=== PATIENT | male | born 1945 | race Caucasian/White ===

== ENCOUNTER 2018-06-06 11:00 | Inpatient (IN) ==
[2018-06-06] MEDS ORDERED: Sod Chloride 0.9% Inj 1,000 ML IV.SIG ONE ×2 (11:27→12:55)
--- NOTE | 2018-06-06 11:30 | ED ---
HPI General Chief complaint: Weakness Stated complaint: Weakness Time Seen by Provider: 06/06/18 11:15 Source: patient, family, RN notes reviewed and old records reviewed Mode of arrival: EMS Limitations: no limitations History of Present Illness HPI Narrative: 72 year old male presents to the emergency department for evaluation via EMS for generalized weakness. Patient has history of Prostate CA , lung CA and is currently being treated for leukemia. His last chemotherapy was a month ago. His oncologist is Dr. Mckeon with [facility], but he states he saw Dr. Purdy here on a recent admission and liked him. He is considering switching to Dr. Purdy. Patient states he is too weak to walk. He had a blood transfusion 2 days ago at [facility] and felt good after. However, he woke up yesterday morning with severe weakness and vomiting. He has not vomited today. Patient reports associated diarrhea. He denies any fevers, temp is 99.8 upon arrival. He denies any CP, SOB, Abdominal pain, constipation. He reports decreased appetite. He denies any blood in his vomit or stool. He also has hx of cardiac stent x3, not currently on any anticoagulants. Moderate severity. MD Complaint: Reports generalized weakness Onset (ago): day(s) (1) Duration: constant Location: Reports generalized Severity: moderate Relieving factors: none Exacerbating factors: none Context: Reports history of similar Associated symptoms: Reports loss of appetite and nausea/vomiting; Denies chest pain, confusion, dark stools, diaphoresis, dysuria, easy bruising, fever/chills , headaches, myalgias, rash, shortness of breath and syncope Related Data Home Medications Medication Instructions Recorded Confirmed amlodipine 10 mg PO DAILY 01/16/18 06/06/18 atorvastatin 40 mg PO DAILY 01/16/18 06/06/18 benazepril 40 mg PO DAILY 01/16/18 06/06/18 cholecalciferol (vitamin D3) 5,000 unit PO DAILY 01/16/18 06/06/18 [Vitamin D3] cyanocobalamin (vitamin B-12) 5,000 mcg SUBLINGUAL DAILY 01/16/18 06/06/18 [Vitamin B-12] ferrous sulfate 325 mg PO DAILY 01/16/18 06/06/18 hydrochlorothiazide 25 mg PO DAILY 01/16/18 06/06/18 metoprolol succinate 100 mg PO DAILY 01/16/18 06/06/18 mometasone-formoterol [Dulera] 2 puff INHALATION Q12H 01/16/18 06/06/18 niacin 1,000 mg PO DAILY 01/16/18 06/06/18 Allergies Allergy/AdvReac Type Severity Reaction Status Date / Time No Known Allergies Allergy Verified 06/06/18 14:51 Review of Systems ROS: all other systems reviewed are negative [facility] Social History Social History Substance History: No History of Abuse Second Hand Smoke Exposure: No Smoking Status: Former smoker How Often Do You Have a Drink Containing Alcohol: Never Recent Travel in [facility] within the Last 8 Weeks: No Recent Out of Country Travel within the Last 8 Weeks: No Immunization History Tetanus Immunization: Unsure Exam Const General: cooperative, no acute distress and lethargic Orientation: alert, awake and oriented x3 HENMT Head: normal to inspection Ears: hearing grossly normal bilaterally, external ears normal and TM's normal bilaterally Nose: external nose normal Mouth: oral mucosae normal Throat: posterior oropharynx normal Eyes General: appearance normal, both eyes and all related structures Conjunctivae: conjunctivae normal Pupils: PERRL Neck Neck: normal visual inspection Chest Chest: normal inspection of the chest Resp Effort & Inspection: normal respiratory effort and able to speak in complete sentences Auscultation: clear to auscultation bilaterally Cardio Rate: regular rate Rhythm: regular rhythm Heart Sounds: S1 normal and S2 normal Pulses: radial pulses present and dorsalis pedis present GI Inspection: normal to inspection Palpation: soft and nontender Skin General: no rashes or lesions noted Trauma: no lacerations or abrasions Neuro General: alert, awake and oriented x3 Speech: speech normal Extrem General: normal to inspection Psych Appearance: grossly normal and well kempt Mental Status: mental status grossly normal Speech and Movement: speech and movement normal Mood: congruent mood Affect: normal affect Attitude: cooperative Course Initial Documented Vital Signs Temperature 99.8 F H 06/06/18 11:13 Pulse Rate 93 H 06/06/18 11:13 Respiratory Rate 18 06/06/18 11:13 Blood Pressure 108/52 L 06/06/18 11:13 Pulse Oximetry 93 L 06/06/18 11:13 Last Documented Vital Signs Temperature 99.4 F 06/07/18 08:00 Pulse Rate 88 06/07/18 08:00 Respiratory Rate 20 06/07/18 08:00 Blood Pressure 98/51 L 06/07/18 08:00 Pulse Oximetry 98 06/07/18 08:00 Medical Decision Making ANDRA Attestation ANDRA supervised visit: Yes Attestation: I, Dr. Sharpe, have reviewed the advance practice practitioner's documentation and am in agreement, met with the patient face to face, made the diagnosis, and the medical decision making was done by me. *My assessment and Findings: This is a chronically ill-appearing man who presents with progressive weakness. He has pulmonary infiltrates on the right compatible with pneumonia. He is being admitted for treatment. Please see Acacia Jimenez NP's note for a more detailed H&P, final diagnosis and disposition MDM Narrative Medical decision making narrative: 72 year old male presents to the emergency department with complaints of generalized generalized weakness h/o of anemia and leukemia. IV access is obtained. EKG, CBC, CMP, lactic acid, magnesium, CK , TSH, troponin, PTT, PT/INR, type and screen, UA, chest x-ray are ordered and pending. Patient is given NS 1 L IV bolus, Zofran 4 mg IV. EKG shows SR, HR 87. CBC shows leukopenia of 2.6, 19% bandemia. CMP shows elevated BUN 25, creatinine of 2.23, elevated since previous BUN of 21, creatinine of 1.22. Lactic acid is 1.6. Magnesium is 1.5. CK is 44. Troponin is 0.26. TSH is 1.260. PTT is 36.4. PT/INR is 12.7/1.3. UA is pending. Chest x-ray shows Bilateral upper lobe densities. Decreasing density in the right lung base. Patient is given 2nd L NS bolus, Vancomycin 1 gm IV, Cefepime 2 gm IV. Patient will be admitted for pneumonia, DOM, elevated troponin. Medical Screen Exam Complete: Yes Emergency Medical Condition: Yes Differential Diagnosis Differential Diagnosis: anemia vs. electrolyte abnormality vs. dehydration vs. ACS vs. pneumonia vs. UTI vs. sepsis Medical Records Medical records reviewed: Yes I reviewed the patient's medical records. Lab Data Result diagrams: 06/07/18 05:00 06/07/18 05:00 Lab Results 0206/06/18 06/06/18 Range/Units 12:04 12:04 12:04 WBC 2.6 L (4.0-11.0) th/mm3 RBC 3.14 L (4.50-5.90) mil/mm3 Hgb 8.8 L (13.0-17.0) gm/dL Hct 25.9 L (39.0-51.0) % MCV 82.6 (80.0-100.0) fL MCH 28.0 (27.0-34.0) pg MCHC 33.9 (32.0-36.0) % RDW 25.5 H (11.6-17.2) % Plt Count 23 L (150-450) th/mm3 MPV 7.0 (7.0-11.0) fL Prelim Diff (Auto) Slide review pending Neut % (Auto) 48.5 (16.0-70.0) % Lymph % (Auto) 36.4 (9.0-44.0) % [place] % (Auto) 12.5 H (0.0-8.0) % Eos % (Auto) 2.1 (0.0-4.0) % Baso % (Auto) 0.5 (0.0-2.0) % Neut # (Auto) 1.2 L (1.8-7.7) th/mm3 Lymph # (Auto) 0.9 L (1.0-4.8) th/mm3 [place] # (Auto) 0.3 (0.0-0.9) th/mm3 Eos # (Auto) 0.1 (0.0-0.4) th/mm3 Baso # (Auto) 0.0 (0.0-0.2) th/mm3 WBC Differential Manual diff final Seg Neuts % (Manual) 38 (16-70) % Band Neuts % (Manual) 19 H (0-6) % Lymphocytes % (Manual) 28 (9-44) % Monocytes % (Manual) 7 (0-8) % Eosinophils % (Manual) 1 (0-4) % Basophils % (Manual) 3 H (0-2) % Metamyelocytes % (Man) 1 (0-1) % Blast Cells % (Manual) 3 H (0-0) % Abs Neuts (Manual) 1.5 L (1.8-7.7) th/mm3 Nucleated RBCs/100 WBC (0-0) /100 WBC Differential Comment . Platelet Estimate Low L (Normal) Platelet Morphology Enlarged H (Normal) Basophilic Stippling (None) Ovalocytes (None) PT 12.7 H (9.8-11.6) sec INR 1.3 Ratio APTT 36.4 H (23.4-31.7) sec Sodium 132 L (136-145) meq/L Potassium 4.1 (3.5-5.1) meq/L Chloride 100 (98-107) meq/L Carbon Dioxide 21.9 (21.0-32.0) meq/L Anion Gap 10 (5-15) meq/L BUN 24 H (7-18) mg/dL Creatinine 2.23 H (0.60-1.30) mg/dL Estimated GFR 29 L (>89) mL/min Random Glucose 70 L (74-106) mg/dL Lactic Acid (0.4-2.0) mmol/L Calcium 7.5 L (8.5-10.1) mg/dL Magnesium 1.5 (1.5-2.5) mg/dL Total Bilirubin 0.6 (0.2-1.0) mg/dL AST 11 L (15-37) U/L ALT 10 L (12-78) U/L Alkaline Phosphatase 37 L (45-117) U/L Total Creatine Kinase 44 (39-308) U/L Troponin I 0.26 H (0.02-0.05) ng/mL Total Protein 6.2 L (6.4-8.2) g/dL Albumin 2.2 L (3.4-5.0) g/dL TSH 1.260 (0.358-3.740) uIU/mL Urine Color (Yellw/Straw) Urine Clarity (Clear) Urine pH (5.0-8.5) Ur Specific Ramona (1.002-1.035) Urine Protein (Neg-Trace) mg/dL Urine Glucose (UA) (Negative) mg/dL Urine Ketones (Negative) mg/dL Urine Occult Blood (Negative) Urine Nitrate (Negative) Urine Bilirubin (Negative) Urine Urobilinogen (Less than 2) mg/dL Ur Leukocyte Esterase (Negative) Urine RBC (0-3) /hpf Urine WBC (0-5) /hpf Ur Squamous Epith Cells (0-5) /hpf Urine Mucus (Occasional) /lpf Micro UA Comment Ur Microscopic Review Urine Culture Comments Random Vancomycin Comment Blood Type Antibody Screen 06/06/18 06/06/18 06/06/18 Range/Units 12:04 12:04 15:41 WBC (4.0-11.0) th/mm3 RBC (4.50-5.90) mil/mm3 Hgb (13.0-17.0) gm/dL Hct (39.0-51.0) % MCV (80.0-100.0) fL MCH (27.0-34.0) pg MCHC (32.0-36.0) % RDW (11.6-17.2) % Plt Count (150-450) th/mm3 MPV (7.0-11.0) fL Prelim Diff (Auto) Neut % (Auto) (16.0-70.0) % Lymph % (Auto) (9.0-44.0) % [place] % (Auto) (0.0-8.0) % Eos % (Auto) (0.0-4.0) % Baso % (Auto) (0.0-2.0) % Neut # (Auto) (1.8-7.7) th/mm3 Lymph # (Auto) (1.0-4.8) th/mm3 [place] # (Auto) (0.0-0.9) th/mm3 Eos # (Auto) (0.0-0.4) th/mm3 Baso # (Auto) (0.0-0.2) th/mm3 WBC Differential Seg Neuts % (Manual) (16-70) % Band Neuts % (Manual) (0-6) % Lymphocytes % (Manual) (9-44) % Monocytes % (Manual) (0-8) % Eosinophils % (Manual) (0-4) % Basophils % (Manual) (0-2) % Metamyelocytes % (Man) (0-1) % Blast Cells % (Manual) (0-0) % Abs Neuts (Manual) (1.8-7.7) th/mm3 Nucleated RBCs/100 WBC (0-0) /100 WBC Differential Comment Platelet Estimate (Normal) Platelet Morphology (Normal) Basophilic Stippling (None) Ovalocytes (None) PT (9.8-11.6) sec INR Ratio APTT (23.4-31.7) sec Sodium (136-145) meq/L Potassium (3.5-5.1) meq/L Chloride (98-107) meq/L Carbon Dioxide (21.0-32.0) meq/L Anion Gap (5-15) meq/L BUN (7-18) mg/dL Creatinine (0.60-1.30) mg/dL Estimated GFR (>89) mL/min Random Glucose (74-106) mg/dL Lactic Acid 1.6 (0.4-2.0) mmol/L Calcium (8.5-10.1) mg/dL Magnesium (1.5-2.5) mg/dL Total Bilirubin (0.2-1.0) mg/dL AST (15-37) U/L ALT (12-78) U/L Alkaline Phosphatase (45-117) U/L Total Creatine Kinase (39-308) U/L Troponin I (0.02-0.05) ng/mL Total Protein (6.4-8.2) g/dL Albumin (3.4-5.0) g/dL TSH (0.358-3.740) uIU/mL Urine Color Yellow (Yellw/Straw) Urine Clarity Clear (Clear) Urine pH 6.0 (5.0-8.5) Ur Specific Ramona 1.006 (1.002-1.035) Urine Protein Negative (Neg-Trace) mg/dL Urine Glucose (UA) Negative (Negative) mg/dL Urine Ketones Negative (Negative) mg/dL Urine Occult Blood Negative (Negative) Urine Nitrate Negative (Negative) Urine Bilirubin Negative (Negative) Urine Urobilinogen Less than 2 (Less than 2) mg/dL Ur Leukocyte Esterase Negative (Negative) Urine RBC Less than 1 (0-3) /hpf Urine WBC 2 (0-5) /hpf Ur Squamous Epith Cells 1 (0-5) /hpf Urine Mucus Few H (Occasional) /lpf Micro UA Comment Culture not ind Ur Microscopic Review Not Reportable Urine Culture Comments Culture not ind Random Vancomycin Comment Blood Type O Negative Antibody Screen Negative 06/06/18 06/07/18 06/07/18 Range/Units 23:59 05:00 05:00 WBC 1.8 L (4.0-11.0) th/mm3 RBC 3.06 L (4.50-5.90) mil/mm3 Hgb 8.5 L (13.0-17.0) gm/dL Hct 25.1 L (39.0-51.0) % MCV 82.0 (80.0-100.0) fL MCH 27.7 (27.0-34.0) pg MCHC 33.8 (32.0-36.0) % RDW 25.6 H (11.6-17.2) % Plt Count 16 L* D (150-450) th/mm3 MPV 8.1 (7.0-11.0) fL Prelim Diff (Auto) Slide review pending Neut % (Auto) 59.0 (16.0-70.0) % Lymph % (Auto) 26.9 (9.0-44.0) % [place] % (Auto) 10.1 H (0.0-8.0) % Eos % (Auto) 2.9 (0.0-4.0) % Baso % (Auto) 1.1 (0.0-2.0) % Neut # (Auto) 1.1 L (1.8-7.7) th/mm3 Lymph # (Auto) 0.5 L (1.0-4.8) th/mm3 [place] # (Auto) 0.2 (0.0-0.9) th/mm3 Eos # (Auto) 0.1 (0.0-0.4) th/mm3 Baso # (Auto) 0.0 (0.0-0.2) th/mm3 WBC Differential Manual diff final Seg Neuts % (Manual) 43 (16-70) % Band Neuts % (Manual) 18 H (0-6) % Lymphocytes % (Manual) 21 (9-44) % Monocytes % (Manual) 3 (0-8) % Eosinophils % (Manual) 8 H (0-4) % Basophils % (Manual) 1 (0-2) % Metamyelocytes % (Man) (0-1) % Blast Cells % (Manual) 6 H (0-0) % Abs Neuts (Manual) 1.1 L (1.8-7.7) th/mm3 Nucleated RBCs/100 WBC 3 H (0-0) /100 WBC Differential Comment . Platelet Estimate Rare L (Normal) Platelet Morphology Normal (Normal) Basophilic Stippling Moderate H (None) Ovalocytes 1+ H (None) PT (9.8-11.6) sec INR Ratio APTT (23.4-31.7) sec Sodium 137 (136-145) meq/L Potassium 3.9 (3.5-5.1) meq/L Chloride 105 (98-107) meq/L Carbon Dioxide 22.3 (21.0-32.0) meq/L Anion Gap 10 (5-15) meq/L BUN 20 H (7-18) mg/dL Creatinine 1.84 H (0.60-1.30) mg/dL Estimated GFR 36 L (>89) mL/min Random Glucose 86 (74-106) mg/dL Lactic Acid (0.4-2.0) mmol/L Calcium 7.9 L (8.5-10.1) mg/dL Magnesium (1.5-2.5) mg/dL Total Bilirubin (0.2-1.0) mg/dL AST (15-37) U/L ALT (12-78) U/L Alkaline Phosphatase (45-117) U/L Total Creatine Kinase (39-308) U/L Troponin I 0.23 H 0.18 H (0.02-0.05) ng/mL Total Protein (6.4-8.2) g/dL Albumin (3.4-5.0) g/dL TSH (0.358-3.740) uIU/mL Urine Color (Yellw/Straw) Urine Clarity (Clear) Urine pH (5.0-8.5) Ur Specific [place] (1.002-1.035) Urine Protein (Neg-Trace) mg/dL Urine Glucose (UA) (Negative) mg/dL Urine Ketones (Negative) mg/dL Urine Occult Blood (Negative) Urine Nitrate (Negative) Urine Bilirubin (Negative) Urine Urobilinogen (Less than 2) mg/dL Ur Leukocyte Esterase (Negative) Urine RBC (0-3) /hpf Urine WBC (0-5) /hpf Ur Squamous Epith Cells (0-5) /hpf Urine Mucus (Occasional) /lpf Micro UA Comment Ur Microscopic Review Urine Culture Comments Random Vancomycin 8.5 Comment Blood Type Antibody Screen Imaging Data Attestation: I personally reviewed and interpreted this imaging study as follows : Radiologist's impression: Chest X-Ray 06/06/18 11:27 CONCLUSION: Bilateral upper lobe densities. Decreasing density in the right lung base. ECG Data EKG Prior to Arrival: No Attestation: I personally reviewed and interpreted this ECG as follows: (His EKG shows a normal sinus rhythm with a rate of 87. No acute STT wave changes.) Discharge Plan Discharge Disposition Patient Disposition: ED Admit(ED Internal Use Only) Discharge Order Discharge Orders: ED Use Only Admit Order (Routine); Ordered 06/06/18 Ordered By: Acacia Jimenez Discharge Details Diagnosis: Pneumonia, Acute kidney injury, Elevated troponin Physicians Team ED Provider: Dorene Sharpe ED Midlevel Provider: Acacia Jimenez Primary Care Provider: Vadim Myrick Attending Provider: Promise Gooden Other Providers: Eder Purdy ; Winnie Han ; Sherrell Corona Status ED Status: Left Department Discharge Information Discharge Date/Time: 06/06/18 18:31
--- NOTE | 2018-06-06 12:19 | XR ---
EXAM DATE: 06/06/2018 12:05 PM EST AGE/SEX: 72 years / Male INDICATIONS: Weakness. CLINICAL DATA: This is the patient's initial encounter. Patient reports that signs and symptoms have been present for 3 days and indicates a pain score of 0/10. MEDICAL/SURGICAL HISTORY: . leukemia . port for chemo for leukemia, cardiac stents COMPARISON: [facility] [place], CHEST 1V SINGLE AP, 05/25/2018. . FINDINGS: A single AP view of the chest demonstrates right upper lobe opacity and volume loss. Decreasing densi ty in the right lung. Minimal opacity in the left upper lobe. Right-sided port unchanged. The cardiom ediastinal contours are unremarkable. Osseous structures are intact. CONCLUSION: Bilateral upper lobe densities. Decreasing density in the right lung base. Electronically signed by: Nick Christianson MD Board Certified Radiologist 06/06/2018 12:18 PM EST
[2018-06-06 12:30] LABS: Baso % (Auto) 0.5 % (0.0-2.0); Eos # (Auto) 0.1 th/mm3 (0.0-0.4); Eos % (Auto) 2.1 % (0.0-4.0); Hematocrit 25.9 % (39.0-51.0); Hemoglobin 8.8 gm/dL (13.0-17.0); Lymph # (Auto) 0.9 th/mm3 (1.0-4.8); Lymph % (Auto) 36.4 % (9.0-44.0); Mean Corpuscular HGB Conc 33.9 % (32.0-36.0); Mean Corpuscular Volume 82.6 fL (80.0-100.0); Mono # (Auto) 0.3 th/mm3 (0.0-0.9); Mono % (Auto) 12.5 % (0.0-8.0); Neut # (Auto) 1.2 th/mm3 (1.8-7.7); Neut % (Auto) 48.5 % (16.0-70.0); Platelet Count 23 th/mm3 (150-450); Red Blood Count 3.14 mil/mm3 (4.50-5.90); Red Cell Distribution Width 25.5 % (11.6-17.2); White Blood Count 2.6 th/mm3 (4.0-11.0)
[2018-06-06 12:47] LABS: Activated Partial Thrombo Time 36.4 sec (23.4-31.7); INR 1.3 Ratio; Prothrombin Time 12.7 sec (9.8-11.6)
[2018-06-06] MEDS ORDERED: Vancomycin Inj 1,000 MG in Sodium Chlor 0.9% Inj 250 ML IV.SIG ONE (12:52)
[2018-06-06 12:53] LABS: Albumin 2.2 g/dL (3.4-5.0); Anion Gap 10 meq/L (5-15); Aspartate Aminotransferase 11 U/L (15-37); Blood Urea Nitrogen 24 mg/dL (7-18); Calcium 7.5 mg/dL (8.5-10.1); Carbon Dioxide 21.9 meq/L (21.0-32.0); Chloride 100 meq/L (98-107); Glomerular Filtration Rate 29 mL/min (>89); Glucose,Random 70 mg/dL (74-106); Magnesium 1.5 mg/dL (1.5-2.5); Potassium 4.1 meq/L (3.5-5.1); Sodium 132 meq/L (136-145)
[2018-06-06 13:04] LABS: Alanine Aminotransferase 10 U/L (12-78); Alkaline Phosphatase 37 U/L (45-117); Total Protein 6.2 g/dL (6.4-8.2); Troponin I 0.26 ng/mL (0.02-0.05)
[2018-06-06 13:10] LABS: Creatine Kinase 44 U/L (39-308)
[2018-06-06 13:13] LABS: Blast Cells 3 % (0-0); Eosinophils 1 % (0-4); Lymphocytes 28 % (9-44); Metamyelocytes 1 % (0-1); Monocytes 7 % (0-8)
--- NOTE | 2018-06-06 13:14 | ECG ---
Date Performed: 06/06/2018 Time Performed: 12:23:17 PTAGE: 72 years EKG: Sinus rhythm LOW QRS VOLTAGE IN PRECORDIAL LEADS NONSPECIFIC ST ABNORMALITIES PREVIOUS TRACING : 05/25/2018 17.15 Compared to previous tracing, heart rate has slowed, slight ST elevation in V4 and V5 is now present. DOCTOR: Manuel Landaverde Interpretating Date/Time 06/06/2018 13:13:13
[2018-06-06] MEDS ORDERED: Bisacodyl 10 MG Supp RECTAL PRN (14:14)
[2018-06-06] MEDS ORDERED: Custom Consult Pharmacy OTHER PRN (14:18)
[2018-06-06] MEDS ORDERED: Vancomycin Consult Pharmacy OTHER PRN (14:18)
[2018-06-06 16:16] LABS: Bilirubin,Urine Negative (Negative); Clarity,Urine Clear (Clear); Color,Urine Yellow (Yellw/Straw); Glucose,Urine (UA) Negative (Negative); Leukocyte Esterase,Urine Negative (Negative); Mucus,Urine Few /lpf (Occasional); Nitrite,Urine Negative (Negative); Specific Gravity,Urine 1.006 (1.002-1.035); Squamous Epithelial Cell,Urine 1 /hpf (0-5)
[2018-06-06] MEDS ORDERED: guaiFENesin/Dextromethorphan 200 MG/20 MG 10 ML UDC PO PRN (17:12)
--- NOTE | 2018-06-06 17:37 | P.HPIM ---
History of Present Illness Primary Care Physician: Vadim Myrick MD Chief Complaint: Feeling weak, fevers and chills History of Present Illness: 72 -year-old white male with a history of myelodysplastic syndrome on recent systemic chemotherapy back in April with Dr. Mckeon, prostate cancer, previous right-sided lung cancer status post resection and radiation, hypertension who was recently admitted on May 24 for sepsis with bilateral pneumonia and discharged on 05/29 with 7-day course of Levaquin, Zithromax, and steroids taper presented back with a 2-day history of increased weakness to the point where he is unable to get up and ambulate independently which is his baseline with also complains of chills and fevers. In addition he has had poor appetite for 2 days with increased nausea and episode of nonbilious vomiting today. He denies any abdominal pain or any diarrhea. He denies any dysuria urinary frequency or urgency. He reports dry cough no active shortness of breath or chest pain. He did follow-up with Dr. Mckeon post discharge and was given a blood transfusion 4 days ago on Sunday at [facility]. His chemo is currently still on hold. His who is at bedside is wanting to switch him over to Dr. Purdy as he was seen by him during the previous admission. During the previous admission, patient was on IV Zosyn , azithromycin, vancomycin. He did not require oxygen upon discharge to home. Inpatient Certification Inpatient Certification: I certify that the inpatient services were ordered in accordance with Medicare regulations governing the order. This includes certification that hospital inpatient services are reasonable and necessary and in the case of services not specified as inpatient-only under 42 CFR 419.22(n), that they are appropriately provided as inpatient services in accordance to with the 2-midnight benchmark under 43 CFR 412.3(e) Estimated Total Length of Stay (Days): 3 Plans for Post Hospital Care: Not yet determined Review of Systems Constitutional: Reports as per HPI, Reports chills, Reports fatigue, Reports fever(s), Denies headache(s), Reports malaise and Reports weakness Eyes: Denies blurry vision, Denies change in vision and Denies eye pain Ears, Nose, Mouth, and Throat: Denies abnormal hearing, Denies headache(s), Denies mouth pain, Denies nasal congestion, Denies neck pain and Denies sore throat Cardiovascular: Denies chest pain, Denies pedal edema, Denies palpitations and Denies dyspnea Respiratory: Reports cough, Reports hemoptysis, Denies excessive phlegm production, Denies dyspnea, Reports stridor and Reports wheezing Gastrointestinal: Denies abdominal pain, Denies constipation, Denies loose stools, Reports nausea and Reports vomiting Musculoskeletal: Denies back pain, Denies myalgias, Denies arthralgias, Denies neck pain and Denies numbness Skin/Breast: Denies new lesions and Denies rash Neurologic: Denies abnormal hearing, Denies headache(s), Denies focal weakness, Denies memory loss, Denies numbness and Reports weakness Psychiatric: Denies anxiety, Denies depression and Denies memory loss Endocrine: Denies cold intolerance, Denies heat intolerance and Denies palpitations Hematologic/Lymphatic: Denies easy bleeding and Denies easy bruising PMFSH Social History Social History Substance History: No History of Abuse Second Hand Smoke Exposure: No Smoking Status: Former smoker How Often Do You Have a Drink Containing Alcohol: Never Recent Travel in [facility] within the Last 8 Weeks: No Recent Out of Country Travel within the Last 8 Weeks: No Immunization History Tetanus Immunization: Unsure Medications and Allergies Allergies Allergy/AdvReac Type Severity Reaction Status Date / Time No Known Allergies Allergy Verified 06/06/18 14:51 Home Medications Medication Instructions Recorded Confirmed Type amlodipine 10 mg PO DAILY 01/16/18 06/06/18 History atorvastatin 40 mg PO DAILY 01/16/18 06/06/18 History benazepril 40 mg PO DAILY 01/16/18 06/06/18 History cholecalciferol (vitamin D3) 5,000 unit PO DAILY 01/16/18 06/06/18 History [Vitamin D3] cyanocobalamin (vitamin B-12) 5,000 mcg SUBLINGUAL DAILY 01/16/18 06/06/18 History [Vitamin B-12] ferrous sulfate 325 mg PO DAILY 01/16/18 06/06/18 History hydrochlorothiazide 25 mg PO DAILY 01/16/18 06/06/18 History metoprolol succinate 100 mg PO DAILY 01/16/18 06/06/18 History mometasone-formoterol [Dulera] 2 puff INHALATION Q12H 01/16/18 06/06/18 History niacin 1,000 mg PO DAILY 01/16/18 06/06/18 History Active Medications: Active Medications Acetaminophen (Tylenol) 650 mg PO Q4H PRN PRN Reason: Temp > 100.4 Al Hydroxide/Mg Hydroxide (Milk Of Magnesia Liq) 30 ml PO Q12H PRN PRN Reason: Mild Constipation Albuterol (Duoneb Neb (Prn)) 1 ampul NEB Q4HR NEB PRN PRN Reason: SHORTNESS OF BREATH Bisacodyl (Dulcolax Supp) 10 mg RECTAL DAILY PRN PRN Reason: SEVERE CONSITIPATION Guaifenesin/Dextromethorphan (Robitussin Dm Liq) 10 ml PO Q4H PRN PRN Reason: COUGH Azithromycin 250 mg/ Sodium (Chloride) 250 mls @ 250 mls/hr IV.SIG Q24H [facility] Cefepime HCl 2,000 mg/ Sodium (Chloride) 100 mls @ 200 mls/hr IV.SIG Q12H [facility] Sodium Chloride (Ns Inj) 1,000 mls @ 100 mls/hr IV.CONT .Q10H [facility] Lactulose (Lactulose Liq) 30 ml PO DAILY PRN PRN Reason: SEVERE CONSITIPATION Ondansetron HCl (Zofran Inj) 4 mg IV.PUSH Q6H PRN PRN Reason: NAUSEA OR VOMITING Pharmacy Profile Note (Custom Consult Pharmacy) 1 each OTHER UNSCH PRN PRN Reason: PHARMACY DOCUMENTATION Pharmacy Profile Note (Vancomycin Consult Pharmacy) 1 each OTHER UNSCH PRN PRN Reason: Pharmacy to dose Senna/Docusate Sodium (Ольга-Colace) 1 tab PO BID [facility] Sennosides (Senokot) 17.2 mg PO Q12H PRN PRN Reason: Moderate Constipation Sodium Chloride (Ns Flush) 2 ml IV.FLUSH PRN PRN PRN Reason: FLUSH AFTER USING IV ACCESS Sodium Chloride (Ns Flush) 2 ml IV.FLUSH BID [facility] Sodium Chloride (Ns Flush) 2 ml IV.FLUSH PRN PRN PRN Reason: FLUSH AFTER USING IV ACCESS Physical Exam Vital signs: Vital Signs 06/06/18 11:13 06/06/18 11:27 06/06/18 11:55 Temperature 99.8 F H Pulse Rate 93 H 92 H Respiratory Rate 18 Blood Pressure 108/52 L 92/52 L Pulse Oximetry 93 L 98 06/06/18 15:49 Temperature Pulse Rate 91 H Respiratory Rate 20 Blood Pressure 113/56 L Pulse Oximetry 97 Intake & Output 06/05/18 06/06/18 06/06/18 18:59 06:59 18:59 Intake Total 2350 / 2350 Balance 2350 / 2350 Weight 86.183 kg Intake: IV 2350 / 2350 Maxipime Inj 2,000 MG In NS Inj 100 / 100 100 ML @ 200 mls/hr IV.SIG ONCE ONE Rx#:[id number] NS Inj 1,000 ML @ Wide Open IV. 1999 SIG BOLUS ONE Rx#:[id number] Vancomycin Inj 1,000 MG In NS 250 / 250 Inj 250 ML @ 250 mls/hr IV.SIG ONCE ONE Rx#:[id number] Narrative: GENERAL: Well-nourished well-developed ill-appearing elderly male sitting up in the ED stretcher in the emergency room SKIN: Warm and dry. HEAD: Atraumatic. Normocephalic. EYES: Pupils equal and round. No scleral icterus. No injection or drainage. ENT: No nasal bleeding or discharge. Mucous membranes pink and moist. NECK: Trachea midline. No JVD. CARDIOVASCULAR: Regular rate and rhythm. RESPIRATORY: No accessory muscle use. Few bilateral crackles, no wheezes, no rhonchi GASTROINTESTINAL: Abdomen soft, non-tender, nondistended. Normoactive bowel sounds MUSCULOSKELETAL: Extremities without clubbing, cyanosis, or edema. No obvious deformities. NEUROLOGICAL: Awake and alert person place and time. No obvious cranial nerve deficits. Motor grossly within normal limits. Five out of 5 muscle strength in the arms and legs. Normal speech. PSYCHIATRIC: Appropriate mood and affect; insight and judgment normal. Results Labs CBC & Chem 7: 06/12/18 05:00 06/12/18 05:00 Imaging Impressions Chest X-Ray 06/06/18 11:27 CONCLUSION: Bilateral upper lobe densities. Decreasing density in the right lung base. Caprini VTE Risk Assessment Caprini VTE Risk Assessment: Moderate/High Risk (score >= 2) Caprini Risk Assessment Model: Point Value = 1 Point Value = 2 Point Value = 3 Point Value = 5 Age 41-60 Minor surgery BMI > 25 kg/m2 Swollen legs Varicose veins or History of unexplained or recurrent spontaneous Oral contraceptives or hormone replacement Sepsis (< 1 month) Serious lung disease, including pneumonia (< 1 month) Abnormal pulmonary function Acute myocardial infarction Congestive heart failure (< 1 month) History of inflammatory bowel disease Medical patient at bed rest Age 61-74 Arthroscopic surgery Major open surgery (> 45 min) Laparoscopic surgery (> 45 min) Malignancy Confined to bed (> 72 hours) Immobilizing plaster cast Central venous access Age >= 75 History of VTE Family history of VTE Factor V Leiden Prothrombin [id number] Lupus anticoagulant Anticardiolipin antibodies Elevated serum homocysteine Heparin-induced thrombocytopenia Other congenital or acquired thrombophilia Stroke (< 1 month) Elective arthroplasty Hip, pelvis, or leg fracture Acute spinal cord injury (< 1 month) Prophylaxis Regimen: Total Risk Factor Score Risk Level Prophylaxis Regimen 0-1 Low Early ambulation 2 Moderate Order ONE of the following: *Sequential Compression Device (SCD) *Heparin 5000 units SQ BID 3-4 Higher Order ONE of the following medications: *Heparin 5000 units SQ TID *Enoxaparin/Lovenox 40 mg SQ daily (WT < 150 kg, CrCl > 30 mL/min) *Enoxaparin/Lovenox 30 mg SQ daily (WT < 150 kg, CrCl > 10-29 mL/min) *Enoxaparin/Lovenox 30 mg SQ BID (WT < 150 kg, CrCl > 30 mL/min) AND/OR *Sequential Compression Device (SCD) 5 or more Highest Order ONE of the following medications: *Heparin 5000 units SQ TID (Preferred with Epidurals) *Enoxaparin/Lovenox 40 mg SQ daily (WT < 150 kg, CrCl > 30 mL/min) *Enoxaparin/Lovenox 30 mg SQ daily (WT < 150 kg, CrCl > 10-29 mL/min) *Enoxaparin/Lovenox 30 mg SQ BID (WT < 150 kg, CrCl > 30 mL/min) AND *Sequential Compression Device (SCD) Assessment and Plan Plan 72-year-old male with history of 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 IV vancomycin given in the emergency room, will not continue due to acute kidney injury and will start IV Zyvox Acute kidney injury superimposed on chronic kidney disease stage IIlikely due to poor oral intake, organ dysfunction due to sepsis-IV fluid hydration, avoid nephrotoxins, hold home TIESHA inhibitor due to also superimposed hypotension Elevated troponin Ipatient has no complaint of chest pain this may be due to his acute kidney injury, will trend troponin I due to history of CAD and follow- up clinically. High-grade myelodysplastic syndromeconsult Dr. Purdy who had seen the patient during the previous hospitalization. Pancytopenia -worsening platelets likely due to sepsis and myelodysplastic syndrome, monitor, transfusions as needed Hyponatremia due to hypovolemianormal saline DO NOT RESUSCITATE status Physical therapy evaluation Discussed with at bedside
[2018-06-06] MEDS: Azithromycin Inj 250 MG in Sodium Chlor 0.9% Inj 250 ML IV.SIG SCH (18:01)
[2018-06-06] MEDS: Sod Chloride 0.9% Inj 1,000 ML IV.CONT SCH (18:01)
--- NOTE | 2018-06-06 18:19 | P.CON ---
History of Present Illness Service: Hematology/oncology. Consult date: 06/06/18 Requesting Physician: Dulce Maurice Reason for Consult: High-grade myelodysplastic syndrome. Pancytopenia. Primary Care Provider: Vadim Myrick MD Chief Complaint: Feeling weak, fevers and chills. History of Present Illness: Oncologic history and treatment history: 1. In January 2018 he was diagnosed with high-grade myelodysplastic syndrome; RAEB-2 with close to 20% blasts on bone marrow on cytologic review. He was initiated on systemic chemotherapy with Dacogen in January and has thus far received 3 cycles; day 1-5 of a 28-day cycle. Per his he is scheduled to resume treatment next week (under the care of Dr. Mckeon of [place] [facility]). 2. 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 3. In 2017 he was diagnosed with a left-sided lung carcinoma which was treated with SB RT while he was still living in [place], [place]. 4. In 2005 or 2006 the patient was diagnosed with carcinoma of the prostate, he underwent prostatectomy. In 2011 he was found to have relapsed within the bladder and underwent external beam radiation therapy (in [place]). History of presenting illness: Mr. Cabral presents to [facility] emergency department with complaints of generalized weakness and fatigue. He was discharged from this facility on after having spent 5 days in the hospital including 2 days in the critical care unit. He at that time was treated for neutropenic sepsis secondary to pneumonia. The patient reports having required red cell transfusion earlier this week; 06/03/2018 at [facility] through the office of his primary oncologist Dr. Mckeon. Upon evaluation in the emergency department patient was noted to be pancytopenic , his neutrophil count was noted to be 1.5, hemoglobin 8.8 g/dL and platelet count of 23,000 per microliter. The patient noted to have a low-grade temp of 99.8 F, chest x-ray revealed improvement in consolidative changes involving the right lower lobe. He is unable to give me much of a history because he seems to drift in and out of sleep. He has clearly been failing to thrive. Review of Systems Patient reports generalized weakness, fatigue, loss of appetite, fevers feeling. HEENT: Denies headaches, blurry vision, difficulty swallowing shortness of 30. Respiratory: Reports difficulty breathing with minimal exertion. Reports cough denies hemoptysis denies phlegm production. Cardiovascular: Denies angina-like chest pain, PND, orthopnea. GI: Reports decreased appetite, denies nausea, vomiting, diarrhea, hematochezia or melena. UG: Denies dysuria hematuria. Skin: No complaints. 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 No other complaints reported. ON LICENSE OF [facility] - History History Provided By: Patient - Medical History Medical History: Medical History (Last Reviewed 06/06/18 @ 18:14 by Eder Purdy MD) Anemia CAD (coronary artery disease) Carcinoma of prostate Chronic kidney disease Deep vein thrombosis (DVT) of right lower extremity GERD (gastroesophageal reflux disease) HTN (hypertension) Hyperlipemia Myelodysplastic syndrome Non-small cell carcinoma of left lung PVD (peripheral vascular disease) Presence of IVC filter Thrombocytopenia Vitamin D deficiency - Surgical History Surgical History: Surgical History (Last Reviewed 06/06/18 @ 18:14 by Eder Purdy MD) H/O heart artery stent History of prostate surgery S/P lobectomy of lung S/P right coronary artery (RCA) stent placement - Family History Family History: Family History (Last Reviewed 06/06/18 @ 18:14 by Eder Purdy MD) Other Family history normal - Tobacco History Second Hand Smoke Exposure: No Smoking Status: Former smoker - Alcohol History How Often Do You Have a Drink Containing Alcohol: Never - Substance Use History Substance History: No History of Abuse - Travel History Recent Travel in the [place] Within the Last 8 Weeks: No Recent Travel Out of the Country Within the Last 8 Weeks: No - Immunization History Tetanus Immunization: Unsure Medications and Allergies Active Medications: Active Medications Acetaminophen (Tylenol) 650 mg PO Q4H PRN PRN Reason: Temp > 100.4 Al Hydroxide/Mg Hydroxide (Milk Of Magnesia Liq) 30 ml PO Q12H PRN PRN Reason: Mild Constipation Albuterol (Duoneb Neb (Prn)) 1 ampul NEB Q4HR NEB PRN PRN Reason: SHORTNESS OF BREATH Atorvastatin Calcium (Lipitor) 40 mg PO DAILY D[facility]ON Bisacodyl (Dulcolax Supp) 10 mg RECTAL DAILY PRN PRN Reason: SEVERE CONSITIPATION Ferrous Sulfate (Ferosul) 325 mg PO DAILY COUNTS INCLUDE 234 BEDS AT THE [facility] Guaifenesin/Dextromethorphan (Robitussin Dm Liq) 10 ml PO Q4H PRN PRN Reason: COUGH Azithromycin 250 mg/ Sodium (Chloride) 250 mls @ 250 mls/hr IV.SIG Q24H DILLON Last Admin: 06/06/18 18:01 Dose: 250 mls/hr Cefepime HCl 2,000 mg/ Sodium (Chloride) 100 mls @ 200 mls/hr IV.SIG Q12H DILLON Sodium Chloride (Ns Inj) 1,000 mls @ 100 mls/hr IV.CONT .Q10H COUNTS INCLUDE 234 BEDS AT THE [facility] Last Admin: 06/06/18 18:01 Dose: 100 mls/hr Linezolid (Zyvox 600 Mg Premix) 300 mls @ 300 mls/hr IV.SIG Q12H [facility] Lactulose (Lactulose Liq) 30 ml PO DAILY PRN PRN Reason: SEVERE CONSITIPATION Metoprolol Succinate (Toprol Xl) 25 mg PO DAILY COUNTS INCLUDE 234 BEDS AT THE [facility] Ondansetron HCl (Zofran Inj) 4 mg IV.PUSH Q6H PRN PRN Reason: NAUSEA OR VOMITING Patient Own Medication: Mometasone- Formoterol [Dulera] 2 Puff 0 each INH Q12H COUNTS INCLUDE 234 BEDS AT THE [facility] Pharmacy Profile Note (Custom Consult Pharmacy) 1 each OTHER UNSCH PRN PRN Reason: PHARMACY DOCUMENTATION Senna/Docusate Sodium (Ольга-Colace) 1 tab PO BID COUNTS INCLUDE 234 BEDS AT THE [facility] Sennosides (Senokot) 17.2 mg PO Q12H PRN PRN Reason: Moderate Constipation Sodium Chloride (Ns Flush) 2 ml IV.FLUSH PRN PRN PRN Reason: FLUSH AFTER USING IV ACCESS Sodium Chloride (Ns Flush) 2 ml IV.FLUSH BID COUNTS INCLUDE 234 BEDS AT THE [facility] Sodium Chloride (Ns Flush) 2 ml IV.FLUSH PRN PRN PRN Reason: FLUSH AFTER USING IV ACCESS Allergies Allergy/AdvReac Type Severity Reaction Status Date / Time No Known Allergies Allergy Verified 06/06/18 14:51 Home Medications Medication Instructions Recorded Confirmed Type amlodipine 10 mg PO DAILY 01/16/18 06/06/18 History atorvastatin 40 mg PO DAILY 01/16/18 06/06/18 History benazepril 40 mg PO DAILY 01/16/18 06/06/18 History cholecalciferol (vitamin D3) 5,000 unit PO DAILY 01/16/18 06/06/18 History [Vitamin D3] cyanocobalamin (vitamin B-12) 5,000 mcg SUBLINGUAL DAILY 01/16/18 06/06/18 History [Vitamin B-12] ferrous sulfate 325 mg PO DAILY 01/16/18 06/06/18 History hydrochlorothiazide 25 mg PO DAILY 01/16/18 06/06/18 History metoprolol succinate 100 mg PO DAILY 01/16/18 06/06/18 History mometasone-formoterol [Dulera] 2 puff INHALATION Q12H 01/16/18 06/06/18 History niacin 1,000 mg PO DAILY 01/16/18 06/06/18 History Physical Exam Vital signs: Vital Signs 06/06/18 11:13 06/06/18 11:27 06/06/18 11:55 Temperature 99.8 F H Pulse Rate 93 H 92 H Respiratory Rate 18 Blood Pressure 108/52 L 92/52 L Pulse Oximetry 93 L 98 06/06/18 15:49 Temperature Pulse Rate 91 H Respiratory Rate 20 Blood Pressure 113/56 L Pulse Oximetry 97 Intake & Output 06/05/18 06/06/18 06/06/18 18:59 06:59 18:59 Intake Total 2350 / 2350 Balance 2350 / 2350 Weight 86.183 kg Intake: IV 2350 / 2350 Maxipime Inj 2,000 MG In NS Inj 100 / 100 100 ML @ 200 mls/hr IV.SIG ONCE ONE Rx#:[id number] NS Inj 1,000 ML @ Wide Open IV. 1999 SIG BOLUS ONE Rx#:[id number] Vancomycin Inj 1,000 MG In NS 250 / 250 Inj 250 ML @ 250 mls/hr IV.SIG ONCE ONE Rx#:[id number] Narrative: General physical appearance: Elderly male, laying in bed, appears to be chronically ill, pale, drifts in and out of sleep. HEENT: Head atraumatic no cephalic, conjunctivae pale, sclerae anicteric, oral exam dry mucous membranes. Neck exam: No palpable cervical or supraclavicular adenopathy. Respiratory exam: Good air movement bilaterally over the upper and middle lung zones, poor inspiratory effort, decreased bibasilar breath sounds. No rhonchi, rales or wheezes. Cardiovascular: Regular rate and rhythm, S1-S2 systolic murmur. Abdominal exam: Protuberant, soft, no obvious tenderness, no obvious organ enlargement specifically hepatosplenic megaly. Lower tremors: No pretibial edema no calf tenderness. Muscular skeletal: Generally decreased muscle mass. 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 Psychiatric: Difficult to assess, he is somewhat somnolent and sleepy/drowsy. But it seems to be oriented to place and time and person. Results - Labs CBC & Chem 7: 06/06/18 12:04 06/06/18 12:04 Labs: Laboratory Results - last 24 hr 06/06/18 06/06/18 06/06/18 12:04 12:04 12:04 WBC 2.6 L RBC 3.14 L Hgb 8.8 L Hct 25.9 L MCV 82.6 MCH 28.0 MCHC 33.9 RDW 25.5 H Plt Count 23 L MPV 7.0 Prelim Diff (Auto) Slide review pending Neut % (Auto) 48.5 Lymph % (Auto) 36.4 Cannon % (Auto) 12.5 H Eos % (Auto) 2.1 Baso % (Auto) 0.5 Neut # (Auto) 1.2 L Lymph # (Auto) 0.9 L Cannon # (Auto) 0.3 Eos # (Auto) 0.1 Baso # (Auto) 0.0 WBC Differential Manual diff final Seg Neuts % (Manual) 38 Band Neuts % (Manual) 19 H Lymphocytes % (Manual) 28 Monocytes % (Manual) 7 Eosinophils % (Manual) 1 Basophils % (Manual) 3 H Metamyelocytes % (Man) 1 Blast Cells % (Manual) 3 H Abs Neuts (Manual) 1.5 L Differential Comment . Platelet Estimate Low L Platelet Morphology Enlarged H PT 12.7 H INR 1.3 APTT 36.4 H Sodium 132 L Potassium 4.1 Chloride 100 Carbon Dioxide 21.9 Anion Gap 10 BUN 24 H Creatinine 2.23 H Estimated GFR 29 L Random Glucose 70 L Lactic Acid Calcium 7.5 L Magnesium 1.5 Total Bilirubin 0.6 AST 11 L ALT 10 L Alkaline Phosphatase 37 L Total Creatine Kinase 44 Troponin I 0.26 H Total Protein 6.2 L Albumin 2.2 L TSH 1.260 Urine Color Urine Clarity Urine pH Ur Specific Henry Urine Protein Urine Glucose (UA) Urine Ketones Urine Occult Blood Urine Nitrate Urine Bilirubin Urine Urobilinogen Ur Leukocyte Esterase Urine RBC Urine WBC Ur Squamous Epith Cells Urine Mucus Micro UA Comment Ur Microscopic Review Urine Culture Comments Blood Type Antibody Screen 06/06/18 06/06/18 06/06/18 12:04 12:04 15:41 WBC RBC Hgb Hct MCV MCH MCHC RDW Plt Count MPV Prelim Diff (Auto) Neut % (Auto) Lymph % (Auto) Cannon % (Auto) Eos % (Auto) Baso % (Auto) Neut # (Auto) Lymph # (Auto) Cannon # (Auto) Eos # (Auto) Baso # (Auto) WBC Differential Seg Neuts % (Manual) Band Neuts % (Manual) Lymphocytes % (Manual) Monocytes % (Manual) Eosinophils % (Manual) Basophils % (Manual) Metamyelocytes % (Man) Blast Cells % (Manual) Abs Neuts (Manual) Differential Comment Platelet Estimate Platelet Morphology PT INR APTT Sodium Potassium Chloride Carbon Dioxide Anion Gap BUN Creatinine Estimated GFR Random Glucose Lactic Acid 1.6 Calcium Magnesium Total Bilirubin AST ALT Alkaline Phosphatase Total Creatine Kinase Troponin I Total Protein Albumin TSH Urine Color Yellow Urine Clarity Clear Urine pH 6.0 Ur Specific Henry 1.006 Urine Protein Negative Urine Glucose (UA) Negative Urine Ketones Negative Urine Occult Blood Negative Urine Nitrate Negative Urine Bilirubin Negative Urine Urobilinogen Less than 2 Ur Leukocyte Esterase Negative Urine RBC Less than 1 Urine WBC 2 Ur Squamous Epith Cells 1 Urine Mucus Few H Micro UA Comment Culture not ind Ur Microscopic Review Not Reportable Urine Culture Comments Culture not ind Blood Type O Negative Antibody Screen Negative - Imaging Impressions Chest X-Ray 06/06/18 11:27 CONCLUSION: Bilateral upper lobe densities. Decreasing density in the right lung base. Assessment and Plan - Plan Mr. Cabral is a 72-year-old man with a history of high-grade myelodysplastic syndrome; RAEB-2 who had been on treatment with Dacogen under the care of Dr. Henri Mckeon of the [place] [facility]. Most recent cycle was delivered in April 2018, restaging bone marrow biopsy indicates interval decrease in bone marrow blast percentage after 3 cycles of Dacogen. Additional oncologic diagnoses include prostate carcinoma, bladder carcinoma and lung carcinoma. Patient was admitted to this facility about 2 weeks ago with high-grade fevers in the setting of neutropenia. He developed neutropenic sepsis requiring combination antibiotic therapy and also required a brief duration of growth factor support therapy with G-CSF. He was discharged from [facility] on . Patient tells me on 06/03/2018 he required red cell transfusion at [facility]. He comes in with generalized weakness fatigue, loss of appetite and malaise. Clearly he is failing to thrive. I have been asked to see him to help optimize management. Recommendations: 1. Myelodysplastic syndrome with resultant pancytopenia: At this time I would recommend supportive care, ultimately he will require resumption of systemic therapy with Dacogen to delay progression to acute myeloid leukemia and to help manage his cytopenias. His hemoglobin is 8.8 g/dL, recommend transfusion to maintain hemoglobin of over 7.5 g/dL. He does not require platelet transfusion at this time because he is not actively bleeding. 2. Recent pneumonia: It may be reasonable to resume IV antibiotic therapy, it is not clear whether he may be getting septic again, he does have low-grade fevers. Blood cultures have been drawn today, influenza nasal wash antigen was negative. 3. Transfer to the oncology unit for close inpatient monitoring. History of lung cancer, prostate cancer and bladder cancer: These have been previously treated based on PET/CT imaging performed in the summer 2017 his solid tumor oncologic diagnoses are in remission.
[2018-06-06] MEDS ORDERED: MOMETASONE FORMOTEROL INH SCH (19:00)
[2018-06-06] MEDS: Senna/Docusate Sodium 8.6/50 MG Tablet PO SCH (22:02)
[2018-06-07 06:51] LABS: Baso % (Auto) 1.1 % (0.0-2.0); Eos # (Auto) 0.1 th/mm3 (0.0-0.4); Eos % (Auto) 2.9 % (0.0-4.0); Hematocrit 25.1 % (39.0-51.0); Hemoglobin 8.5 gm/dL (13.0-17.0); Lymph # (Auto) 0.5 th/mm3 (1.0-4.8); Lymph % (Auto) 26.9 % (9.0-44.0); Mean Corpuscular HGB Conc 33.8 % (32.0-36.0); Mean Corpuscular Hemoglobin 27.7 pg (27.0-34.0); Mean Platelet Volume 8.1 fL (7.0-11.0); Mono # (Auto) 0.2 th/mm3 (0.0-0.9); Mono % (Auto) 10.1 % (0.0-8.0); Neut # (Auto) 1.1 th/mm3 (1.8-7.7); Red Blood Count 3.06 mil/mm3 (4.50-5.90); Red Cell Distribution Width 25.6 % (11.6-17.2); White Blood Count 1.8 th/mm3 (4.0-11.0)
[2018-06-07 07:01] LABS: Calcium 7.9 mg/dL (8.5-10.1); Carbon Dioxide 22.3 meq/L (21.0-32.0); Potassium 3.9 meq/L (3.5-5.1)
[2018-06-07 07:05] LABS: Troponin I 0.18 ng/mL (0.02-0.05); Vancomycin,Random 8.5 Comment
[2018-06-07 07:07] LABS: Platelet Count 16 th/mm3 (150-450)
[2018-06-07 08:57] LABS: Basophilic Stippling Moderate; Blast Cells 6 % (0-0); Eosinophils 8 % (0-4); Lymphocytes 21 % (9-44); Monocytes 3 % (0-8); Platelet Estimate Rare (Normal); Platelet Morphology Normal (Normal); Tallied Nucleated RBC 3 (0-0)
[2018-06-07 08:58] LABS: Ovalocytes 1+
[2018-06-07] MEDS: Senna/Docusate Sodium 8.6/50 MG Tablet PO SCH ×2 (10:22→22:17)
[2018-06-07] MEDS: Ferrous Sulfate 325 MG Tablet PO SCH (10:31)
--- NOTE | 2018-06-07 12:23 | P.PNIM ---
Subjective Interval history: In bed appears chronically ill. No fever or chills. feels a little improved. Very tired. Not much cough Physical Exam Vital signs: Vital Signs 06/06/18 15:49 06/06/18 20:00 06/06/18 23:55 Temperature 97.6 F 98.1 F Pulse Rate 91 H 99 H 97 H Respiratory Rate 20 18 18 Blood Pressure 113/56 L 115/62 103/54 L Pulse Oximetry 97 99 97 06/07/18 03:34 06/07/18 08:00 06/07/18 11:15 Temperature 98.6 F 99.4 F Pulse Rate 95 H 88 88 Respiratory Rate 18 20 20 Blood Pressure 110/49 L 98/51 L 98/50 L Pulse Oximetry 98 98 94 L Intake & Output 06/06/18 06/07/18 06/07/18 18:59 06:59 18:59 Intake Total 2350 / 2350 780 / 780 Output Total 1300 / 1300 Balance 2350 / 2350 -520 / -520 Weight 86.183 kg 81.4 kg Intake: IV 2350 / 2350 300 / 300 Maxipime Inj 2,000 MG In NS Inj 100 / 100 100 ML @ 200 mls/hr IV.SIG ONCE ONE Rx#:[id number] Zyvox 600 mg Premix 300 ML @ 300 / 300 300 mls/hr IV.SIG Q12H DILLON Rx#: [id number] NS Inj 1,000 ML @ Wide Open IV. 1999 SIG BOLUS ONE Rx#:[id number] Vancomycin Inj 1,000 MG In NS 250 / 250 Inj 250 ML @ 250 mls/hr IV.SIG ONCE ONE Rx#:[id number] Oral 480 / 480 Output: Urine 1300 / 1300 Other: Date of Last Bowel Movement 06/06/18 Narrative: GENERAL: Well-nourished well-developed ill-appearing elderly male appears in nad. CARDIOVASCULAR: Regular rate and rhythm. RESPIRATORY: No accessory muscle use. Few bilateral crackles, no wheezes, no rhonchi GASTROINTESTINAL: Abdomen soft, non-tender, nondistended. Normoactive bowel sounds MUSCULOSKELETAL: Extremities without clubbing, cyanosis, or edema. No obvious deformities. NEUROLOGICAL: Awake and alert person place and time. No obvious cranial nerve deficits. Motor grossly within normal limits. Five out of 5 muscle strength in the arms and legs. Normal speech. PSYCHIATRIC: Appropriate mood and affect; insight and judgment normal. Results Labs CBC & Chem 7: 06/07/18 05:00 06/07/18 05:00 Labs: Microbiology 06/06/18 12:04 Blood - Peripheral Aerobic Blood Culture - Preliminary No growth in 1 day 06/06/18 12:04 Blood - Peripheral Anaerobic Blood Culture - Preliminary No growth in 1 day 06/06/18 11:59 Blood - Peripheral Aerobic Blood Culture - Preliminary No growth in 1 day 06/06/18 11:59 Blood - Peripheral Anaerobic Blood Culture - Preliminary No growth in 1 day 06/06/18 12:10 Nasal Wash Influenza Types A,B Antigen - Final Negative for FLU A and B antigen Infection due to influenza A or B cannot be ruled out since the antigen present in the sample may be below the detection limit of the test. Assessment and Plan Plan 72-year-old male with history of 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 IV vancomycin given in the emergency room, will not continue due to acute kidney injury and will start IV Zyvox Acute kidney injury superimposed on chronic kidney disease stage IIlikely due to poor oral intake, organ dysfunction due to sepsis-IV fluid hydration, avoid nephrotoxins, hold home TIESHA inhibitor due to also superimposed hypotension Elevated troponin Ipatient has no complaint of chest pain this may be due to his acute kidney injury, will trend troponin I due to history of CAD and follow- up clinically. High-grade myelodysplastic syndromeconsult Dr. Purdy who had seen the patient during the previous hospitalization. Pancytopenia -worsening platelets likely due to sepsis and myelodysplastic syndrome, monitor, transfusions as needed Hyponatremia due to hypovolemianormal saline DO NOT RESUSCITATE status Physical therapy evaluation Discussed with the patient, nurse Progress Note: Quality VTE Deep Vein Thrombosis/Pulmonary Embolism Present on Admission: No
[2018-06-07] MEDS ORDERED: Vancomycin Inj 1,000 MG in Sodium Chlor 0.9% Inj 250 ML IV.SIG SCH (14:00)
--- NOTE | 2018-06-07 15:28 | P.DIET ---
Nutritional Evaluation Type of nutrition evaluation: initial Nutrition screening: Weight Loss > 10 lbs Objective - Diagnosis Pneumonia, DOM - Objective Body Mass Index: 27 [place] body weight: 67 kg (148lb) % IBW: 120 Body Weight Used for Calculations: Actual Energy Needs - Lower Range (kCal/kg): 25 Energy Needs - Upper Range (kCal/kg): 30 Lower Limit kCal/kg (kCals): 2,025 Upper Limit kCal/kg (kCals): 2,430 Lower Limit Protein Factor (Grams per Kg): 1.0 Upper Limit Protein Factor (Grams per Kg): 1.2 Lower Protein Needs (Protein): 81 Upper Protein Needs (Protein): 97 Dietitian Reviewed in Medical Record: Current diet, Curent medications, Intake & Output, Labs, Medical history Diet Order: Regular Oral Diet Intake Amount: Fair 50-75% Objective Comments: PMH; prostate, lung ca, HTN, CKD, CAD Labs; BUN 20, Cr 1.84, GFR 36 Medications; Ferusal Assessment Assessment: Weight loss screen; Pt presents to ED with weakness N/V/D and decreased appetite x2 days and is currently at nutritional risk r/t multiple cancer diagnoses and recent unplanned weight loss. Pt currently ordered for regular diet with 75% PO intake today, otherwise PO intake not yet established. Will send pt Ensure supplement BID in efforts to support PO intake and minimize further weight loss. Each can of ensure will provide 250kcal and 9g protein. Will continue to monitor PO intake, supplement acceptance and clinical course. Recommendations: 1. Ensure nutritional supplement BID 2. Monitor supplement acceptance Dietitian to Monitor: Lab values, Supplement acceptance, Weight change, PO Intake, Medical course
[2018-06-07] MEDS: Azithromycin Inj 250 MG in Sodium Chlor 0.9% Inj 250 ML IV.SIG SCH (16:43)
[2018-06-07] MEDS ORDERED: Loperamide 2 MG Capsule PO ONE (17:57)
--- NOTE | 2018-06-07 18:00 | P.PNONC ---
Subjective Interval history: Pt seen and examined, VS, labs, medications and microbiology reviewed. Patient reports feeling cold, reports diarrhea and reports feeling tired profoundly. He tells me he has no appetite. Blood cultures indicate gram-positive cocci in pairs and clusters noted on most recent update from microbiology lab. Objective Vital Signs/Intake & Output: Vital Signs 06/06/18 20:00 06/06/18 23:55 06/07/18 03:34 Temperature 97.6 F 98.1 F 98.6 F Pulse Rate 99 H 97 H 95 H Respiratory Rate 18 18 18 Blood Pressure 115/62 103/54 L 110/49 L Pulse Oximetry 99 97 98 06/07/18 08:00 06/07/18 11:15 06/07/18 16:00 Temperature 99.4 F 99.1 F Pulse Rate 88 88 97 H Respiratory Rate 20 20 20 Blood Pressure 98/51 L 98/50 L 114/50 L Pulse Oximetry 98 94 L 97 Intake & Output 06/06/18 06/07/18 06/07/18 18:59 06:59 18:59 Intake Total 2350 / 2350 780 / 780 550 / 550 Output Total 1300 / 1300 Balance 2350 / 2350 -520 / -520 550 / 550 Weight 86.183 kg 81.4 kg Intake: IV 2350 / 2350 300 / 300 550 / 550 Azithromycin Inj 250 MG In NS 250 / 250 Inj 250 ML @ 250 mls/hr IV.SIG Q24H [facility] Rx#:[id number] Maxipime Inj 2,000 MG In NS Inj 100 / 100 100 ML @ 200 mls/hr IV.SIG ONCE ONE Rx#:[id number] Zyvox 600 mg Premix 300 ML @ 300 / 300 300 / 300 300 mls/hr IV.SIG Q12H [facility] Rx#: [id number] NS Inj 1,000 ML @ Wide Open IV. 1999 SIG BOLUS ONE Rx#:[id number] Vancomycin Inj 1,000 MG In NS 250 / 250 Inj 250 ML @ 250 mls/hr IV.SIG ONCE ONE Rx#:[id number] Oral 480 / 480 Output: Urine 1300 / 1300 Other: Date of Last Bowel Movement 06/06/18 Result Diagrams: 06/07/18 05:00 06/07/18 05:00 Laboratory Results: Laboratory Results - last 24 hr 06/06/18 06/07/18 06/07/18 23:59 05:00 05:00 WBC 1.8 L RBC 3.06 L Hgb 8.5 L Hct 25.1 L MCV 82.0 MCH 27.7 MCHC 33.8 RDW 25.6 H Plt Count 16 L* D MPV 8.1 Prelim Diff (Auto) Slide review pending Neut % (Auto) 59.0 Lymph % (Auto) 26.9 [place] % (Auto) 10.1 H Eos % (Auto) 2.9 Baso % (Auto) 1.1 Neut # (Auto) 1.1 L Lymph # (Auto) 0.5 L [place] # (Auto) 0.2 Eos # (Auto) 0.1 Baso # (Auto) 0.0 WBC Differential Manual diff final Seg Neuts % (Manual) 43 Band Neuts % (Manual) 18 H Lymphocytes % (Manual) 21 Monocytes % (Manual) 3 Eosinophils % (Manual) 8 H Basophils % (Manual) 1 Blast Cells % (Manual) 6 H Abs Neuts (Manual) 1.1 L Nucleated RBCs/100 WBC 3 H Differential Comment . Platelet Estimate Rare L Platelet Morphology Normal Basophilic Stippling Moderate H Ovalocytes 1+ H Sodium 137 Potassium 3.9 Chloride 105 Carbon Dioxide 22.3 Anion Gap 10 BUN 20 H Creatinine 1.84 H Estimated GFR 36 L Random Glucose 86 Calcium 7.9 L Troponin I 0.23 H 0.18 H Random Vancomycin 8.5 Culture Results: Microbiology 06/06/18 12:04 Aerobic Blood Culture - Preliminary Blood - Peripheral No growth in 1 day Anaerobic Blood Culture - Preliminary No growth in 1 day 06/06/18 11:59 Aerobic Blood Culture - Preliminary Blood - Peripheral No growth in 1 day Anaerobic Blood Culture - Preliminary No growth in 1 day 06/06/18 12:10 Influenza Types A,B Antigen - Final Nasal Wash Negative for FLU A and B antigen Infection due to influenza A or B cannot be ruled out since the antigen present in the sample may be below the detection limit of the test. Medications: Active Medications Generic Name Dose Route Start Last Admin Trade Name Freq PRN Reason Stop Dose Admin Atorvastatin Calcium 40 mg 06/07/18 09:00 06/07/18 10:22 Lipitor PO 40 mg DAILY [facility] Administration Ferrous Sulfate 325 mg 06/07/18 09:00 06/07/18 10:31 Ferosul PO 325 mg DAILY [facility] Administration Azithromycin 250 mg/ Sodium 250 mls @ 250 mls/hr 06/06/18 16:00 06/07/18 16: 43 Chloride IV.SIG 250 mls/hr Q24H [facility] Administration Cefepime HCl 2,000 mg/ Sodium 100 mls @ 200 mls/hr 06/07/18 02:00 06/07/18 16 :55 Chloride IV.SIG 200 mls/hr Q12H [facility] Administration Sodium Chloride 1,000 mls @ 100 mls/hr 06/06/18 14:15 06/06/18 18:01 Ns Inj IV.CONT 100 mls/hr .Q10H [facility] Administration Linezolid 300 mls @ 300 mls/hr 06/06/18 18:00 06/07/18 14:30 Zyvox 600 Mg Premix IV.SIG Infused Q12H [facility] Infusion Metoprolol Succinate 25 mg 06/07/18 09:00 06/07/18 10:32 Toprol Xl PO 25 mg DAILY [facility] Administration Senna/Docusate Sodium 1 tab 06/06/18 21:00 06/07/18 10:22 Ольга-Colace PO 1 tab BID [facility] Administration Sodium Chloride 2 ml 06/06/18 11:27 06/07/18 16:44 Ns Flush IV.FLUSH 2 ml PRN PRN Administration FLUSH AFTER USING IV ACCESS Sodium Chloride 2 ml 06/06/18 21:00 06/07/18 10:33 Ns Flush IV.FLUSH 2 ml BID [facility] Administration Objective Remarks: General physical appearance: Elderly male, laying in bed, appears to be chronically ill, pale, and fatigue. HEENT: Head atraumatic no cephalic, conjunctivae pale, sclerae anicteric, oral exam dry mucous membranes. Neck exam: No palpable cervical or supraclavicular adenopathy. Respiratory exam: Good air movement bilaterally over the upper and middle lung zones, poor inspiratory effort, decreased bibasilar breath sounds. No rhonchi, rales or wheezes. Cardiovascular: Regular rate and rhythm, S1-S2 systolic murmur. Abdominal exam: Protuberant, soft, no obvious tenderness, no obvious organ enlargement specifically hepatosplenomegaly. Lower tremors: No pretibial edema no calf tenderness. Muscular skeletal: Generally decreased muscle mass. ASTROBIOLOGIST: Moves all 4 limbs spontaneously. Psychiatric: Awake, alert and oriented. Assessment/Plan - Plan Mr. Cabral is a 72-year-old man with a history of high-grade myelodysplastic syndrome; RAEB-2 who had been on treatment with Dacogen under the care of Dr. Henri Mckeon of the [place] [facility]. Most recent cycle was delivered in April 2018, restaging bone marrow biopsy indicates interval decrease in bone marrow blast percentage after 3 cycles of Dacogen. Additional oncologic diagnoses include prostate carcinoma, bladder carcinoma and lung carcinoma. Patient was admitted to this facility about 2 weeks ago with high-grade fevers in the setting of neutropenia. He developed neutropenic sepsis requiring combination antibiotic therapy and also required a brief duration of growth factor support therapy with G-CSF. He was discharged from [facility] on . Patient tells me on 06/03/2018 he required red cell transfusion at [facility]. He comes in with generalized weakness fatigue, loss of appetite and malaise. Clearly he is failing to thrive. I have been asked to see him to help optimize management. Recommendations: 1. Myelodysplastic syndrome with resultant pancytopenia: Continue supportive care, previously received Dacogen x3 cycles. He remains cytopenic, supportive transfusions to maintain hemoglobin above 7.5 g/dL and platelet transfusion to maintain platelet count over 15,000/mcL. At previous visit I did treat him briefly with Neupogen for growth factor support for severe neutropenia. Should be noted that his most recent bone marrow biopsy from April 2018 revealed approximately 10% myeloblasts in the bone marrow. This represents a moderate reduction in absolute blast percentage which prior to initiation of Dacogen in the fall 2017 was noted to be closer to 17%. 2. Bacteremia in the setting of leukopenia/neutropenia: Vancomycin added to Linezolid pending.. ID consultation 3. Diarrhea: Stool for C. difficile PCR ordered. I would advise initiating on oral vancomycin if this is positive. History of lung cancer, prostate cancer and bladder cancer: These have been previously treated based on PET/CT imaging performed in the summer 2017 his solid tumor oncologic diagnoses are in remission.
--- NOTE | 2018-06-07 18:08 | P.CONID ---
History of Present Illness Service: ID Consult date: 06/07/18 Requesting Physician: Eder Purdy Reason for Consult: MDS, pneumonia Primary Care Provider: Vadim Myrick MD Chief Complaint: Feeling weak, fevers and chills. History of Present Illness: 72 yo male with non small lung cancer known to me from previous hospitalisation He is poor historian and not interested in answering questions History was mainly obtained from the chart Pt has a history of multiple cancers, includin. In January 2018 he was diagnosed with high-grade myelodysplastic syndrome; RAEB-2 with close to 20% blasts on bone marrow on cytologic review. He was initiated on systemic chemotherapy with Dacogen in January and has thus far received 3 cycles; day 1-5 of a 28-day cycle. Per his he is scheduled to resume treatment next week (under the care of Dr. Mckeon of [place] [facility]). 2. 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 3. In 2017 he was diagnosed with a left-sided lung carcinoma which was treated with SB RT while he was still living in [place], [place]. 4. In 2005 or 2006 the patient was diagnosed with carcinoma of the prostate, he underwent prostatectomy. In 2011 he was found to have relapsed within the bladder and underwent external beam radiation therapy (in [place]). Pt presented to [facility] emergency department with complaints of generalized weakness and fatigue. He was recently discharged from this facility on 05/29/2018 after having spent 5 days in the hospital including 2 days in the critical care unit. He at that time was treated for neutropenic sepsis and pneumonia. On presentation he was pancytopenic, his neutrophil count was noted to be 1200, hemoglobin 8.8 g/dL and platelet count of 23,000 per microliter. The patient noted to have a low-grade temp of 99.8 F, chest x-ray revealed improvement in consolidative changes involving the right lower lobe. On CXR he has b/l upper lobes infiltrates blood clx no growth @ 1 day flu AG is negative T max was 99.8 CT showed posterior right upper lobe consolidative mass which is similar to prior, pleural-based mass in the posterior lateral right lower lung which was not noted previously. Nodular infiltrate in the posterior mid left upper lobe which was similar on the previous exam. Additional areas of focal nodular density elsewhere in the left lung, some of which are new. Patchy interstitial thickening Pt was started on Azithromycin + Cefepime+Linezolid Pt c/o diarrhea Review of Systems All other systems reviewed negative except as stated in HPI PMFSH - History History Provided By: Patient - Medical History Medical History: Medical History (Last Reviewed 06/07/18 @ 18:03 by Sherrell Corona MD) Anemia CAD (coronary artery disease) Carcinoma of prostate Chronic kidney disease Deep vein thrombosis (DVT) of right lower extremity GERD (gastroesophageal reflux disease) HTN (hypertension) Hyperlipemia Myelodysplastic syndrome Non-small cell carcinoma of left lung PVD (peripheral vascular disease) Presence of IVC filter Thrombocytopenia Vitamin D deficiency - Surgical History Surgical History: Surgical History (Last Reviewed 06/07/18 @ 18:03 by Sherrell Corona MD) H/O heart artery stent History of prostate surgery S/P lobectomy of lung S/P right coronary artery (RCA) stent placement - Family History Family History: Family History (Last Reviewed 06/07/18 @ 18:03 by Sherrell Corona MD) Other Family history normal - Social History I have reviewed the patient's Social History: Yes - Tobacco History Second Hand Smoke Exposure: No Smoking Status: Former smoker - Alcohol History How Often Do You Have a Drink Containing Alcohol: Never - Substance Use History Substance History: No History of Abuse - Travel History Recent Travel in the [place] Within the Last 8 Weeks: No Recent Travel Out of the Country Within the Last 8 Weeks: No - Immunization History Tetanus Immunization: Unsure Medications and Allergies Active Medications: Active Medications Acetaminophen (Tylenol) 650 mg PO Q4H PRN PRN Reason: Temp > 100.4 Al Hydroxide/Mg Hydroxide (Milk Of Niranjan Liq) 30 ml PO Q12H PRN PRN Reason: Mild Constipation Albuterol (Duoneb Neb (Prn)) 1 ampul NEB Q4HR NEB PRN PRN Reason: SHORTNESS OF BREATH Atorvastatin Calcium (Lipitor) 40 mg PO DAILY [facility] Last Admin: 06/07/18 10:22 Dose: 40 mg Bisacodyl (Dulcolax Supp) 10 mg RECTAL DAILY PRN PRN Reason: SEVERE CONSITIPATION Ferrous Sulfate (Ferosul) 325 mg PO DAILY [facility] Last Admin: 06/07/18 10:31 Dose: 325 mg Guaifenesin/Dextromethorphan (Robitussin Dm Liq) 10 ml PO Q4H PRN PRN Reason: COUGH Azithromycin 250 mg/ Sodium (Chloride) 250 mls @ 250 mls/hr IV.SIG Q24H [facility] Last Admin: 06/07/18 16:43 Dose: 250 mls/hr Cefepime HCl 2,000 mg/ Sodium (Chloride) 100 mls @ 200 mls/hr IV.SIG Q12H [facility] Last Admin: 06/07/18 16:55 Dose: 200 mls/hr Sodium Chloride (Ns Inj) 1,000 mls @ 100 mls/hr IV.CONT .Q10H [facility] Last Admin: 06/06/18 18:01 Dose: 100 mls/hr Linezolid (Zyvox 600 Mg Premix) 300 mls @ 300 mls/hr IV.SIG Q12H [facility] Last Infusion: 06/07/18 14:30 Dose: Infused Lactulose (Lactulose Liq) 30 ml PO DAILY PRN PRN Reason: SEVERE CONSITIPATION Metoprolol Succinate (Toprol Xl) 25 mg PO DAILY [facility] Last Admin: 06/07/18 10:32 Dose: 25 mg Ondansetron HCl (Zofran Inj) 4 mg IV.PUSH Q6H PRN PRN Reason: NAUSEA OR VOMITING Patient Own Medication: Mometasone- Formoterol [Dulera] 2 Puff 0 each INH Q12H [facility] Pharmacy Profile Note ([facility]) 1 each OTHER UNSCH PRN PRN Reason: PHARMACY DOCUMENTATION Senna/Docusate Sodium (Ольга-Colace) 1 tab PO BID [facility] Last Admin: 06/07/18 10:22 Dose: 1 tab Sennosides (Senokot) 17.2 mg PO Q12H PRN PRN Reason: Moderate Constipation Sodium Chloride (Ns Flush) 2 ml IV.FLUSH PRN PRN PRN Reason: FLUSH AFTER USING IV ACCESS Last Admin: 06/07/18 16:44 Dose: 2 ml Sodium Chloride (Ns Flush) 2 ml IV.FLUSH BID [facility] Last Admin: 06/07/18 10:33 Dose: 2 ml Sodium Chloride (Ns Flush) 2 ml IV.FLUSH PRN PRN PRN Reason: FLUSH AFTER USING IV ACCESS Allergies Allergy/AdvReac Type Severity Reaction Status Date / Time No Known Allergies Allergy Verified 06/06/18 14:51 Home Medications Medication Instructions Recorded Confirmed Type amlodipine 10 mg PO DAILY 01/16/18 06/06/18 History atorvastatin 40 mg PO DAILY 01/16/18 06/06/18 History benazepril 40 mg PO DAILY 01/16/18 06/06/18 History cholecalciferol (vitamin D3) 5,000 unit PO DAILY 01/16/18 06/06/18 History [Vitamin D3] cyanocobalamin (vitamin B-12) 5,000 mcg SUBLINGUAL DAILY 01/16/18 06/06/18 History [Vitamin B-12] ferrous sulfate 325 mg PO DAILY 01/16/18 06/06/18 History hydrochlorothiazide 25 mg PO DAILY 01/16/18 06/06/18 History metoprolol succinate 100 mg PO DAILY 01/16/18 06/06/18 History mometasone-formoterol [Dulera] 2 puff INHALATION Q12H 01/16/18 06/06/18 History niacin 1,000 mg PO DAILY 01/16/18 06/06/18 History Exam Vital signs: Vital Signs 06/06/18 20:00 06/06/18 23:55 06/07/18 03:34 Temperature 97.6 F 98.1 F 98.6 F Pulse Rate 99 H 97 H 95 H Respiratory Rate 18 18 18 Blood Pressure 115/62 103/54 L 110/49 L Pulse Oximetry 99 97 98 06/07/18 08:00 06/07/18 11:15 06/07/18 16:00 Temperature 99.4 F 99.1 F Pulse Rate 88 88 97 H Respiratory Rate 20 20 20 Blood Pressure 98/51 L 98/50 L 114/50 L Pulse Oximetry 98 94 L 97 Intake & Output 06/06/18 06/07/18 06/07/18 18:59 06:59 18:59 Intake Total 2350 / 2350 780 / 780 550 / 550 Output Total 1300 / 1300 Balance 2350 / 2350 -520 / -520 550 / 550 Weight 86.183 kg 81.4 kg Intake: IV 2350 / 2350 300 / 300 550 / 550 Azithromycin Inj 250 MG In NS 250 / 250 Inj 250 ML @ 250 mls/hr IV.SIG Q24H [facility] Rx#:[id number] Maxipime Inj 2,000 MG In NS Inj 100 / 100 100 ML @ 200 mls/hr IV.SIG ONCE ONE Rx#:[id number] Zyvox 600 mg Premix 300 ML @ 300 / 300 300 / 300 300 mls/hr IV.SIG Q12H [facility] Rx#: [id number] NS Inj 1,000 ML @ Wide Open IV. 1999 / 1999 SIG BOLUS ONE Rx#:[id number] Vancomycin Inj 1,000 MG In NS 250 / 250 Inj 250 ML @ 250 mls/hr IV.SIG ONCE ONE Rx#:[id number] Oral 480 / 480 Output: Urine 1300 / 1300 Other: Date of Last Bowel Movement 06/06/18 - Constitutional no acute distress, average body habitus - Routine HEENT Exam Head: Present: normocephalic, atraumatic Eye: Present: EOMI, PERRL ENT: Present: mucous membranes moist, oropharynx clear - Routine Neck Exam Present: supple. Absent: JVD, lymphadenopathy - Routine Respiratory Exam Present: CTA bilaterally. Absent: accessory muscle use, respiratory distress - Routine Cardiovascular Exam Present: RRR, S1, S2. Absent: murmur, gallop, rubs - Routine Abdominal Exam Present: soft, normoactive bowel sounds. Absent: tenderness, distended, organomegaly, mass - Routine Extremities Exam Absent: cyanosis, clubbing, edema - Routine Skin Exam Present: dry, warm. Absent: rash - Routine Neurological Exam Present: alert, oriented X3, CN II-XII intact. Absent: sensory deficit, motor deficit - Routine Psychiatric Exam Present: normal affect, cooperative Results - Labs CBC & Chem 7: 06/07/18 05:00 06/07/18 05:00 Labs: Laboratory Results - last 24 hr 06/06/18 06/07/18 06/07/18 23:59 05:00 05:00 WBC 1.8 L RBC 3.06 L Hgb 8.5 L Hct 25.1 L MCV 82.0 MCH 27.7 MCHC 33.8 RDW 25.6 H Plt Count 16 L* D MPV 8.1 Prelim Diff (Auto) Slide review pending Neut % (Auto) 59.0 Lymph % (Auto) 26.9 [place] % (Auto) 10.1 H Eos % (Auto) 2.9 Baso % (Auto) 1.1 Neut # (Auto) 1.1 L Lymph # (Auto) 0.5 L [place] # (Auto) 0.2 Eos # (Auto) 0.1 Baso # (Auto) 0.0 WBC Differential Manual diff final Seg Neuts % (Manual) 43 Band Neuts % (Manual) 18 H Lymphocytes % (Manual) 21 Monocytes % (Manual) 3 Eosinophils % (Manual) 8 H Basophils % (Manual) 1 Blast Cells % (Manual) 6 H Abs Neuts (Manual) 1.1 L Nucleated RBCs/100 WBC 3 H Differential Comment . Platelet Estimate Rare L Platelet Morphology Normal Basophilic Stippling Moderate H Ovalocytes 1+ H Sodium 137 Potassium 3.9 Chloride 105 Carbon Dioxide 22.3 Anion Gap 10 BUN 20 H Creatinine 1.84 H Estimated GFR 36 L Random Glucose 86 Calcium 7.9 L Troponin I 0.23 H 0.18 H Random Vancomycin 8.5 - Imaging ITS Impressions Chest X-Ray 06/06/18 11:27 CONCLUSION: Bilateral upper lobe densities. Decreasing density in the right lung base. Assessment and Plan - Plan Myelodysplastic syndrome with resultant pancytopenia: Continue supportive care, previously received Dacogen x3 cycles. He remains cytopenic, supportive transfusions to maintain hemoglobin above 7.5 g/dL and platelet transfusion to maintain platelet count over 15,000/mcL. At previous visit I did treat him briefly with Neupogen for growth factor support for severe neutropenia. Should be noted that his most recent bone marrow biopsy from April 2018 revealed approximately 10% myeloblasts in the bone marrow. This represents a moderate reduction in absolute blast percentage which prior to initiation of Dacogen in the fall 2017 was noted to be closer to 17%. Pneumonia: PET scan fro October and chest CTA from 05/24 were dw radiologist: atypical PNA vs malignancy Diarrhea: Stool for C. difficile PCR ordered. I would advise initiating on oral vancomycin if this is positive. History of lung cancer, prostate cancer and bladder cancer: These have been previously treated based on PET/CT imaging performed in the summer 2017 his solid tumor oncologic diagnoses are in remission. sputum clx cont cefepime cont azithromycin cont Vancomycin dc Linezolid 2/2 its contributing to neutropenia ro C.diff
[2018-06-07] MEDS ORDERED: Vancomycin Consult Pharmacy OTHER PRN (18:40)
[2018-06-07] MEDS ORDERED: Vancomycin Inj 1,500 MG in Sodium Chlor 0.9% Inj 500 ML IV.SIG ONE (21:00)
[2018-06-07] MEDS: Sod Chloride 0.9% Inj 1,000 ML IV.CONT SCH ×2 (22:25→22:26)
[2018-06-08 06:56] LABS: Vancomycin,Random 21.4 Comment
--- NOTE | 2018-06-08 09:55 | P.PNONC ---
Subjective Interval history: T-max 99.9 Patient desperately wants to go home Denies bleeding Denies shortness of breath No other acute complaints Objective Vital Signs/Intake & Output: Vital Signs 06/07/18 11:15 06/07/18 16:00 06/07/18 20:36 Temperature 99.1 F 99.7 F H Pulse Rate 88 97 H 87 Respiratory Rate 20 20 20 Blood Pressure 98/50 L 114/50 L 123/59 L Pulse Oximetry 94 L 97 97 06/08/18 00:00 06/08/18 05:56 Temperature 99 F 99.9 F H Pulse Rate 93 H 87 Respiratory Rate 18 18 Blood Pressure 117/57 L 117/58 L Pulse Oximetry 96 95 Intake & Output 06/07/18 06/08/18 06/08/18 18:59 06:59 18:59 Intake Total 1383 / 1383 3585 / 3585 Output Total 1050 / 1050 3075 / 3075 Balance 333 / 333 510 / 510 Weight 196 lb 3.382 oz Intake: IV 550 / 550 1965 / 1965 NS Inj 1,000 ML @ 100 mls/hr IV 1000 / 1000 .CONT .Q10H [facility] Rx#:[id number] Azithromycin Inj 250 MG In NS 250 / 250 250 / 250 Inj 250 ML @ 250 mls/hr IV.SIG Q24H [facility] Rx#:[id number] Maxipime Inj 2,000 MG In NS Inj 200 / 200 100 ML @ 200 mls/hr IV.SIG Q12H [facility] Rx#:[id number] Zyvox 600 mg Premix 300 ML @ 300 / 300 300 mls/hr IV.SIG Q12H [facility] Rx#: [id number] Vancomycin Inj 1,500 MG In NS 515 / 515 Inj 500 ML @ 250 mls/hr IV.SIG ONCE ONE Rx#:[id number] Oral 833 / 833 1620 / 1620 Output: Urine 1050 / 1050 3075 / 3075 Other: Date of Last Bowel Movement 06/07/18 06/07/18 # Bowel Movements 4 Result Diagrams: 06/08/18 11:14 06/08/18 05:56 Laboratory Results: Laboratory Results - last 24 hr 06/08/18 05:56 Creatinine 1.56 H Estimated GFR 44 L Random Vancomycin 21.4 Culture Results: Microbiology 06/06/18 12:04 Aerobic Blood Culture - Preliminary Blood - Peripheral No growth in 1 day Anaerobic Blood Culture - Preliminary No growth in 1 day 06/06/18 11:59 Aerobic Blood Culture - Preliminary Blood - Peripheral No growth in 1 day Anaerobic Blood Culture - Preliminary No growth in 1 day 06/06/18 12:10 Influenza Types A,B Antigen - Final Nasal Wash Negative for FLU A and B antigen Infection due to influenza A or B cannot be ruled out since the antigen present in the sample may be below the detection limit of the test. Medications: Active Medications Generic Name Dose Route Start Last Admin Trade Name Freq PRN Reason Stop Dose Admin Atorvastatin Calcium 40 mg 06/07/18 09:00 06/07/18 10:22 Lipitor PO 40 mg DAILY [facility] Administration Ferrous Sulfate 325 mg 06/07/18 09:00 06/07/18 10:31 Ferosul PO 325 mg DAILY [facility] Administration Azithromycin 250 mg/ Sodium 250 mls @ 250 mls/hr 06/06/18 16:00 06/07/18 19: 41 Chloride IV.SIG Infused Q24H [facility] Infusion Cefepime HCl 2,000 mg/ Sodium 100 mls @ 200 mls/hr 06/07/18 02:00 06/08/18 02 :08 Chloride IV.SIG Infused Q12H [facility] Sodium Chloride 1,000 mls @ 100 mls/hr 06/06/18 14:15 06/07/18 22:26 Ns Inj IV.CONT Not Given .Q10H [facility] Metoprolol Succinate 25 mg 06/07/18 09:00 06/07/18 10:32 Toprol Xl PO 25 mg DAILY [facility] Administration Senna/Docusate Sodium 1 tab 06/06/18 21:00 06/07/18 22:17 Ольга-Colace PO Not Given BID [facility] Sodium Chloride 2 ml 06/06/18 21:00 06/07/18 22:17 Ns Flush IV.FLUSH Not Given BID [facility] Objective Remarks: GENERAL: Older male sitting on side of bed in no acute distress SKIN: Warm and dry. HEAD: Normocephalic. EYES: No scleral icterus. No injection or drainage. NECK: Supple, trachea midline. No JVD or lymphadenopathy. CARDIOVASCULAR: Regular rate and rhythm without murmurs. RESPIRATORY: Clear posteriorly. Breathing unlabored at rest. GASTROINTESTINAL: Abdomen soft, non-tender, nondistended. EXTREMITIES: No cyanosis, or edema. MUSCULOSKELETAL: Adequate muscle tone. NEUROLOGICAL: No obvious focal deficit. Awake, alert, and oriented x3. Assessment/Plan - Plan 1. Patient is a pleasant 72-year-old male with history of high-grade myelodysplastic syndrome. His most recent cycle of Dacogen was given under the care of Dr. Mckeon in April 2018. He was admitted 2 weeks ago with high- grade fever in the setting of neutropenia and was eventually discharged. He has come back with what appears to be failure to thrive. He desperately wants to go home. His CBC is pending today. 2. It does not appear that he has had anything more than low-grade fevers since his current admission. He is currently on azithromycin and cefepime per infectious disease. Continue to monitor CBC and transfuse to keep hemoglobin greater than 7.5 and platelet count greater than 15,000. Once he is medically stable he can be discharged with recommendations from infectious disease back to Dr. Mckeon for further management of his oncological diagnoses. For now we will continue supportive care. - Attending Statement The exam, history, and the medical decision-making described in the above note were completed with the assistance of the mid-level provider. I reviewed and agree with the findings presented. I attest that I had a [id number] encounter with the patient on the same day, and personally performed and documented my assessment and findings in the medical record. When I walked in the room he looked puny, weak and had nausea and vomiting. He will be given Zofran presently. In reviewing his course it would not surprise me if there is something beyond the myelodysplastic syndrome and the side effects of the decitabine. He is terribly puny and has had 2 lung cancers. I am told that he had a PET scan in the recent past. If this is not the case one might look for recurrent lung cancer given his progressive debilitation which is not completely explained by the decitabine and myelodysplastic syndrome.
--- NOTE | 2018-06-08 10:19 | P.PNIM ---
Subjective Interval history: The patient is in bed with flat affect. Says he does not have any pain at this time. No fever or chills. No nausea vomiting no diarrhea constipation. He is not eating much has no appetite. Physical Exam Vital signs: Vital Signs 06/07/18 11:15 06/07/18 16:00 06/07/18 20:36 Temperature 99.1 F 99.7 F H Pulse Rate 88 97 H 87 Respiratory Rate 20 20 20 Blood Pressure 98/50 L 114/50 L 123/59 L Pulse Oximetry 94 L 97 97 06/08/18 00:00 06/08/18 05:56 06/08/18 09:50 Temperature 99 F 99.9 F H 98.9 F Pulse Rate 93 H 87 85 Respiratory Rate 18 18 20 Blood Pressure 117/57 L 117/58 L 125/58 L Pulse Oximetry 96 95 97 Intake & Output 06/07/18 06/08/18 06/08/18 18:59 06:59 18:59 Intake Total 1383 / 1383 3585 / 3585 Output Total 1050 / 1050 3075 / 3075 Balance 333 / 333 510 / 510 Weight 89 kg Intake: IV 550 / 550 1965 / 1965 NS Inj 1,000 ML @ 100 mls/hr IV 1000 / 1000 .CONT .Q10H [facility] Rx#:[id number] Azithromycin Inj 250 MG In NS 250 / 250 250 / 250 Inj 250 ML @ 250 mls/hr IV.SIG Q24H [facility] Rx#:[id number] Maxipime Inj 2,000 MG In NS Inj 200 / 200 100 ML @ 200 mls/hr IV.SIG Q12H [facility] Rx#:[id number] Zyvox 600 mg Premix 300 ML @ 300 / 300 300 mls/hr IV.SIG Q12H [facility] Rx#: [id number] Vancomycin Inj 1,500 MG In NS 515 / 515 Inj 500 ML @ 250 mls/hr IV.SIG ONCE ONE Rx#:[id number] Oral 833 / 833 1620 / 1620 Output: Urine 1050 / 1050 3075 / 3075 Other: Date of Last Bowel Movement 06/07/18 06/07/18 # Bowel Movements 4 Narrative: GENERAL: Well-nourished well-developed ill-appearing elderly male appears in nad. CARDIOVASCULAR: Regular rate and rhythm. RESPIRATORY: No accessory muscle use. Few bilateral crackles, no wheezes, no rhonchi GASTROINTESTINAL: Abdomen soft, non-tender, nondistended. Normoactive bowel sounds MUSCULOSKELETAL: Extremities without clubbing, cyanosis, or edema. No obvious deformities. NEUROLOGICAL: Awake and alert person place and time. No obvious cranial nerve deficits. Motor grossly within normal limits. Five out of 5 muscle strength in the arms and legs. Normal speech. PSYCHIATRIC: Flat affect. 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 Sepsis resolving Follow-up with blood cultures, UA unremarkable Due to recent hospitalization and course of antibiotics, will consult infectious disease for further recommendations IV cefepime, azithromycin, IV vancomycin given in the emergency room, will not continue due to acute kidney injury and will start IV Zyvox Acute kidney injury superimposed on chronic kidney disease stage IIlikely due to poor oral intake, organ dysfunction due to sepsis-IV fluid hydration, avoid nephrotoxins, hold home TIESHA inhibitor due to also superimposed hypotension Elevated troponin Ipatient has no complaint of chest pain this may be due to his acute kidney injury, will trend troponin I due to history of CAD and follow- up clinically. High-grade myelodysplastic syndromeconsult Dr. Purdy who had seen the patient during the previous hospitalization. Pancytopenia -worsening platelets likely due to sepsis and myelodysplastic syndrome, monitor, transfusions as needed, if platelets less than 15 K. Transfuse if hemoglobin drops less than 7.5 per oncology recommendation Hyponatremia due to hypovolemianormal saline DO NOT RESUSCITATE status Physical therapy evaluation Discussed with the patient, nurse, family, Dr. Corona infectious disease Discharge plan: Discharge when improved and cleared by infectious disease patient still on IV antibiotics. Patient to follow-up with he is oncology Dr. Mckeon as outpatient. Progress Note: Quality VTE Deep Vein Thrombosis/Pulmonary Embolism Present on Admission: No
[2018-06-08 11:47] LABS: Baso % (Auto) 0.5 % (0.0-2.0); Eos # (Auto) 0.1 th/mm3 (0.0-0.4); Hematocrit 28.5 % (39.0-51.0); Hemoglobin 9.5 gm/dL (13.0-17.0); Lymph # (Auto) 0.8 th/mm3 (1.0-4.8); Lymph % (Auto) 34.2 % (9.0-44.0); Mean Corpuscular HGB Conc 33.3 % (32.0-36.0); Mean Corpuscular Hemoglobin 28.1 pg (27.0-34.0); Mean Corpuscular Volume 84.6 fL (80.0-100.0); Mean Platelet Volume 8.2 fL (7.0-11.0); Mono # (Auto) 0.2 th/mm3 (0.0-0.9); Mono % (Auto) 7.5 % (0.0-8.0); Neut # (Auto) 1.2 th/mm3 (1.8-7.7); Neut % (Auto) 52.8 % (16.0-70.0); Platelet Count 21 th/mm3 (150-450); Red Blood Count 3.37 mil/mm3 (4.50-5.90); Red Cell Distribution Width 25.8 % (11.6-17.2); White Blood Count 2.3 th/mm3 (4.0-11.0)
[2018-06-08 12:15] LABS: Blast Cells 4 % (0-0); Dimorphic RBC Present; Eosinophils 7 % (0-4); Lymphocytes 24 % (9-44); Monocytes 2 % (0-8); Platelet Morphology Normal (Normal)
[2018-06-08 12:16] LABS: Acanthocytes Occ
[2018-06-08] MEDS: Senna/Docusate Sodium 8.6/50 MG Tablet PO SCH ×2 (14:28→21:35)
[2018-06-08] MEDS: Ferrous Sulfate 325 MG Tablet PO SCH (14:28)
--- NOTE | 2018-06-08 14:41 | P.PNID ---
Subjective Allergies/Adverse Reactions: Allergies No Known Allergies Allergy (Verified 06/06/18 14:51) Objective Vital Signs 06/07/18 16:00 06/07/18 20:36 06/08/18 00:00 Temperature 99.1 F 99.7 F H 99 F Pulse Rate 97 H 87 93 H Respiratory Rate 20 20 18 Blood Pressure 114/50 L 123/59 L 117/57 L Pulse Oximetry 97 97 96 06/08/18 05:56 06/08/18 09:50 Temperature 99.9 F H 98.9 F Pulse Rate 87 85 Respiratory Rate 18 20 Blood Pressure 117/58 L 125/58 L Pulse Oximetry 95 97 Intake & Output 06/07/18 06/08/18 06/08/18 18:59 06:59 18:59 Intake Total 1383 / 1383 3585 / 3585 1000 / 1000 Output Total 1050 / 1050 3075 / 3075 Balance 333 / 333 510 / 510 1000 / 1000 Weight 89 kg Intake: IV 550 / 550 1965 / 1965 1000 / 1000 NS Inj 1,000 ML @ 100 mls/hr IV 1000 / 1000 1000 / 1000 .CONT .Q10H [facility] Rx#:[id number] Azithromycin Inj 250 MG In NS 250 / 250 250 / 250 Inj 250 ML @ 250 mls/hr IV.SIG Q24H [facility] Rx#:[id number] Maxipime Inj 2,000 MG In NS Inj 200 / 200 100 ML @ 200 mls/hr IV.SIG Q12H [facility] Rx#:[id number] Zyvox 600 mg Premix 300 ML @ 300 / 300 300 mls/hr IV.SIG Q12H [facility] Rx#: [id number] Vancomycin Inj 1,500 MG In NS 515 / 515 Inj 500 ML @ 250 mls/hr IV.SIG ONCE ONE Rx#:[id number] Oral 833 / 833 1620 / 1620 Output: Urine 1050 / 1050 3075 / 3075 Other: Date of Last Bowel Movement 06/07/18 06/07/18 # Bowel Movements 4 06/06/18 12:04 Blood - Peripheral Aerobic Blood Culture - Preliminary No growth in 2 days 06/06/18 12:04 Blood - Peripheral Anaerobic Blood Culture - Preliminary No growth in 2 days 06/06/18 11:59 Blood - Peripheral Aerobic Blood Culture - Preliminary No growth in 2 days 06/06/18 11:59 Blood - Peripheral Anaerobic Blood Culture - Preliminary No growth in 2 days 06/06/18 12:10 Nasal Wash Influenza Types A,B Antigen - Final Negative for FLU A and B antigen Infection due to influenza A or B cannot be ruled out since the antigen present in the sample may be below the detection limit of the test. Lab - Hematology Results 06/07/18 06/08/18 05:00 11:14 WBC 1.8 L 2.3 L RBC 3.06 L 3.37 L Hgb 8.5 L 9.5 L Hct 25.1 L 28.5 L MCV 82.0 84.6 MCH 27.7 28.1 MCHC 33.8 33.3 RDW 25.6 H 25.8 H Plt Count 16 L* D 21 L D MPV 8.1 8.2 Prelim Diff (Auto) Slide review pending Slide review pending Neut % (Auto) 59.0 52.8 Lymph % (Auto) 26.9 34.2 [place] % (Auto) 10.1 H 7.5 Eos % (Auto) 2.9 5.0 H Baso % (Auto) 1.1 0.5 Neut # (Auto) 1.1 L 1.2 L Lymph # (Auto) 0.5 L 0.8 L [place] # (Auto) 0.2 0.2 Eos # (Auto) 0.1 0.1 Baso # (Auto) 0.0 0.0 WBC Differential Manual diff final Manual diff final Seg Neuts % (Manual) 43 51 Band Neuts % (Manual) 18 H 11 H Lymphocytes % (Manual) 21 24 Monocytes % (Manual) 3 2 Eosinophils % (Manual) 8 H 7 H Basophils % (Manual) 1 1 Blast Cells % (Manual) 6 H 4 H Abs Neuts (Manual) 1.1 L 1.4 L Nucleated RBCs/100 WBC 3 H Differential Comment . . Platelet Estimate Rare L Low L Platelet Morphology Normal Normal Dimorphic RBCs Present H Basophilic Stippling Moderate H Ovalocytes 1+ H Acanthocytes (Spur) Occ H Lab - Chemistry Results 06/06/18 06/07/18 06/08/18 23:59 05:00 05:56 Sodium 137 Potassium 3.9 Chloride 105 Carbon Dioxide 22.3 Anion Gap 10 BUN 20 H Creatinine 1.84 H 1.56 H Estimated GFR 36 L 44 L Random Glucose 86 Calcium 7.9 L Troponin I 0.23 H 0.18 H Imaging: ITS Impressions Chest X-Ray 06/06/18 11:27 CONCLUSION: Bilateral upper lobe densities. Decreasing density in the right lung base.
--- NOTE | 2018-06-08 15:10 | P.PNID ---
Subjective Remarks: + ongoing diarreah not expectorating improved plts and ANC up tp 1200 Antibiotics: vanco iv cefepime azithro Allergies/Adverse Reactions: Allergies No Known Allergies Allergy (Verified 06/06/18 14:51) Objective Vital Signs 06/07/18 16:00 06/07/18 20:36 06/08/18 00:00 Temperature 99.1 F 99.7 F H 99 F Pulse Rate 97 H 87 93 H Respiratory Rate 20 20 18 Blood Pressure 114/50 L 123/59 L 117/57 L Pulse Oximetry 97 97 96 06/08/18 05:56 06/08/18 09:50 Temperature 99.9 F H 98.9 F Pulse Rate 87 85 Respiratory Rate 18 20 Blood Pressure 117/58 L 125/58 L Pulse Oximetry 95 97 Intake & Output 06/07/18 06/08/18 06/08/18 18:59 06:59 18:59 Intake Total 1383 / 1383 3585 / 3585 1000 / 1000 Output Total 1050 / 1050 3075 / 3075 Balance 333 / 333 510 / 510 1000 / 1000 Weight 89 kg Intake: IV 550 / 550 [birth year] 1000 / 1000 NS Inj 1,000 ML @ 100 mls/hr IV 1000 / 1000 1000 / 1000 .CONT .Q10H [facility] Rx#:[id number] Azithromycin Inj 250 MG In NS 250 / 250 250 / 250 Inj 250 ML @ 250 mls/hr IV.SIG Q24H [facility] Rx#:[id number] Maxipime Inj 2,000 MG In NS Inj 200 / 200 100 ML @ 200 mls/hr IV.SIG Q12H [facility] Rx#:[id number] Zyvox 600 mg Premix 300 ML @ 300 / 300 300 mls/hr IV.SIG Q12H [facility] Rx#: [id number] Vancomycin Inj 1,500 MG In NS 515 / 515 Inj 500 ML @ 250 mls/hr IV.SIG ONCE ONE Rx#:[id number] Oral 833 / 833 1620 / 1620 Output: Urine 1050 / 1050 3075 / 3075 Other: Date of Last Bowel Movement 06/07/18 06/07/18 # Bowel Movements 4 06/06/18 12:04 Blood - Peripheral Aerobic Blood Culture - Preliminary No growth in 2 days 06/06/18 12:04 Blood - Peripheral Anaerobic Blood Culture - Preliminary No growth in 2 days 06/06/18 11:59 Blood - Peripheral Aerobic Blood Culture - Preliminary No growth in 2 days 06/06/18 11:59 Blood - Peripheral Anaerobic Blood Culture - Preliminary No growth in 2 days 06/06/18 12:10 Nasal Wash Influenza Types A,B Antigen - Final Negative for FLU A and B antigen Infection due to influenza A or B cannot be ruled out since the antigen present in the sample may be below the detection limit of the test. Lab - Hematology Results 06/07/18 06/08/18 05:00 11:14 WBC 1.8 L 2.3 L RBC 3.06 L 3.37 L Hgb 8.5 L 9.5 L Hct 25.1 L 28.5 L MCV 82.0 84.6 MCH 27.7 28.1 MCHC 33.8 33.3 RDW 25.6 H 25.8 H Plt Count 16 L* D 21 L D MPV 8.1 8.2 Prelim Diff (Auto) Slide review pending Slide review pending Neut % (Auto) 59.0 52.8 Lymph % (Auto) 26.9 34.2 [place] % (Auto) 10.1 H 7.5 Eos % (Auto) 2.9 5.0 H Baso % (Auto) 1.1 0.5 Neut # (Auto) 1.1 L 1.2 L Lymph # (Auto) 0.5 L 0.8 L [place] # (Auto) 0.2 0.2 Eos # (Auto) 0.1 0.1 Baso # (Auto) 0.0 0.0 WBC Differential Manual diff final Manual diff final Seg Neuts % (Manual) 43 51 Band Neuts % (Manual) 18 H 11 H Lymphocytes % (Manual) 21 24 Monocytes % (Manual) 3 2 Eosinophils % (Manual) 8 H 7 H Basophils % (Manual) 1 1 Blast Cells % (Manual) 6 H 4 H Abs Neuts (Manual) 1.1 L 1.4 L Nucleated RBCs/100 WBC 3 H Differential Comment . . Platelet Estimate Rare L Low L Platelet Morphology Normal Normal Dimorphic RBCs Present H Basophilic Stippling Moderate H Ovalocytes 1+ H Acanthocytes (Spur) Occ H Lab - Chemistry Results 06/06/18 06/07/18 06/08/18 23:59 05:00 05:56 Sodium 137 Potassium 3.9 Chloride 105 Carbon Dioxide 22.3 Anion Gap 10 BUN 20 H Creatinine 1.84 H 1.56 H Estimated GFR 36 L 44 L Random Glucose 86 Calcium 7.9 L Troponin I 0.23 H 0.18 H Imaging: ITS Impressions Chest X-Ray 06/06/18 11:27 CONCLUSION: Bilateral upper lobe densities. Decreasing density in the right lung base. Physical Exam: GENERAL: NAd chroniclally ill appearing SKIN: Warm and dry. no rash HEAD: Atraumatic. Normocephalic. EYES: Pupils equal and round. No scleral icterus. No injection or drainage. ENT: No nasal bleeding or discharge. Mucous membranes pink and moist. NECK: Trachea midline. No JVD. CARDIOVASCULAR: Regular rate and rhythm. RESPIRATORY: No accessory muscle use. Clear to auscultation. Breath sounds equal bilaterally. GASTROINTESTINAL: Abdomen soft, non-tender, nondistended. Hepatic and splenic margins not palpable. MUSCULOSKELETAL: Extremities without clubbing, cyanosis, or + mild edema. NEUROLOGICAL: Awake and alert. No obvious cranial nerve deficits. Motor grossly within normal limits. Five out of 5 muscle strength in the arms and legs. Normal speech. PSYCHIATRIC: calm , cooperative Assessment and Plan - Plan Myelodysplastic syndrome with resultant pancytopenia: Continue supportive care, previously received Dacogen x3 cycles. He remains cytopenic, supportive transfusions to maintain hemoglobin above 7.5 g/dL and platelet transfusion to maintain platelet count over 15,000/mcL. At previous visit I did treat him briefly with Neupogen for growth factor support for severe neutropenia. Should be noted that his most recent bone marrow biopsy from April 2018 revealed approximately 10% myeloblasts in the bone marrow. This represents a moderate reduction in absolute blast percentage which prior to initiation of Dacogen in the fall 2017 was noted to be closer to 17%. Pneumonia: PET scan fro October and chest CTA from 05/24 were dw radiologist: atypical PNA vs malignancy Diarrhea: Stool for C. difficile PCR ordered. I would advise initiating on oral vancomycin if this is positive. History of lung cancer, prostate cancer and bladder cancer: These have been previously treated based on PET/CT imaging performed in the summer 2017 his solid tumor oncologic diagnoses are in remission. sputum clx cont cefepime cont azithromycin cont Vancomycin ro C.diff kvng RN
[2018-06-08] MEDS: Azithromycin Inj 250 MG in Sodium Chlor 0.9% Inj 250 ML IV.SIG SCH (17:14)
[2018-06-08] MEDS: Sod Chloride 0.9% Inj 1,000 ML IV.CONT SCH ×2 (21:36)
[2018-06-08] MEDS: Vancomycin Inj 1,500 MG in Sodium Chlor 0.9% Inj 500 ML IV.SIG SCH (21:36)
[2018-06-09] MEDS: Sod Chloride 0.9% Inj 1,000 ML IV.CONT SCH ×3 (06:18→22:28)
[2018-06-09] MEDS: Ferrous Sulfate 325 MG Tablet PO SCH (12:26)
[2018-06-09] MEDS: Acetaminophen 325 MG Tablet PO PRN (12:26)
--- NOTE | 2018-06-09 13:33 | P.PNIM ---
Subjective Interval history: He is in bed appears in not acute distress at this time. He was noted however with temperature of 100.8 received Tylenol. He denies any chest pain or shortness of breath. He is not coughing at this time. Feels tired. Appetite is not a good. Still with diarrhea. He would like to go home however Physical Exam Vital signs: Vital Signs 06/08/18 16:00 06/08/18 20:00 06/09/18 00:00 Temperature 99.7 F H 99.2 F 97.6 F Pulse Rate 74 103 H 94 H Respiratory Rate 20 18 18 Blood Pressure 130/77 132/63 128/60 Pulse Oximetry 97 94 L 93 L 06/09/18 04:00 06/09/18 08:00 06/09/18 12:00 Temperature 98.2 F 98.5 F 100.8 F H Pulse Rate 89 101 H 85 Respiratory Rate 18 20 24 Blood Pressure 145/65 H 159/69 H 141/61 H Pulse Oximetry 97 92 L 86 L Intake & Output 06/08/18 06/09/18 06/09/18 18:59 06:59 18:59 Intake Total 1350 / 1350 2815 / 2815 Output Total 3000 / 3000 Balance 1350 / 1350 -185 / -185 Weight 82 kg Intake: IV 1350 / 1350 1615 / 1615 NS Inj 1,000 ML @ 100 mls/hr IV 1000 / 1000 1000 / 1000 .CONT .Q10H [facility] Rx#:[id number] Azithromycin Inj 250 MG In NS 250 / 250 Inj 250 ML @ 250 mls/hr IV.SIG Q24H [facility] Rx#:[id number] Maxipime Inj 2,000 MG In NS Inj 100 / 100 100 / 100 100 ML @ 200 mls/hr IV.SIG Q12H [facility] Rx#:[id number] Vancomycin Inj 1,500 MG In NS 515 / 515 Inj 500 ML @ 250 mls/hr IV.SIG Q24H [facility] Rx#:[id number] Oral 1200 / 1200 Output: Urine 3000 / 3000 Other: Date of Last Bowel Movement 06/08/18 06/08/18 Narrative: GENERAL: Well-nourished well-developed ill-appearing elderly male appears in nad. CARDIOVASCULAR: Regular rate and rhythm. RESPIRATORY: No accessory muscle use. Few bilateral crackles, no wheezes, no rhonchi GASTROINTESTINAL: Abdomen soft, non-tender, nondistended. Normoactive bowel sounds MUSCULOSKELETAL: Extremities without clubbing, cyanosis, or edema. No obvious deformities. NEUROLOGICAL: Awake and alert person place and time. No obvious cranial nerve deficits. Motor grossly within normal limits. Five out of 5 muscle strength in the arms and legs. Normal speech. PSYCHIATRIC: Flat affect. 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 Sepsis resolving Follow-up with blood cultures, UA unremarkable Due to recent hospitalization and course of antibiotics, will consult infectious disease for further recommendations IV cefepime, azithromycin, IV vancomycin given in the emergency room, will not continue due to acute kidney injury and will start IV Zyvox Diarrhea. C. difficile is negative. Add Imodium. Acute kidney injury superimposed on chronic kidney disease stage IIlikely due to poor oral intake, organ dysfunction due to sepsis-IV fluid hydration, avoid nephrotoxins, hold home TIESHA inhibitor due to also superimposed hypotension Elevated troponin Ipatient has no complaint of chest pain this may be due to his acute kidney injury, will trend troponin I due to history of CAD and follow- up clinically. High-grade myelodysplastic syndromeconsult Dr. Purdy who had seen the patient during the previous hospitalization. Pancytopenia -worsening platelets likely due to sepsis and myelodysplastic syndrome, monitor, transfusions as needed, if platelets less than 15 K. Transfuse if hemoglobin drops less than 7.5 per oncology recommendation Hyponatremia due to hypovolemianormal saline DO NOT RESUSCITATE status Physical therapy evaluation Discussed with the patient, nurse, Dr. Corona infectious disease Discharge plan: Discharge when improved and cleared by infectious disease patient still on IV antibiotics. Patient to follow-up with he is oncology Dr. Mckeon as outpatient. Progress Note: Quality VTE Deep Vein Thrombosis/Pulmonary Embolism Present on Admission: No
[2018-06-09] MEDS: Azithromycin Inj 250 MG in Sodium Chlor 0.9% Inj 250 ML IV.SIG SCH (16:04)
--- NOTE | 2018-06-09 17:23 | XR ---
EXAM DATE: 06/09/2018 5:18 PM EST AGE/SEX: 72 years / Male INDICATIONS: Short of breath. CLINICAL DATA: This is the patient's initial encounter. Patient reports that signs and symptoms have been present for 1 day and indicates a pain score of 0/10. MEDICAL/SURGICAL HISTORY: Leukemia. . port for chemo for leukemia, cardiac stents COMPARISON: C, CHEST 1V SINGLE AP, 06/06/2018. [facility] [place], CTA PULMONARY W CONTRAST W 3D, 05/24/2018. [facility] [place], CHEST 1V SINGLE AP, 05/25/2018. . FINDINGS: The overall appearance of the lungs is very similar to 06/06/2018 with prominent consolidative opacity in the right pulmonary apex, intermediate prominent opacity in the lateral right mid and lower lung and a focal area of masslike opacity in the upper central left lung. Both hemidiaphragms remain disce rnible. The heart is normal size. Tortuosity descending thoracic aorta. [id number] catheter tip at the cavoatrial junction. CONCLUSION: No acute findings. Stable bilateral lung masses/opacities. Electronically signed by: Wilman Leal MD Board Certified Radiologist 06/09/2018 5:22 PM EST
[2018-06-09 17:27] LABS: ABG Base Excess -4.8 mmol/L (-2-2); ABG PCO2 27 mmHg (38-42); ABG PO2 80 mmHG (61-120)
[2018-06-09] MEDS: Senna/Docusate Sodium 8.6/50 MG Tablet PO SCH ×2 (18:43→22:14)
[2018-06-09] MEDS: Megestrol Acetate Liq 400 MG/10 ML UDC PO SCH (19:05)
[2018-06-09] MEDS: Vancomycin Inj 1,500 MG in Sodium Chlor 0.9% Inj 500 ML IV.SIG SCH (22:23)
[2018-06-10] MEDS: Acetaminophen 325 MG Tablet PO PRN ×2 (01:31→23:55)
[2018-06-10] MEDS: Megestrol Acetate Liq 400 MG/10 ML UDC PO SCH (09:05)
[2018-06-10] MEDS: Ferrous Sulfate 325 MG Tablet PO SCH (09:05)
[2018-06-10] MEDS: Senna/Docusate Sodium 8.6/50 MG Tablet PO SCH ×2 (09:06→22:01)
--- NOTE | 2018-06-10 10:16 | P.PNONC ---
Subjective Interval history: Patient sitting up on the side of the bed upon entering the room. States that he is ready to go home today, will leave if he is not discharged. Reports that he has had 2 loose stools today and soreness to his buttocks. Patient denies any chest pain or worsening shortness of breath. Objective Vital Signs/Intake & Output: Vital Signs 06/09/18 12:00 06/09/18 16:00 06/09/18 20:00 Temperature 100.8 F H 98.8 F 97.5 F L Pulse Rate 85 87 89 Respiratory Rate 24 20 18 Blood Pressure 141/61 H 138/61 131/60 Pulse Oximetry 86 L 96 97 06/10/18 00:00 06/10/18 04:00 Temperature 100.6 F H 97.9 F Pulse Rate 94 H 83 Respiratory Rate 18 18 Blood Pressure 125/60 115/61 Pulse Oximetry 94 L 96 Intake & Output 06/09/18 06/10/18 06/10/18 18:59 06:59 18:59 Intake Total 1000 / 1000 2070 / 2070 Output Total 1550 / 1550 Balance 1000 / 1000 520 / 520 Weight 88 kg Intake: IV 1000 / 1000 1350 / 1350 NS Inj 1,000 ML @ 100 mls/hr IV 1000 / 1000 1000 / 1000 .CONT .Q10H [facility] Rx#:[id number] Azithromycin Inj 250 MG In NS 250 / 250 Inj 250 ML @ 250 mls/hr IV.SIG Q24H [facility] Rx#:[id number] Maxipime Inj 2,000 MG In NS Inj 100 / 100 100 ML @ 200 mls/hr IV.SIG Q12H [facility] Rx#:[id number] Oral 720 / 720 Output: Urine 1550 / 1550 Other: Date of Last Bowel Movement 06/09/18 Result Diagrams: 06/08/18 11:14 06/10/18 06:05 Laboratory Results: Laboratory Results - last 24 hr 06/09/18 06/09/18 06/10/18 07:40 17:17 06:05 Puncture Site Right radial Patient Temperature 98.6 O2 Saturation 94 ABG pH 7.45 H ABG pCO2 27 L ABG pO2 80 ABG HCO3 19 L ABG O2 Content 10.6 L ABG Base Excess -4.8 L ABG Methemoglobin 1.5 Maurice Test Present Hemoglobin 7.9 L* Carboxyhemoglobin 1.8 O2 Delivery Device Nasal cannula Liter Flow 3.00 Critical Value Yes Creatinine 1.22 Estimated GFR 58 L Stl C.difficile DNA Amp Negative St C. diff Tox Epid 027 Negative Culture Results: Microbiology 06/06/18 12:04 Aerobic Blood Culture - Preliminary Blood - Peripheral No growth in 3 days Anaerobic Blood Culture - Preliminary No growth in 3 days 06/06/18 11:59 Aerobic Blood Culture - Preliminary Blood - Peripheral No growth in 3 days Anaerobic Blood Culture - Preliminary No growth in 3 days Imaging Studies: Impressions Chest X-Ray 06/09/18 16:57 CONCLUSION: No acute findings. Stable bilateral lung masses/opacities. Medications: Active Medications Generic Name Dose Route Start Last Admin Trade Name Freq PRN Reason Stop Dose Admin Acetaminophen 650 mg 06/06/18 14:14 06/10/18 01:31 Tylenol PO 650 mg Q4H PRN Administration Temp > 100.4 Atorvastatin Calcium 40 mg 06/07/18 09:00 06/10/18 09:05 Lipitor PO 40 mg DAILY [facility] Administration Ferrous Sulfate 325 mg 06/07/18 09:00 06/10/18 09:05 Ferosul PO 325 mg DAILY [facility] Administration Azithromycin 250 mg/ Sodium 250 mls @ 250 mls/hr 06/06/18 16:00 06/09/18 19: 24 Chloride IV.SIG Infused Q24H [facility] Infusion Cefepime HCl 2,000 mg/ Sodium 100 mls @ 200 mls/hr 06/07/18 02:00 06/10/18 02 :21 Chloride IV.SIG 0 mls/hr Q12H [facility] Sodium Chloride 1,000 mls @ 100 mls/hr 06/06/18 14:15 06/09/18 22:28 Ns Inj IV.CONT 100 mls/hr .Q10H [facility] Administration Vancomycin HCl 1,500 mg/ 515 mls @ 250 mls/hr 06/08/18 22:00 06/10/18 02:21 Sodium Chloride IV.SIG 0 mls/hr Q24H [facility] Infusion Megestrol Acetate 400 mg 06/09/18 18:00 06/10/18 09:05 Megace Liq PO 400 mg DAILY [facility] Administration Metoprolol Succinate 25 mg 06/07/18 09:00 06/10/18 09:05 Toprol Xl PO 25 mg DAILY [facility] Administration Senna/Docusate Sodium 1 tab 06/06/18 21:00 06/10/18 09:06 Ольга-Colace PO Not Given BID [facility] Sodium Chloride 2 ml 06/06/18 21:00 06/09/18 20:18 Ns Flush IV.FLUSH 2 ml BID [facility] Administration Objective Remarks: GENERAL: Older male sitting on side of bed in no acute distress SKIN: Warm and dry. Excoriation and redness noted to sacral and coccygeal area with barrier cream. HEAD: Normocephalic. EYES: No scleral icterus. No injection or drainage. NECK: Supple, trachea midline. CARDIOVASCULAR: Regular rate and rhythm without murmurs. RESPIRATORY: Posterior breath sounds clear and equal bilaterally. Nonlabored at rest. GASTROINTESTINAL: Abdomen soft, non-tender, nondistended. EXTREMITIES: No cyanosis, or edema. MUSCULOSKELETAL: Adequate muscle tone. NEUROLOGICAL: No obvious focal deficit. Awake, alert, and oriented x3. Assessment/Plan - Plan This is a pleasant 72-year-old male with history of high-grade myelodysplastic syndrome. His most recent cycle of Dacogen was given under the care of Dr. Mckeon in April 2018. He was admitted 2 weeks ago with high-grade fever in the setting of neutropenia and was eventually discharged. He has come back with what appears to be failure to thrive. Plan: 1. Patient is anxious to go home today, will order CBC and CMP for this morning. 2. Tmax 100.8. He continues on azithromycin and cefepime per infectious disease. Continue to monitor CBC and transfuse to keep hemoglobin greater than 7.5 and platelet count greater than 15,000. Once he is medically stable he can be discharged with recommendations from infectious disease back to Dr. Mckeon for further management of his oncological diagnoses. 3. Failure to thrive, patient was started on Megesterol Acetate yesterday. Discussed this with patient and family at bedside. 4. Stage 1 excoriation/ redness to sacrum/ coccygeal area, continue with barrier cream and encouraged patient to lie on his side intermittently to avoid worsening breakdown. 5. Continue supportive measures.
[2018-06-10] MEDS: Sod Chloride 0.9% Inj 1,000 ML IV.CONT SCH ×2 (12:18→23:59)
--- NOTE | 2018-06-10 15:26 | P.PNIM ---
Subjective Interval history: Patient is at the margin of the bed appears tired and with some shortness of breath. Patient denies any chest pain. No cough. No fever or chills. Physical Exam Vital signs: Vital Signs 06/09/18 16:00 06/09/18 20:00 06/10/18 00:00 Temperature 98.8 F 97.5 F L 100.6 F H Pulse Rate 87 89 94 H Respiratory Rate 20 18 18 Blood Pressure 138/61 131/60 125/60 Pulse Oximetry 96 97 94 L 06/10/18 04:00 06/10/18 08:57 06/10/18 12:07 Temperature 97.9 F 98.6 F 98.1 F Pulse Rate 83 89 107 H Respiratory Rate 18 18 20 Blood Pressure 115/61 140/64 146/68 H Pulse Oximetry 96 97 91 L Intake & Output 06/09/18 06/10/18 06/10/18 18:59 06:59 18:59 Intake Total 1000 / 1000 2070 / 2070 1100 / 1100 Output Total 1550 / 1550 Balance 1000 / 1000 520 / 520 1100 / 1100 Weight 88 kg Intake: IV 1000 / 1000 1350 / 1350 1100 / 1100 NS Inj 1,000 ML @ 100 mls/hr IV 1000 / 1000 1000 / 1000 1000 / 1000 .CONT .Q10H [facility] Rx#:[id number] Azithromycin Inj 250 MG In NS 250 / 250 Inj 250 ML @ 250 mls/hr IV.SIG Q24H [facility] Rx#:[id number] Maxipime Inj 2,000 MG In NS Inj 100 / 100 100 / 100 100 ML @ 200 mls/hr IV.SIG Q12H [facility] Rx#:[id number] Oral 720 / 720 Output: Urine 1550 / 1550 Other: Date of Last Bowel Movement 06/09/18 01/08/09 Narrative: GENERAL: Well-nourished well-developed ill-appearing elderly male appears in nad. CARDIOVASCULAR: Regular rate and rhythm. RESPIRATORY: No accessory muscle use. Few bilateral crackles, no wheezes, no rhonchi GASTROINTESTINAL: Abdomen soft, non-tender, nondistended. Normoactive bowel sounds MUSCULOSKELETAL: Extremities without clubbing, cyanosis, or edema. No obvious deformities. NEUROLOGICAL: Awake and alert person place and time. No obvious cranial nerve deficits. Motor grossly within normal limits. Five out of 5 muscle strength in the arms and legs. Normal speech. PSYCHIATRIC: Flat affect. Results Labs CBC & Chem 7: 06/08/18 11:14 06/10/18 06:05 Labs: Microbiology 06/06/18 12:04 Blood - Peripheral Aerobic Blood Culture - Preliminary No growth in 4 days 06/06/18 12:04 Blood - Peripheral Anaerobic Blood Culture - Preliminary No growth in 4 days 06/06/18 11:59 Blood - Peripheral Aerobic Blood Culture - Preliminary No growth in 4 days 06/06/18 11:59 Blood - Peripheral Anaerobic Blood Culture - Preliminary No growth in 4 days Imaging Imaging: Impressions Chest X-Ray 06/09/18 16:57 CONCLUSION: No acute findings. Stable bilateral lung masses/opacities. 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 Sepsis resolving Follow-up with blood cultures, UA unremarkable Due to recent hospitalization and course of antibiotics, will consult infectious disease for further recommendations IV cefepime, azithromycin, IV vancomycin given in the emergency room, will not continue due to acute kidney injury and will start IV Zyvox Diarrhea. C. difficile is negative. Add Imodium. Acute kidney injury superimposed on chronic kidney disease stage IIlikely due to poor oral intake, organ dysfunction due to sepsis-IV fluid hydration, avoid nephrotoxins, hold home TIESHA inhibitor due to also superimposed hypotension Elevated troponin Ipatient has no complaint of chest pain this may be due to his acute kidney injury, will trend troponin I due to history of CAD and follow- up clinically. High-grade myelodysplastic syndromeconsult Dr. Purdy who had seen the patient during the previous hospitalization. Pancytopenia -worsening platelets likely due to sepsis and myelodysplastic syndrome, monitor, transfusions as needed, if platelets less than 15 K. Transfuse if hemoglobin drops less than 7.5 per oncology recommendation Hyponatremia due to hypovolemianormal saline DO NOT RESUSCITATE status Physical therapy evaluation Discussed with the patient, nurse, Dr. Corona infectious disease Discharge plan: Discharge when improved and cleared by infectious disease patient still on IV antibiotics. Patient to follow-up with his oncology Dr. Mckeon as outpatient. Progress Note: Quality VTE Deep Vein Thrombosis/Pulmonary Embolism Present on Admission: No
[2018-06-10 15:49] LABS: Baso % (Auto) 1.2 % (0.0-2.0); Eos # (Auto) 0.1 th/mm3 (0.0-0.4); Eos % (Auto) 5.5 % (0.0-4.0); Lymph # (Auto) 0.4 th/mm3 (1.0-4.8); Lymph % (Auto) 37.9 % (9.0-44.0); Mean Corpuscular HGB Conc 34.8 % (32.0-36.0); Mean Corpuscular Hemoglobin 28.2 pg (27.0-34.0); Mono # (Auto) 0.1 th/mm3 (0.0-0.9); Mono % (Auto) 4.5 % (0.0-8.0); Neut # (Auto) 0.6 th/mm3 (1.8-7.7); Neut % (Auto) 50.9 % (16.0-70.0); Red Blood Count 2.45 mil/mm3 (4.50-5.90); Red Cell Distribution Width 25.2 % (11.6-17.2); White Blood Count 1.1 th/mm3 (4.0-11.0)
[2018-06-10 15:53] LABS: Alanine Aminotransferase 14 U/L (12-78); Albumin 2.1 g/dL (3.4-5.0); Anion Gap 8 meq/L (5-15); Aspartate Aminotransferase 18 U/L (15-37); Blood Urea Nitrogen 10 mg/dL (7-18); Calcium 7.8 mg/dL (8.5-10.1); Carbon Dioxide 21.4 meq/L (21.0-32.0); Chloride 112 meq/L (98-107); Glucose,Random 110 mg/dL (74-106); Potassium 4.2 meq/L (3.5-5.1); Sodium 141 meq/L (136-145)
[2018-06-10 15:55] LABS: Alkaline Phosphatase 44 U/L (45-117); Glomerular Filtration Rate 57 mL/min (>89); Total Protein 6.4 g/dL (6.4-8.2)
[2018-06-10 16:11] LABS: Hematocrit 19.9 % (39.0-51.0); Hemoglobin 6.9 gm/dL (13.0-17.0)
[2018-06-10 16:12] LABS: Platelet Count 18 th/mm3 (150-450)
[2018-06-10 16:48] LABS: Blast Cells 3 % (0-0); Eosinophils 8 % (0-4); Lymphocytes 37 % (9-44)
[2018-06-10 16:49] LABS: Dohle Bodies Present; Ovalocytes 1+
[2018-06-10 16:50] LABS: Platelet Morphology Normal (Normal)
[2018-06-10] MEDS: Azithromycin Inj 250 MG in Sodium Chlor 0.9% Inj 250 ML IV.SIG SCH (18:20)
[2018-06-10] MEDS: Vancomycin Inj 1,500 MG in Sodium Chlor 0.9% Inj 500 ML IV.SIG SCH (22:02)
[2018-06-11] MEDS: Sod Chloride 0.9% Inj 1,000 ML IV.CONT SCH ×2 (06:20→18:42)
[2018-06-11] MEDS: Senna/Docusate Sodium 8.6/50 MG Tablet PO SCH (10:11)
[2018-06-11] MEDS: Ferrous Sulfate 325 MG Tablet PO SCH (10:41)
[2018-06-11] MEDS: Megestrol Acetate Liq 400 MG/10 ML UDC PO SCH (10:41)
--- NOTE | 2018-06-11 10:46 | P.PNONC ---
Subjective Interval history: Afebrile, neutropenic. Status post 1 unit PRBCs last night. Patient is frustrated and states he wants to go home. We have discussed his current treatment plan, he is an plant electrical engineer and it appears that his frustration is stemming from not having a black and white "blueprint". We discussed AMA, his discourages this. The patient appears to be willing to stay at this time. He reports a bloody nose this a.m., his platelet count was 18,000 yesterday. CBC is pending this a.m. However given his bloody nose will transfuse platelets. Patient is agreeable to this. Patient also reports diarrhea, having 4 episodes this a.m. His C. difficile test was negative, therefore will give Lomotil. Patient shouts at his several times during our conversation, he has been asked to calm down. Objective Vital Signs/Intake & Output: Vital Signs 06/10/18 12:07 06/10/18 20:00 06/10/18 20:01 Temperature 98.1 F 98.9 F Pulse Rate 107 H 95 H Respiratory Rate 20 24 24 Blood Pressure 146/68 H 157/73 H Pulse Oximetry 91 L 93 L 06/11/18 00:50 06/11/18 01:43 06/11/18 01:45 Temperature 97.8 F 98.1 F Pulse Rate 80 81 Respiratory Rate 20 22 22 Blood Pressure 107/57 L 128/59 L Pulse Oximetry 92 L 93 L 06/11/18 04:00 06/11/18 04:16 Temperature 98.1 F Pulse Rate 87 Respiratory Rate 20 20 Blood Pressure 139/65 Pulse Oximetry 92 L Intake & Output 06/10/18 06/11/18 06/11/18 18:59 06:59 18:59 Intake Total 2563 / 2563 3655 / 3655 Output Total 2825 / 2825 2100 / 2100 Balance -262 / -262 1555 / 1555 Weight 88.2 kg Intake: IV 1200 / 1200 2405 / 2405 NS Inj 1,000 ML @ 100 mls/hr IV 1000 / 1000 1000 / 1000 .CONT .Q10H [facility] Rx#:[id number] Azithromycin Inj 250 MG In NS 260 / 260 Inj 250 ML @ 250 mls/hr IV.SIG Q24H [facility] Rx#:[id number] Maxipime Inj 2,000 MG In NS Inj 200 / 200 110 / 110 100 ML @ 200 mls/hr IV.SIG Q12H [facility] Rx#:[id number] Vancomycin Inj 1,500 MG In NS 1035 / 1035 Inj 500 ML @ 250 mls/hr IV.SIG Q24H [facility] Rx#:[id number] Oral 1363 / 1363 1250 / 1250 Intake (Blood Product) Amt 0 / 0 Rbc As-3 Leukoreduced Irrad 0 / 0 Unit [id number] Output: Urine 2825 / 2825 1800 / 1800 Stool 300 / 300 Other: Date of Last Bowel Movement 01/08/09 01/08/09 01/08/09 Result Diagrams: 06/10/18 15:05 06/10/18 15:05 Laboratory Results: Laboratory Results - last 24 hr 06/10/18 06/10/18 06/10/18 15:05 15:05 20:00 WBC 1.1 L RBC 2.45 L Hgb 6.9 L* Hct 19.9 L* MCV 81.0 D MCH 28.2 MCHC 34.8 RDW 25.2 H Plt Count 18 L* MPV 8.0 Prelim Diff (Auto) Slide review pending Neut % (Auto) 50.9 Lymph % (Auto) 37.9 [place] % (Auto) 4.5 Eos % (Auto) 5.5 H Baso % (Auto) 1.2 Neut # (Auto) 0.6 L Lymph # (Auto) 0.4 L [place] # (Auto) 0.1 Eos # (Auto) 0.1 Baso # (Auto) 0.0 WBC Differential Manual diff final Seg Neuts % (Manual) 35 Band Neuts % (Manual) 14 H Lymphocytes % (Manual) 37 Eosinophils % (Manual) 8 H Basophils % (Manual) 3 H Blast Cells % (Manual) 3 H Abs Neuts (Manual) 0.5 L* Differential Comment . Dohle Bodies Present H Platelet Estimate Low L Platelet Morphology Normal Ovalocytes 1+ H Keratocytes Occ H Sodium 141 Potassium 4.2 Chloride 112 H Carbon Dioxide 21.4 Anion Gap 8 BUN 10 Creatinine 1.24 Estimated GFR 57 L Random Glucose 110 H Calcium 7.8 L Total Bilirubin 0.5 AST 18 ALT 14 Alkaline Phosphatase 44 L Total Protein 6.4 Albumin 2.1 L Blood Type O Negative Antibody Screen Negative MTS Gel Crossmatch See Detail Culture Results: Microbiology 06/06/18 12:04 Aerobic Blood Culture - Preliminary Blood - Peripheral No growth in 4 days Anaerobic Blood Culture - Preliminary No growth in 4 days 06/06/18 11:59 Aerobic Blood Culture - Preliminary Blood - Peripheral No growth in 4 days Anaerobic Blood Culture - Preliminary No growth in 4 days Medications: Active Medications Generic Name Dose Route Start Last Admin Trade Name Freq PRN Reason Stop Dose Admin Acetaminophen 650 mg 06/06/18 14:14 06/10/18 23:55 Tylenol PO 650 mg Q4H PRN Administration Temp > 100.4 Atorvastatin Calcium 40 mg 06/07/18 09:00 06/10/18 09:05 Lipitor PO 40 mg DAILY [facility] Administration Diphenhydramine HCl 25 mg 06/10/18 19:31 06/10/18 23:55 Benadryl PO 25 mg Q4H PRN Administration SEE LABEL COMMENTS Ferrous Sulfate 325 mg 06/07/18 09:00 06/10/18 09:05 Ferosul PO 325 mg DAILY [facility] Administration Azithromycin 250 mg/ Sodium 250 mls @ 250 mls/hr 06/06/18 16:00 06/10/18 19: 30 Chloride IV.SIG Infused Q24H [facility] Infusion Cefepime HCl 2,000 mg/ Sodium 100 mls @ 200 mls/hr 06/07/18 02:00 06/11/18 05 :00 Chloride IV.SIG Infused Q12H [facility] Infusion Sodium Chloride 1,000 mls @ 100 mls/hr 06/06/18 14:15 06/11/18 06:20 Ns Inj IV.CONT Not Given .Q10H [facility] Vancomycin HCl 1,500 mg/ 515 mls @ 250 mls/hr 06/08/18 22:00 06/11/18 01:00 Sodium Chloride IV.SIG Infused Q24H [facility] Infusion Megestrol Acetate 400 mg 06/09/18 18:00 06/10/18 09:05 Megace Liq PO 400 mg DAILY [facility] Administration Metoprolol Succinate 25 mg 06/07/18 09:00 06/10/18 09:05 Toprol Xl PO 25 mg DAILY [facility] Administration Senna/Docusate Sodium 1 tab 06/06/18 21:00 06/11/18 10:11 Ольга-Colace PO Not Given BID [facility] Sodium Chloride 2 ml 06/06/18 21:00 06/10/18 22:03 Ns Flush IV.FLUSH 2 ml BID [facility] Administration Objective Remarks: GENERAL: Well-nourished, well-developed elderly male patient, no acute distress peer SKIN: Pale, warm and dry. HEAD: Normocephalic. EYES: No scleral icterus. No injection or drainage. NECK: Supple, trachea midline. CARDIOVASCULAR: Regular rate and rhythm without murmurs. RESPIRATORY: Posterior breath sounds clear, equal bilaterally. Nonlabored at rest. GASTROINTESTINAL: Abdomen soft, non-tender, nondistended. EXTREMITIES: No cyanosis, or edema. MUSCULOSKELETAL: Adequate muscle tone. NEUROLOGICAL: No obvious focal deficit. Awake, alert, and oriented x3. PSYCHIATRIC: Angry. Assessment/Plan - Plan This is a pleasant 72-year-old male with history of high-grade myelodysplastic syndrome. His most recent cycle of Dacogen was given under the care of Dr. Mckeon in April 2018. He was admitted 2 weeks ago with high-grade fever in the setting of neutropenia and was eventually discharged. He has come back with what appears to be failure to thrive. Plan: 1. High-grade myelodysplastic syndrome, under the care of Dr. Mckeon. 2. Neutropenia, afebrile. Blood cultures negative times 4 days. He continues on azithromycin and cefepime per infectious disease. Continue neutropenic precautions. 3. Pancytopenia, status post 1 unit PRBCs for hemoglobin of 6.9 g/dL last night , awaiting CBC this a.m. Patient had bloody nose today, currently controlled. Platelet count yesterday was 18,000, awaiting today's count, however given his bloody nose will transfuse 1 unit platelets. 4. Diarrhea, C. difficile negative will start Lomotil. 5. Discussed treatment plan with patient and his , patient was initially wanting to leave AMA, however at this time is agreeable to proceed with treatment. His does not wish for him to sign out AMA.
[2018-06-11] MEDS ORDERED: Sodium Chlor 0.9% Inj 250 ML IV.SIG SCH (11:00)
[2018-06-11] MEDS: Diphenoxylate/Atropine 2.5/0.025 MG Tablet PO PRN (11:30)
[2018-06-11 11:33] LABS: Eos # (Auto) 0.1 th/mm3 (0.0-0.4); Eos % (Auto) 5.5 % (0.0-4.0); Hematocrit 25.4 % (39.0-51.0); Hemoglobin 8.6 gm/dL (13.0-17.0); Lymph # (Auto) 0.6 th/mm3 (1.0-4.8); Lymph % (Auto) 40.9 % (9.0-44.0); Mean Corpuscular HGB Conc 33.8 % (32.0-36.0); Mean Corpuscular Hemoglobin 28.1 pg (27.0-34.0); Mean Corpuscular Volume 83.1 fL (80.0-100.0); Mono # (Auto) 0.1 th/mm3 (0.0-0.9); Mono % (Auto) 3.5 % (0.0-8.0); Neut # (Auto) 0.7 th/mm3 (1.8-7.7); Neut % (Auto) 49.1 % (16.0-70.0); Red Blood Count 3.06 mil/mm3 (4.50-5.90); Red Cell Distribution Width 23.5 % (11.6-17.2); White Blood Count 1.5 th/mm3 (4.0-11.0)
[2018-06-11 11:37] LABS: Platelet Count 15 th/mm3 (150-450)
[2018-06-11 12:42] LABS: Blast Cells 3 % (0-0); Eosinophils 9 % (0-4); Lymphocytes 19 % (9-44); Metamyelocytes 3 % (0-1); Monocytes 10 % (0-8)
[2018-06-11 12:43] LABS: Platelet Estimate Rare (Normal)
[2018-06-11 12:47] LABS: Platelet Morphology Normal (Normal)
[2018-06-11] MEDS: Acetaminophen 325 MG Tablet PO PRN ×2 (14:01→23:53)
--- NOTE | 2018-06-11 16:51 | P.PNIM ---
Subjective Interval history: The margin of the bed appears tired. He is pale. No overt bleeding. With low platelets, transfuse per hematocrit recommendations. Physical Exam Vital signs: Vital Signs 06/10/18 20:00 06/10/18 20:01 06/11/18 00:50 Temperature 98.9 F 97.8 F Pulse Rate 95 H 80 Respiratory Rate 24 24 20 Blood Pressure 157/73 H 107/57 L Pulse Oximetry 93 L 92 L 06/11/18 01:43 06/11/18 01:45 06/11/18 04:00 Temperature 98.1 F Pulse Rate 81 Respiratory Rate 22 22 20 Blood Pressure 128/59 L Pulse Oximetry 93 L 06/11/18 04:16 06/11/18 10:41 06/11/18 13:58 Temperature 98.1 F 98.3 F 100.1 F H Pulse Rate 87 92 H 97 H Respiratory Rate 20 20 20 Blood Pressure 139/65 139/64 147/67 H Pulse Oximetry 92 L 94 L 92 L 06/11/18 14:56 06/11/18 15:14 Temperature 99.9 F H 98.8 F Pulse Rate 82 87 Respiratory Rate 20 20 Blood Pressure 125/61 155/68 H Pulse Oximetry 95 93 L Intake & Output 06/10/18 06/11/18 06/11/18 18:59 06:59 18:59 Intake Total 2563 / 2563 3655 / 3655 286 / 286 Output Total 2825 / 2825 2100 / 2100 Balance -262 / -262 1555 / 1555 286 / 286 Weight 88.2 kg Intake: IV 1200 / 1200 2405 / 2405 NS Inj 1,000 ML @ 100 mls/hr IV 1000 / 1000 1000 / 1000 .CONT .Q10H [facility] Rx#:[id number] Azithromycin Inj 250 MG In NS 260 / 260 Inj 250 ML @ 250 mls/hr IV.SIG Q24H [facility] Rx#:[id number] Maxipime Inj 2,000 MG In NS Inj 200 / 200 110 / 110 100 ML @ 200 mls/hr IV.SIG Q12H [facility] Rx#:[id number] Vancomycin Inj 1,500 MG In NS 1035 / 1035 Inj 500 ML @ 250 mls/hr IV.SIG Q24H [facility] Rx#:[id number] Oral 1363 / 1363 1250 / 1250 Intake (Blood Product) Amt 0 / 0 286 / 286 Plt Pheresis B Leukoreduced 286 / 286 Unit [id number] Rbc As-3 Leukoreduced Irrad 0 / 0 Unit [id number] Output: Urine 2825 / 2825 1800 / 1800 Stool 300 / 300 Other: Date of Last Bowel Movement 01/08/09 01/08/09 01/08/09 Narrative: GENERAL: Well-nourished well-developed ill-appearing elderly male appears in nad. CARDIOVASCULAR: Regular rate and rhythm. RESPIRATORY: No accessory muscle use. Few bilateral crackles, no wheezes, no rhonchi GASTROINTESTINAL: Abdomen soft, non-tender, nondistended. Normoactive bowel sounds MUSCULOSKELETAL: Extremities without clubbing, cyanosis, or edema. No obvious deformities. NEUROLOGICAL: Awake and alert person place and time. No obvious cranial nerve deficits. Motor grossly within normal limits. Five out of 5 muscle strength in the arms and legs. Normal speech. PSYCHIATRIC: Flat affect. 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 Sepsis resolving Follow-up with blood cultures, UA unremarkable Due to recent hospitalization and course of antibiotics, will consult infectious disease for further recommendations IV cefepime, azithromycin, IV vancomycin given in the emergency room, will not continue due to acute kidney injury and will start IV Zyvox Diarrhea. C. difficile is negative. Add Imodium. Acute kidney injury superimposed on chronic kidney disease stage IIlikely due to poor oral intake, organ dysfunction due to sepsis-IV fluid hydration, avoid nephrotoxins, hold home TIESHA inhibitor due to also superimposed hypotension Elevated troponin Ipatient has no complaint of chest pain this may be due to his acute kidney injury, will trend troponin I due to history of CAD and follow- up clinically. High-grade myelodysplastic syndromeconsult Dr. Purdy who had seen the patient during the previous hospitalization. Pancytopenia -worsening platelets likely due to sepsis and myelodysplastic syndrome, monitor, transfusions as needed, if platelets less than 15 K. Transfuse if hemoglobin drops less than 7.5 per oncology recommendation Transfuse 1U PLT on 06/11 Hyponatremia due to hypovolemianormal saline DO NOT RESUSCITATE status Physical therapy evaluation Discussed with the patient, nurse, Dr. Corona infectious disease Discharge plan: Discharge when improved and cleared by infectious disease patient still on IV antibiotics. PLT transfused 06/11 Patient to follow-up with his oncology Dr. Mckeon as outpatient. Progress Note: Quality VTE Deep Vein Thrombosis/Pulmonary Embolism Present on Admission: No
[2018-06-11] MEDS: Azithromycin Inj 250 MG in Sodium Chlor 0.9% Inj 250 ML IV.SIG SCH (18:33)
[2018-06-11] MEDS ORDERED: Pharmacy Ordered Lab Info OTHER ONE (21:45)
[2018-06-11] MEDS: Vancomycin Inj 1,500 MG in Sodium Chlor 0.9% Inj 500 ML IV.SIG SCH (21:57)
[2018-06-12 05:32] LABS: Baso % (Auto) 1.8 % (0.0-2.0); Eos # (Auto) 0.1 th/mm3 (0.0-0.4); Eos % (Auto) 5.8 % (0.0-4.0); Hematocrit 23.2 % (39.0-51.0); Lymph # (Auto) 0.5 th/mm3 (1.0-4.8); Lymph % (Auto) 38.5 % (9.0-44.0); Mean Corpuscular HGB Conc 34.4 % (32.0-36.0); Mean Corpuscular Hemoglobin 28.6 pg (27.0-34.0); Mean Corpuscular Volume 83.2 fL (80.0-100.0); Mean Platelet Volume 8.2 fL (7.0-11.0); Neut # (Auto) 0.6 th/mm3 (1.8-7.7); Neut % (Auto) 49.9 % (16.0-70.0); Platelet Count 23 th/mm3 (150-450); Red Blood Count 2.78 mil/mm3 (4.50-5.90); Red Cell Distribution Width 22.6 % (11.6-17.2); White Blood Count 1.2 th/mm3 (4.0-11.0)
[2018-06-12 06:07] LABS: Albumin 2.1 g/dL (3.4-5.0); Anion Gap 9 meq/L (5-15); Aspartate Aminotransferase 15 U/L (15-37); Blood Urea Nitrogen 9 mg/dL (7-18); Calcium 7.6 mg/dL (8.5-10.1); Carbon Dioxide 19.9 meq/L (21.0-32.0); Chloride 117 meq/L (98-107); Glomerular Filtration Rate 61 mL/min (>89); Glucose,Random 110 mg/dL (74-106); Potassium 3.8 meq/L (3.5-5.1); Sodium 146 meq/L (136-145)
[2018-06-12 06:11] LABS: Alanine Aminotransferase 13 U/L (12-78); Alkaline Phosphatase 47 U/L (45-117); Total Protein 6.5 g/dL (6.4-8.2)
[2018-06-12] MEDS: Sod Chloride 0.9% Inj 1,000 ML IV.CONT SCH (08:00)
[2018-06-12 09:27] LABS: Blast Cells 5 % (0-0); Eosinophils 7 % (0-4); Lymphocytes 36 % (9-44); Monocytes 2 % (0-8)
[2018-06-12 09:28] LABS: Platelet Estimate Rare (Normal); Platelet Morphology Normal (Normal)
[2018-06-12] MEDS: Megestrol Acetate Liq 400 MG/10 ML UDC PO SCH (10:06)
[2018-06-12] MEDS: Diphenoxylate/Atropine 2.5/0.025 MG Tablet PO PRN (10:06)
[2018-06-12] MEDS: Ferrous Sulfate 325 MG Tablet PO SCH (10:07)
--- NOTE | 2018-06-12 11:03 | P.PNONC ---
Subjective Interval history: Patient in bed lying on his right side, awake and in mild distress. Reports that he is having difficulty breathing, states some improvement since just receiving breathing treatments. States that he is not asking to go home today as he understands that he is sick. Objective Vital Signs/Intake & Output: Vital Signs 06/11/18 13:58 06/11/18 14:56 06/11/18 15:14 Temperature 100.1 F H 99.9 F H 98.8 F Pulse Rate 97 H 82 87 Respiratory Rate 20 20 20 Blood Pressure 147/67 H 125/61 155/68 H Pulse Oximetry 92 L 95 93 L 06/11/18 20:00 06/11/18 23:46 06/12/18 00:41 Temperature 100.3 F H 101.4 F H Pulse Rate 108 H 103 H 93 H Respiratory Rate 24 28 H 23 Blood Pressure 153/69 H 151/68 H Pulse Oximetry 92 L 90 L 06/12/18 02:15 06/12/18 04:00 06/12/18 10:17 Temperature 98.4 F 97.5 F L 97.6 F Pulse Rate 95 H 99 H Respiratory Rate 24 24 Blood Pressure 133/60 158/71 H Pulse Oximetry 97 97 06/12/18 10:23 Temperature Pulse Rate 98 H Respiratory Rate 24 Blood Pressure Pulse Oximetry 94 L Intake & Output 06/11/18 06/12/18 06/12/18 18:59 06:59 18:59 Intake Total 2466 / 2466 2065 / 2065 1000 / 1000 Output Total 1225 / 1225 200 / 200 Balance 1241 / 1241 1865 / 1865 1000 / 1000 Weight 88 kg Intake: IV 1100 / 1100 865 / 865 1000 / 1000 NS Inj 1,000 ML @ 100 mls/hr IV 1000 / 1000 1000 / 1000 .CONT .Q10H [facility] Rx#:[id number] Azithromycin Inj 250 MG In NS 250 / 250 Inj 250 ML @ 250 mls/hr IV.SIG Q24H [facility] Rx#:[id number] Maxipime Inj 2,000 MG In NS Inj 100 / 100 100 / 100 100 ML @ 200 mls/hr IV.SIG Q12H [facility] Rx#:[id number] Vancomycin Inj 1,500 MG In NS 515 / 515 Inj 500 ML @ 250 mls/hr IV.SIG Q24H [facility] Rx#:[id number] Oral 1080 / 1079 1200 / 1200 Intake (Blood Product) Amt 286 / 286 Plt Pheresis B Leukoreduced 286 / 286 Unit [id number] Output: Urine 1225 / 1225 200 / 200 Other: # Voids 3 Date of Last Bowel Movement 06/11/18 06/11/18 06/12/18 # Bowel Movements 5 1 Result Diagrams: 06/12/18 05:00 06/12/18 05:00 Laboratory Results: Laboratory Results - last 24 hr 06/10/18 06/11/18 06/11/18 20:00 10:46 11:00 WBC 1.5 L RBC 3.06 L Hgb 8.6 L Hct 25.4 L MCV 83.1 MCH 28.1 MCHC 33.8 RDW 23.5 H Plt Count 15 L* MPV 8.0 Prelim Diff (Auto) Slide review pending Neut % (Auto) 49.1 Lymph % (Auto) 40.9 [place] % (Auto) 3.5 Eos % (Auto) 5.5 H Baso % (Auto) 1.0 Neut # (Auto) 0.7 L Lymph # (Auto) 0.6 L [place] # (Auto) 0.1 Eos # (Auto) 0.1 Baso # (Auto) 0.0 WBC Differential Manual diff final Seg Neuts % (Manual) 30 Band Neuts % (Manual) 23 H Lymphocytes % (Manual) 19 Monocytes % (Manual) 10 H Eosinophils % (Manual) 9 H Basophils % (Manual) 3 H Metamyelocytes % (Man) 3 H Blast Cells % (Manual) 3 H Abs Neuts (Manual) 0.8 L Differential Comment . Platelet Estimate Rare L Platelet Morphology Normal Sodium Potassium Chloride Carbon Dioxide Anion Gap BUN Creatinine Estimated GFR Random Glucose Calcium Total Bilirubin AST ALT Alkaline Phosphatase Total Protein Albumin Vancomycin Trough MTS Gel Crossmatch See Detail Bld Prod Order Comment 06/11/18 06/12/18 06/12/18 21:50 05:00 05:00 WBC 1.2 L RBC 2.78 L Hgb 8.0 L Hct 23.2 L MCV 83.2 MCH 28.6 MCHC 34.4 RDW 22.6 H Plt Count 23 L D MPV 8.2 Prelim Diff (Auto) Slide review pending Neut % (Auto) 49.9 Lymph % (Auto) 38.5 [place] % (Auto) 4.0 Eos % (Auto) 5.8 H Baso % (Auto) 1.8 Neut # (Auto) 0.6 L Lymph # (Auto) 0.5 L [place] # (Auto) 0.0 Eos # (Auto) 0.1 Baso # (Auto) 0.0 WBC Differential Manual diff final Seg Neuts % (Manual) 32 Band Neuts % (Manual) 15 H Lymphocytes % (Manual) 36 Monocytes % (Manual) 2 Eosinophils % (Manual) 7 H Basophils % (Manual) 3 H Metamyelocytes % (Man) Blast Cells % (Manual) 5 H Abs Neuts (Manual) 0.6 L Differential Comment . Platelet Estimate Rare L Platelet Morphology Normal Sodium 146 H Potassium 3.8 Chloride 117 H Carbon Dioxide 19.9 L Anion Gap 9 BUN 9 Creatinine 1.18 Estimated GFR 61 L Random Glucose 110 H Calcium 7.6 L Total Bilirubin 0.4 AST 15 ALT 13 Alkaline Phosphatase 47 Total Protein 6.5 Albumin 2.1 L Vancomycin Trough 18.5 H MTS Gel Crossmatch Bld Prod Order Comment Culture Results: Microbiology 06/06/18 12:04 Aerobic Blood Culture - Final Blood - Peripheral No growth in 5 days Anaerobic Blood Culture - Final No growth in 5 days 06/06/18 11:59 Aerobic Blood Culture - Final Blood - Peripheral No growth in 5 days Anaerobic Blood Culture - Final No growth in 5 days Medications: Active Medications Generic Name Dose Route Start Last Admin Trade Name Freq PRN Reason Stop Dose Admin Acetaminophen 650 mg 06/06/18 14:14 06/11/18 23:53 Tylenol PO 650 mg Q4H PRN Administration Temp > 100.4 Acetaminophen 650 mg 06/11/18 12:00 06/11/18 14:01 Tylenol PO 650 mg Q4H PRN Administration SEE LABEL COMMENTS Albuterol 1 ampul 06/06/18 14:23 06/12/18 10:21 Duoneb Neb (Prn) NEB 1 ampul Q4HR NEB PRN Administration SHORTNESS OF BREATH Atorvastatin Calcium 40 mg 06/07/18 09:00 06/12/18 10:06 Lipitor PO 40 mg DAILY [facility] Administration Diphenhydramine HCl 25 mg 06/10/18 19:31 06/10/18 23:55 Benadryl PO 25 mg Q4H PRN Administration SEE LABEL COMMENTS Diphenhydramine HCl 25 mg 06/11/18 11:00 06/11/18 14:01 Benadryl PO 25 mg Q4H PRN Administration SEE LABEL COMMENTS Diphenoxylate HCl/Atropine 1 tab 06/11/18 12:00 06/12/18 10:06 Lomotil PO 1 tab Q6H PRN Administration DIARRHEA Ferrous Sulfate 325 mg 06/07/18 09:00 06/12/18 10:07 Ferosul PO 325 mg DAILY [facility] Administration Guaifenesin/Dextromethorphan 10 ml 06/06/18 17:12 06/11/18 11:29 Robitussin Dm Liq PO 10 ml Q4H PRN Administration COUGH Azithromycin 250 mg/ Sodium 250 mls @ 250 mls/hr 06/06/18 16:00 06/11/18 19: 33 Chloride IV.SIG Infused Q24H [facility] Infusion Cefepime HCl 2,000 mg/ Sodium 100 mls @ 200 mls/hr 06/07/18 02:00 06/12/18 02 :54 Chloride IV.SIG Infused Q12H [facility] Infusion Sodium Chloride 1,000 mls @ 100 mls/hr 06/06/18 14:15 06/12/18 08:00 Ns Inj IV.CONT 100 mls/hr .Q10H [facility] Administration Vancomycin HCl 1,500 mg/ 515 mls @ 250 mls/hr 06/08/18 22:00 06/12/18 01:00 Sodium Chloride IV.SIG Infused Q24H [facility] Infusion Megestrol Acetate 400 mg 06/09/18 18:00 06/12/18 10:06 Megace Liq PO 400 mg DAILY [facility] Administration Metoprolol Succinate 25 mg 06/07/18 09:00 06/12/18 10:06 Toprol Xl PO 25 mg DAILY [facility] Administration Sodium Chloride 2 ml 06/06/18 21:00 06/12/18 10:06 Ns Flush IV.FLUSH Not Given BID [facility] Objective Remarks: GENERAL: Well-nourished, well-developed elderly male patient, in mild distress. SKIN: Pale, warm and dry. HEAD: Normocephalic. EYES: No scleral icterus. No injection or drainage. ENT: Dried blood noted to bilateral nares, petechiae noted to soft palate. Thrush to buccal mucosa. NECK: Supple, trachea midline. CARDIOVASCULAR: Regular rate and rhythm without murmurs. RESPIRATORY: Posterior breath sounds equal bilaterally. Expiratory wheezing noted to right lower lobe. Tachypneic. No accessory muscle use. O2 via nasal cannula in place. GASTROINTESTINAL: Abdomen soft, non-tender, nondistended. EXTREMITIES: No cyanosis, or edema. MUSCULOSKELETAL: Adequate muscle tone. NEUROLOGICAL: No obvious focal deficit. Awake, alert, and oriented x3. PSYCHIATRIC: Appropriate mood and affect; insight and judgment normal. Assessment/Plan - Plan This is a pleasant 72-year-old male with history of high-grade myelodysplastic syndrome. His most recent cycle of Dacogen was given under the care of Dr. Mckeon in April 2018. He was admitted 2 weeks ago with high-grade fever in the setting of neutropenia and was eventually discharged. He has come back with what appears to be failure to thrive. Plan: 1. High-grade myelodysplastic syndrome, under the care of Dr. Mckeon. 2. Neutropenia, T-max 101.4 F. Will obtain blood cultures, one set peripheral and one sent from line, urinalysis with culture and chest x-ray. He continues on azithromycin and cefepime per infectious disease. Continue neutropenic precautions. 3. Pancytopenia, status post 1 unit PRBCs for hemoglobin of 6.9 g/dL 06/10/2018 , hemoglobin 8.0 g/dL today. Status post transfusion of 1 unit platelets yesterday for a platelet count of 15,000, platelet count increased to 23,000 today. No signs of active bleeding currently. Monitor for signs of bleeding. 4. Thrush, will start clotrimazole troches. 4. Diarrhea, continue Lomotil. 5. Patient agreeable to plan of care, continue supportive measures.
[2018-06-12 12:03] LABS: Bilirubin,Urine Negative (Negative); Clarity,Urine Clear (Clear); Color,Urine Colorless (Yellw/Straw); Glucose,Urine (UA) Negative (Negative); Leukocyte Esterase,Urine Negative (Negative); Mucus,Urine Few /lpf (Occasional); Nitrite,Urine Negative (Negative); Specific Gravity,Urine 1.002 (1.002-1.035); Squamous Epithelial Cell,Urine <1 /hpf (0-5)
[2018-06-12] MEDS: Clotrimazole 10 MG Troche BUCCAL SCH ×3 (13:14→21:41)
--- NOTE | 2018-06-12 14:17 | P.PNIM ---
Subjective Interval history: With temps 101, repeat blood cx, cont abx, infectious disease following. Patient is at the margin of the bed says he feels tired and with some shortness of breath, received nebulizers. Not coughing much. With chills. Says appetite is a little bit better however is not eating much. No abdominal pain. With diarrhea however C. difficile negative. Physical Exam Vital signs: Vital Signs 06/11/18 14:56 06/11/18 15:14 06/11/18 20:00 Temperature 99.9 F H 98.8 F 100.3 F H Pulse Rate 82 87 108 H Respiratory Rate 20 20 24 Blood Pressure 125/61 155/68 H 153/69 H Pulse Oximetry 95 93 L 92 L 06/11/18 23:46 06/12/18 00:41 06/12/18 02:15 Temperature 101.4 F H 98.4 F Pulse Rate 103 H 93 H Respiratory Rate 28 H 23 Blood Pressure 151/68 H Pulse Oximetry 90 L 06/12/18 04:00 06/12/18 10:17 06/12/18 10:23 Temperature 97.5 F L 97.6 F Pulse Rate 95 H 99 H 98 H Respiratory Rate 24 24 24 Blood Pressure 133/60 158/71 H Pulse Oximetry 97 97 94 L 06/12/18 13:00 Temperature 98.6 F Pulse Rate 101 H Respiratory Rate 24 Blood Pressure 161/71 H Pulse Oximetry 94 L Intake & Output 06/11/18 06/12/18 06/12/18 18:59 06:59 18:59 Intake Total 2466 / 2466 2065 / 2065 1000 / 1000 Output Total 1225 / 1225 200 / 200 Balance 1241 / 1241 1865 / 1865 1000 / 1000 Weight 88 kg Intake: IV 1100 / 1100 865 / 865 1000 / 1000 NS Inj 1,000 ML @ 100 mls/hr IV 1000 / 1000 1000 / 1000 .CONT .Q10H [facility] Rx#:[id number] Azithromycin Inj 250 MG In NS 250 / 250 Inj 250 ML @ 250 mls/hr IV.SIG Q24H [facility] Rx#:[id number] Maxipime Inj 2,000 MG In NS Inj 100 / 100 100 / 100 100 ML @ 200 mls/hr IV.SIG Q12H [facility] Rx#:[id number] Vancomycin Inj 1,500 MG In NS 515 / 515 Inj 500 ML @ 250 mls/hr IV.SIG Q24H [facility] Rx#:[id number] Oral 1080 / 1080 1200 / 1200 Intake (Blood Product) Amt 286 / 286 Plt Pheresis B Leukoreduced 286 / 286 Unit [id number] Output: Urine 1225 / 1225 200 / 200 Other: # Voids 3 Date of Last Bowel Movement 06/11/18 06/11/18 06/12/18 # Bowel Movements 5 1 Narrative: GENERAL: Well-nourished well-developed ill-appearing elderly male appears in nad. CARDIOVASCULAR: Regular rate and rhythm. RESPIRATORY: No accessory muscle use. Few bilateral crackles, no wheezes, no rhonchi GASTROINTESTINAL: Abdomen soft, non-tender, nondistended. Normoactive bowel sounds MUSCULOSKELETAL: Extremities without clubbing, cyanosis, or edema. No obvious deformities. NEUROLOGICAL: Awake and alert person place and time. No obvious cranial nerve deficits. Motor grossly within normal limits. Five out of 5 muscle strength in the arms and legs. Normal speech. PSYCHIATRIC: Flat affect. 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 Sepsis resolving Follow-up with blood cultures, UA unremarkable Due to recent hospitalization and course of antibiotics, will consult infectious disease for further recommendations IV cefepime increased to 2 g every 8 hours per infectious disease, continue azithromycin continue vancomycin IV per ID recommendations following Diarrhea. C. difficile is negative 06/09 . Add Imodium. Acute kidney injury superimposed on chronic kidney disease stage IIlikely due to poor oral intake, organ dysfunction due to sepsis-IV fluid hydration, avoid nephrotoxins, hold home TIESHA inhibitor due to also superimposed hypotension Elevated troponin Ipatient has no complaint of chest pain this may be due to his acute kidney injury, will trend troponin I due to history of CAD and follow- up clinically. High-grade myelodysplastic syndromeconsult Dr. Purdy who had seen the patient during the previous hospitalization. Pancytopenia -worsening platelets likely due to sepsis and myelodysplastic syndrome, monitor, transfusions as needed, if platelets less than 15 K. Transfuse if hemoglobin drops less than 7.5 per oncology recommendation Transfuse 1U PLT on 06/11 Hyponatremia due to hypovolemianormal saline DO NOT RESUSCITATE status Physical therapy evaluation Discussed with the patient, nurse, Dr. Corona infectious disease Discharge plan: Discharge when improved and cleared by infectious disease patient still on IV antibiotics. PLT transfused 06/11 Patient to follow-up with his oncology Dr. Mckeon as outpatient. 06/12 patient was noted with fevers, antibiotic change per ID Progress Note: Quality VTE Deep Vein Thrombosis/Pulmonary Embolism Present on Admission: No
--- NOTE | 2018-06-12 16:37 | P.PNID ---
Subjective Remarks: ANC 600 + fever last night 101.4 no fever today blood c lx repeated co diarrhea, c.diff negaive 06/09 GFR >60 Antibiotics: vanco iv cefepime azithro Allergies/Adverse Reactions: Allergies No Known Allergies Allergy (Verified 06/06/18 14:51) Objective Vital Signs 06/11/18 20:00 06/11/18 23:46 06/12/18 00:41 Temperature 100.3 F H 101.4 F H Pulse Rate 108 H 103 H 93 H Respiratory Rate 24 28 H 23 Blood Pressure 153/69 H 151/68 H Pulse Oximetry 92 L 90 L 06/12/18 02:15 06/12/18 04:00 06/12/18 10:17 Temperature 98.4 F 97.5 F L 97.6 F Pulse Rate 95 H 99 H Respiratory Rate 24 24 Blood Pressure 133/60 158/71 H Pulse Oximetry 97 97 06/12/18 10:23 06/12/18 13:00 Temperature 98.6 F Pulse Rate 98 H 101 H Respiratory Rate 24 24 Blood Pressure 161/71 H Pulse Oximetry 94 L 94 L Intake & Output 06/11/18 06/12/18 06/12/18 18:59 06:59 18:59 Intake Total 2466 / 2466 2065 / 2065 1000 / 1000 Output Total 1225 / 1225 200 / 200 Balance 1241 / 1241 1865 / 1865 1000 / 1000 Weight 88 kg Intake: IV 1100 / 1100 865 / 865 1000 / 1000 NS Inj 1,000 ML @ 100 mls/hr IV 1000 / 1000 1000 / 1000 .CONT .Q10H [facility] Rx#:[id number] Azithromycin Inj 250 MG In NS 250 / 250 Inj 250 ML @ 250 mls/hr IV.SIG Q24H [facility] Rx#:[id number] Maxipime Inj 2,000 MG In NS Inj 100 / 100 100 / 100 100 ML @ 200 mls/hr IV.SIG Q12H [facility] Rx#:[id number] Vancomycin Inj 1,500 MG In NS 515 / 515 Inj 500 ML @ 250 mls/hr IV.SIG Q24H [facility] Rx#:[id number] Oral 1080 / 1080 1200 / 1200 Intake (Blood Product) Amt 286 / 286 Plt Pheresis B Leukoreduced 286 / 286 Unit [id number] Output: Urine 1225 / 1225 200 / 200 Other: # Voids 3 Date of Last Bowel Movement 06/11/18 06/11/18 06/12/18 # Bowel Movements 5 1 06/12/18 13:30 Blood - Line Aerobic Blood Culture - Pending 06/12/18 13:30 Blood - Line Anaerobic Blood Culture - Pending 06/12/18 11:45 Clean Catch Urine Urine Culture - Pending 06/06/18 12:04 Blood - Peripheral Aerobic Blood Culture - Final No growth in 5 days 06/06/18 12:04 Blood - Peripheral Anaerobic Blood Culture - Final No growth in 5 days 06/06/18 11:59 Blood - Peripheral Aerobic Blood Culture - Final No growth in 5 days 06/06/18 11:59 Blood - Peripheral Anaerobic Blood Culture - Final No growth in 5 days Lab - Hematology Results 06/10/18 06/11/18 06/12/18 15:05 11:00 05:00 WBC 1.5 L 1.2 L RBC 3.06 L 2.78 L Hgb 8.6 L 8.0 L Hct 25.4 L 23.2 L MCV 83.1 83.2 MCH 28.1 28.6 MCHC 33.8 34.4 RDW 23.5 H 22.6 H Plt Count 15 L* 23 L D MPV 8.0 8.2 Prelim Diff (Auto) Slide review pending Slide review pending Neut % (Auto) 49.1 49.9 Lymph % (Auto) 40.9 38.5 [place] % (Auto) 3.5 4.0 Eos % (Auto) 5.5 H 5.8 H Baso % (Auto) 1.0 1.8 Neut # (Auto) 0.7 L 0.6 L Lymph # (Auto) 0.6 L 0.5 L [place] # (Auto) 0.1 0.0 Eos # (Auto) 0.1 0.1 Baso # (Auto) 0.0 0.0 WBC Differential Manual diff final Manual diff final Manual diff final Seg Neuts % (Manual) 35 30 32 Band Neuts % (Manual) 14 H 23 H 15 H Lymphocytes % (Manual) 37 19 36 Monocytes % (Manual) 10 H 2 Eosinophils % (Manual) 8 H 9 H 7 H Basophils % (Manual) 3 H 3 H 3 H Metamyelocytes % (Man) 3 H Blast Cells % (Manual) 3 H 3 H 5 H Abs Neuts (Manual) 0.5 L* 0.8 L 0.6 L Differential Comment . . Dohle Bodies Present H Platelet Estimate Low L Rare L Rare L Platelet Morphology Normal Normal Normal Ovalocytes 1+ H Keratocytes Occ H Lab - Chemistry Results 06/12/18 05:00 Sodium 146 H Potassium 3.8 Chloride 117 H Carbon Dioxide 19.9 L Anion Gap 9 BUN 9 Creatinine 1.18 Estimated GFR 61 L Random Glucose 110 H Calcium 7.6 L Total Bilirubin 0.4 AST 15 ALT 13 Alkaline Phosphatase 47 Total Protein 6.5 Albumin 2.1 L Imaging: ITS Impressions Chest X-Ray 06/09/18 16:57 CONCLUSION: No acute findings. Stable bilateral lung masses/opacities. Physical Exam: GENERAL: NAd chroniclally ill appearing SKIN: Warm and dry. no rash HEAD: Atraumatic. Normocephalic. EYES: Pupils equal and round. No scleral icterus. No injection or drainage. ENT: No nasal bleeding or discharge. Mucous membranes pink and moist. NECK: Trachea midline. No JVD. CARDIOVASCULAR: Regular rate and rhythm. RESPIRATORY: No accessory muscle use. Clear to auscultation. Breath sounds equal bilaterally. GASTROINTESTINAL: Abdomen soft, non-tender, nondistended. Hepatic and splenic margins not palpable. MUSCULOSKELETAL: Extremities without clubbing, cyanosis, or + mild edema. NEUROLOGICAL: Awake and alert. Non focal Normal speech. PSYCHIATRIC: calm , cooperative Assessment and Plan - Plan Myelodysplastic syndrome with resultant pancytopenia: Continue supportive care, previously received Dacogen x3 cycles. He remains cytopenic, supportive transfusions to maintain hemoglobin above 7.5 g/dL and platelet transfusion to maintain platelet count over 15,000/mcL. At previous visit I did treat him briefly with Neupogen for growth factor support for severe neutropenia. Should be noted that his most recent bone marrow biopsy from April 2018 revealed approximately 10% myeloblasts in the bone marrow. This represents a moderate reduction in absolute blast percentage which prior to initiation of Dacogen in the fall 2017 was noted to be closer to 17%. Pneumonia: PET scan fro October and chest CTA from 05/24 were dw radiologist: atypical PNA vs malignancy Diarrhea: Stool for C. difficile PCR negative History of lung cancer, prostate cancer and bladder cancer: These have been previously treated based on PET/CT imaging performed in the summer 2017 his solid tumor oncologic diagnoses are in remission. sputum clx cont cefepime, change to 2 gm Q 8 repeat blood clx cont azithromycin cont Vancomycin dw Dr Berkley calderon RN
--- NOTE | 2018-06-12 17:35 | XR ---
EXAM DATE: 06/12/2018 5:32 PM EST AGE/SEX: 72 years / Male INDICATIONS: . Short of breath. CLINICAL DATA: This is the patient's subsequent encounter. Patient reports that signs and symptoms h ave been present for 4 - 6 days and indicates a pain score of 0/10. MEDICAL/SURGICAL HISTORY: Leukemia. . . Port for chemo for leukemia, cardiac stents COMPARISON: [facility], CHEST 1V SINGLE AP, 06/09/2018. . FINDINGS: Right-sided portacatheter is present and the distal tip projects over the expected location of the SV C. There is persistent patchy parenchymal opacity greatest in the left midlung and right lung base. T here is atelectasis at the right lung base. CONCLUSION: Stable appearance of the chest with bilateral opacities. Electronically signed by: Pascual Osborne MD Board Certified Radiologist 06/12/2018 5:34 PM EST
[2018-06-12] MEDS: Azithromycin Inj 250 MG in Sodium Chlor 0.9% Inj 250 ML IV.SIG SCH (18:10)
[2018-06-12] MEDS: Vancomycin Inj 1,500 MG in Sodium Chlor 0.9% Inj 500 ML IV.SIG SCH (23:24)
[2018-06-13] MEDS ORDERED: Sodium Chloride 0.65% Nasal Spray 45 ML Bottle EACH NARE PRN (06:16)
[2018-06-13 06:25] LABS: Hematocrit 21.7 % (39.0-51.0); Hemoglobin 7.4 gm/dL (13.0-17.0); Mean Corpuscular HGB Conc 34.3 % (32.0-36.0); Mean Corpuscular Hemoglobin 28.7 pg (27.0-34.0); Mean Corpuscular Volume 83.6 fL (80.0-100.0); Mean Platelet Volume 8.1 fL (7.0-11.0); Platelet Count 25 th/mm3 (150-450); Red Blood Count 2.59 mil/mm3 (4.50-5.90); Red Cell Distribution Width 23.3 % (11.6-17.2); White Blood Count 1.4 th/mm3 (4.0-11.0)
[2018-06-13] MEDS: Clotrimazole 10 MG Troche BUCCAL SCH ×4 (07:25→21:30)
[2018-06-13] MEDS: Sod Chloride 0.9% Inj 1,000 ML IV.CONT SCH ×2 (07:42→07:43)
[2018-06-13 08:07] LABS: Blast Cells 4 % (0-0); Eosinophils 8 % (0-4); Lymphocytes 31 % (9-44); Monocytes 3 % (0-8); Platelet Morphology Normal (Normal)
[2018-06-13] MEDS: Diphenoxylate/Atropine 2.5/0.025 MG Tablet PO PRN (08:55)
[2018-06-13] MEDS: Megestrol Acetate Liq 400 MG/10 ML UDC PO SCH (08:55)
[2018-06-13] MEDS: Ferrous Sulfate 325 MG Tablet PO SCH (08:56)
--- NOTE | 2018-06-13 10:24 | P.PNONC ---
Subjective Interval history: Patient lying in bed, receiving nebulizer treatments. Mild distress noted, tachypneic. Patient reports he feels the same today as he did yesterday, having difficulty breathing. RN reports that shift production associate nurse stated she was concerned that there was blood in patient's stool as it had a coffee-ground appearance. Objective Vital Signs/Intake & Output: Vital Signs 06/12/18 10:17 06/12/18 10:23 06/12/18 13:00 Temperature 97.6 F 98.6 F Pulse Rate 99 H 98 H 101 H Respiratory Rate 24 24 24 Blood Pressure 158/71 H 161/71 H Pulse Oximetry 97 94 L 94 L 06/12/18 16:00 06/12/18 20:00 06/12/18 21:33 Temperature 99.6 F 97.2 F L Pulse Rate 102 H 98 H Respiratory Rate 18 18 Blood Pressure 147/70 H 155/72 H Pulse Oximetry 92 L 98 95 06/13/18 04:59 06/13/18 05:14 06/13/18 05:23 Temperature 97.2 F L Pulse Rate 95 H 96 H Respiratory Rate 28 H 24 Blood Pressure 158/75 H Pulse Oximetry 92 L 98 06/13/18 08:54 06/13/18 09:22 Temperature 98.3 F Pulse Rate 106 H 107 H Respiratory Rate 40 H 30 H Blood Pressure 164/75 H Pulse Oximetry 90 L 93 L Intake & Output 06/12/18 06/13/18 06/13/18 18:59 06:59 18:59 Intake Total 2500 / 2500 1565 / 1565 1000 / 1000 Output Total 2500 / 2500 1900 / 1900 1190 / 1190 Balance 0 / 0 -335 / -335 -190 / -190 Weight 88.3 kg Intake: IV 1000 / 1000 965 / 965 1000 / 1000 NS Inj 1,000 ML @ 100 mls/hr IV 1000 / 1000 1000 / 1000 .CONT .Q10H ALLY Rx#:[id number] Azithromycin Inj 250 MG In NS 250 / 250 Inj 250 ML @ 250 mls/hr IV.SIG Q24H ALLY Rx#:[id number] Maxipime Inj 2,000 MG In NS Inj 200 / 200 100 ML @ 200 mls/hr IV.SIG Q8H ALLY Rx#:[id number] Vancomycin Inj 1,500 MG In NS 515 / 515 Inj 500 ML @ 250 mls/hr IV.SIG Q24H ALLY Rx#:[id number] Oral 1500 / 1500 600 / 600 Output: Urine 2500 / 2500 1900 / 1900 1190 / 1190 Other: Date of Last Bowel Movement 06/12/18 06/12/18 # Bowel Movements 1 1 Result Diagrams: 06/13/18 05:00 06/12/18 05:00 Laboratory Results: Laboratory Results - last 24 hr 06/12/18 06/13/18 11:45 05:00 WBC 1.4 L RBC 2.59 L Hgb 7.4 L Hct 21.7 L MCV 83.6 MCH 28.7 MCHC 34.3 RDW 23.3 H Plt Count 25 L MPV 8.1 Prelim Diff (Auto) Manual diff required WBC Differential Manual diff final Seg Neuts % (Manual) 30 Band Neuts % (Manual) 21 H Lymphocytes % (Manual) 31 Monocytes % (Manual) 3 Eosinophils % (Manual) 8 H Basophils % (Manual) 3 H Blast Cells % (Manual) 4 H Abs Neuts (Manual) 0.7 L Differential Comment . Platelet Estimate Low L Platelet Morphology Normal Urine Color Colorless Urine Clarity Clear Urine pH 6.0 Ur Specific [place] 1.002 Urine Protein Negative Urine Glucose (UA) Negative Urine Ketones Negative Urine Occult Blood Moderate H Urine Nitrate Negative Urine Bilirubin Negative Urine Urobilinogen Less than 2 Ur Leukocyte Esterase Negative Urine RBC Less than 1 Ur Squamous Epith Cells <1 Urine Mucus Few H Micro UA Comment Culture not ind Ur Microscopic Review Not Reportable Culture Results: Microbiology 06/06/18 12:04 Aerobic Blood Culture - Final Blood - Peripheral No growth in 5 days Anaerobic Blood Culture - Final No growth in 5 days 06/06/18 11:59 Aerobic Blood Culture - Final Blood - Peripheral No growth in 5 days Anaerobic Blood Culture - Final No growth in 5 days Imaging Studies: Impressions Chest X-Ray 06/12/18 00:00 CONCLUSION: Stable appearance of the chest with bilateral opacities. Medications: Active Medications Generic Name Dose Route Start Last Admin Trade Name Freq PRN Reason Stop Dose Admin Acetaminophen 650 mg 06/06/18 14:14 06/11/18 23:53 Tylenol PO 650 mg Q4H PRN Administration Temp > 100.4 Acetaminophen 650 mg 06/11/18 12:00 06/11/18 14:01 Tylenol PO 650 mg Q4H PRN Administration SEE LABEL COMMENTS Albuterol 1 ampul 06/06/18 14:23 06/13/18 05:13 Duoneb Neb (Prn) NEB 1 ampul Q4HR NEB PRN Administration SHORTNESS OF BREATH Albuterol 2.5 mg 06/13/18 06:30 06/13/18 09:22 Albuterol Neb (Ally) NEB 2.5 mg Q6HR NEB ALLY Administration Atorvastatin Calcium 40 mg 06/07/18 09:00 06/13/18 08:56 Lipitor PO 40 mg DAILY ALLY Administration Clotrimazole 10 mg 06/12/18 14:00 06/13/18 07:25 Mycelex Evangelist BUCCAL Not Given 5 TIMES A DAY ALLY Diphenhydramine HCl 25 mg 06/10/18 19:31 06/10/18 23:55 Benadryl PO 25 mg Q4H PRN Administration SEE LABEL COMMENTS Diphenhydramine HCl 25 mg 06/11/18 11:00 06/11/18 14:01 Benadryl PO 25 mg Q4H PRN Administration SEE LABEL COMMENTS Diphenoxylate HCl/Atropine 1 tab 06/11/18 12:00 06/13/18 08:55 Lomotil PO 1 tab Q6H PRN Administration DIARRHEA Ferrous Sulfate 325 mg 06/07/18 09:00 06/13/18 08:56 Ferosul PO 325 mg DAILY ALLY Administration Guaifenesin/Dextromethorphan 10 ml 06/06/18 17:12 06/11/18 11:29 Robitussin Dm Liq PO 10 ml Q4H PRN Administration COUGH Azithromycin 250 mg/ Sodium 250 mls @ 250 mls/hr 06/06/18 16:00 06/12/18 19: 10 Chloride IV.SIG Infused Q24H ALLY Infusion Sodium Chloride 1,000 mls @ 100 mls/hr 06/06/18 14:15 06/13/18 07:43 Ns Inj IV.CONT 100 mls/hr .Q10H ALLY Administration Vancomycin HCl 1,500 mg/ 515 mls @ 250 mls/hr 06/08/18 22:00 06/13/18 01:30 Sodium Chloride IV.SIG Infused Q24H ALLY Infusion Cefepime HCl 2,000 mg/ Sodium 100 mls @ 200 mls/hr 06/12/18 21:00 06/13/18 05 :40 Chloride IV.SIG Infused Q8H ALLY Infusion Megestrol Acetate 400 mg 06/09/18 18:00 06/13/18 08:55 Megace Liq PO 400 mg DAILY ALLY Administration Metoprolol Succinate 25 mg 06/07/18 09:00 06/13/18 08:56 Toprol Xl PO 25 mg DAILY ALLY Administration Sodium Chloride 2 ml 06/06/18 21:00 06/12/18 23:56 Ns Flush IV.FLUSH Not Given BID ALLY Objective Remarks: GENERAL: Well-nourished, well-developed elderly male patient, in mild distress. SKIN: Pale, warm and dry. HEAD: Normocephalic. EYES: No scleral icterus. No injection or drainage. ENT: Dried blood noted to bilateral nares, petechiae noted to soft palate. Thrush to buccal mucosa. NECK: Supple, trachea midline. CARDIOVASCULAR: Regular rate and rhythm without murmurs. RESPIRATORY: Posterior breath sounds equal bilaterally. Expiratory wheezing noted to right side. Tachypneic. No accessory muscle use. O2 via nasal cannula in place. GASTROINTESTINAL: Abdomen soft, non-tender, nondistended. EXTREMITIES: No cyanosis, or edema. MUSCULOSKELETAL: Adequate muscle tone. NEUROLOGICAL: No obvious focal deficit. Awake, alert, and oriented x3. PSYCHIATRIC: Appropriate mood and affect; insight and judgment normal. Assessment/Plan - Plan This is a pleasant 72-year-old male with history of high-grade myelodysplastic syndrome. His most recent cycle of Dacogen was given under the care of Dr. Mckeon in April 2018. He was admitted 2 weeks ago with high-grade fever in the setting of neutropenia and was eventually discharged. He has come back with what appears to be failure to thrive. Plan: 1. High-grade myelodysplastic syndrome, under the care of Dr. Mckeon. 2. Neutropenia, afebrile. Blood cultures and urine culture pending. Chest x- ray unremarkable, stable appearance of the chest with bilateral opacities. He continues on azithromycin and cefepime per infectious disease. Continue neutropenic precautions. 3. Pancytopenia, status post 1 unit PRBCs for hemoglobin of 6.9 g/dL 06/10/2018 , hemoglobin 7.4 g/dL today. Status post transfusion of 1 unit platelets 2018 for a platelet count of 15,000, platelet count increased to 25,000 today. Concern for GI bleed, stool for occult blood ordered. Patient receiving humidified oxygen via nasal cannula discussed with nurse to moisturize nares. Monitor for signs of bleeding. 4. Tachypnea/ tachycardia, discussed case with attending, CTA ordered per attending. 5. Thrush, clotrimazole troches ordered. 6. Continue supportive measures.
[2018-06-13] MEDS ORDERED: LORazepam 0.5 MG Tablet PO PRN (12:25)
--- NOTE | 2018-06-13 14:34 | P.CONPAL ---
Consult Service: Palliative Care Requesting Physician: Promise Gooden Reason for Consult: a. To assist with evaluation and management of symptoms including: Dyspnea, anxiety b. To assist medical decision maker(s) with: better understanding of current medical conditions; weighing benefits/burdens of medical treatment options; making medical treatment decisions. Primary Care Provider: Vadim Myrick MD History of Present Illness History of Present Illness: Mr. Cabral is a 72-year-old male who presented to [facility] ED on 06/06/2018 for evaluation of generalized weakness. Patient is currently receiving treatment for myelodysplastic syndrome with pancytopenia. His last systemic chemotherapy was in April, with Dr. Mckeon. Restaging bone marrow biopsy showed interval decrease in bone marrow blast percent after 3 cycles of Dacogen. Patient has a history of prostate cancer status post prostatectomy, bladder cancer, lung cancer status post resection and radiation. A PET/CT imaging last summer showed his solid tumor oncologic diagnoses or in remission. Patient was hospitalized earlier this month (05/23/2018 through 05/29/2018) for management of sepsis with bilateral pneumonia Patient followed up with Dr. Mckeon post discharge; his chemotherapy was on hold at that time. Diagnostic data: * Pulse: 93, respirations 18, BP 108/52, oxygen saturation 93% on room air, oral temperature 99.8 * WBC: 2.6, hemoglobin 8.8, hematocrit 25.9, platelets 23, neutrophils 48.5% * PT: 12.7, INR 1.3, APTT 36.4 * Sodium: 137, potassium 3.9, chloride 105, carbon dioxide 22.3, glucose 86, calcium 7.9 * BUN: 20, creatinine 1.84, GFR 36 * Troponin: 0.18 * UA with mucus. No evidence of UTI * Chest x-ray with bilateral upper lobe densities. Decreasing density in the right lung base. Patient received 2 L normal saline bolus as well as vancomycin and cefepime while in the ED. He was admitted for further evaluation and medical management of pneumonia, DOM and elevated troponin. Infectious disease and oncology were consulted. Influenza negative. Blood cultures negative. Dr. 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 Patient is currently receiving IV vancomycin, cefepime and azithromycin. Infectious disease is following. Follow-up chest x-ray on 06/09/2018 showed stable bilateral lung masses/opacities. Patient was started on Megace 400 mg PO daily. Patient was transfused on 06/10/2018 with 1 unit of PRBCs for H/H of 6.9/19.9 Patient reported a bloody nose on the morning of 06/11/2018; his platelet count was 15,000. Transfused with 1 unit of platelets on 06/11/2018. Having ongoing diarrhea-C. difficile negative. Having intermittent fevers. Follow-up blood cultures and urine cultures from remain negative times 1 day. Palliative Care was consulted to assist with symptom management and to discuss with the patient/family the benefits and burdens of his current illnesses and the options regarding future care. Patient having increasing tachypnea and shortness of breath. CTA this afternoon showed bilateral effusions have increased. Right lower lobe masslike area decreased in prominence otherwise stable nodules and parenchymal infiltrates. No evidence for pulmonary embolism. Patient had received 0.25 mg Lorazepam earlier this afternoon with slight improvement in symptoms. Discussed with Dr. Gooden. Will increase Lorazepam dose to 0.5 mg every 6 hours as needed. Review of Systems other (Unobtainable due to shortness of breath) PMFSH - History History Provided By: Patient - Medical History Medical History: Medical History (Last Updated 06/13/18 @ 13:40 by LISA Downey) History of DVT (deep vein thrombosis) History of prostate cancer Anemia CAD (coronary artery disease) Chronic kidney disease GERD (gastroesophageal reflux disease) HTN (hypertension) Hyperlipemia Myelodysplastic syndrome Non-small cell carcinoma of left lung PVD (peripheral vascular disease) Presence of IVC filter Thrombocytopenia Vitamin D deficiency - Surgical History Surgical History: Surgical History (Last Reviewed 06/08/18 @ 07:22 by Roni Boudreaux) H/O heart artery stent History of prostate surgery S/P lobectomy of lung S/P right coronary artery (RCA) stent placement - Family History Family History: Family History (Last Reviewed 06/07/18 @ 18:03 by Sherrell Corona MD) Other Family history normal - Tobacco History Second Hand Smoke Exposure: No Smoking Status: Former smoker (Patient smoked 2-3 packs/day; quit in 2009.) - Alcohol History How Often Do You Have a Drink Containing Alcohol: Never - Substance Use History Substance History: No History of Abuse - Travel History Recent Travel in the [place] Within the Last 8 Weeks: No Recent Travel Out of the Country Within the Last 8 Weeks: No - Immunization History Tetanus Immunization: Unsure Medications and Allergies Active Medications: Active Medications Acetaminophen (Tylenol) 650 mg PO Q4H PRN PRN Reason: Temp > 100.4 Last Admin: 06/11/18 23:53 Dose: 650 mg Acetaminophen (Tylenol) 650 mg PO Q4H PRN PRN Reason: SEE LABEL COMMENTS Last Admin: 06/11/18 14:01 Dose: 650 mg Albuterol (Duoneb Neb (Prn)) 1 ampul NEB Q4HR NEB PRN PRN Reason: SHORTNESS OF BREATH Last Admin: 06/13/18 05:13 Dose: 1 ampul Albuterol (Albuterol Neb (Ally)) 2.5 mg NEB Q6HR NEB ALLY Last Admin: 06/13/18 09:22 Dose: 2.5 mg Atorvastatin Calcium (Lipitor) 40 mg PO DAILY ALLY Last Admin: 06/13/18 08:56 Dose: 40 mg Clotrimazole (Mycelex Evangelist) 10 mg BUCCAL 5 TIMES A DAY ALLY Last Admin: 06/13/18 07:25 Dose: Not Given Diphenhydramine HCl (Benadryl) 25 mg PO Q4H PRN PRN Reason: SEE LABEL COMMENTS Last Admin: 06/10/18 23:55 Dose: 25 mg Diphenhydramine HCl (Benadryl) 25 mg PO Q4H PRN PRN Reason: SEE LABEL COMMENTS Last Admin: 06/11/18 14:01 Dose: 25 mg Diphenoxylate HCl/Atropine (Lomotil) 1 tab PO Q6H PRN PRN Reason: DIARRHEA Last Admin: 06/13/18 08:55 Dose: 1 tab Ferrous Sulfate (Ferosul) 325 mg PO DAILY ALLY Last Admin: 06/13/18 08:56 Dose: 325 mg Guaifenesin/Dextromethorphan (Robitussin Dm Liq) 10 ml PO Q4H PRN PRN Reason: COUGH Last Admin: 06/11/18 11:29 Dose: 10 ml Azithromycin 250 mg/ Sodium (Chloride) 250 mls @ 250 mls/hr IV.SIG Q24H [facility] Last Infusion: 06/12/18 19:10 Dose: Infused Sodium Chloride (Ns Inj) 1,000 mls @ 100 mls/hr IV.CONT .Q10H [facility] Last Admin: 06/13/18 07:43 Dose: 100 mls/hr Vancomycin HCl 1,500 mg/ (Sodium Chloride) 515 mls @ 250 mls/hr IV.SIG Q24H [facility] Last Infusion: 06/13/18 01:30 Dose: Infused Cefepime HCl 2,000 mg/ Sodium (Chloride) 100 mls @ 200 mls/hr IV.SIG Q8H [facility] Last Admin: 06/13/18 12:51 Dose: 200 mls/hr Lorazepam (Ativan) 0.25 mg PO Q8H PRN PRN Reason: ANXIETY Last Admin: 06/13/18 12:51 Dose: 0.25 mg Megestrol Acetate (Megace Liq) 400 mg PO DAILY [facility] Last Admin: 06/13/18 08:55 Dose: 400 mg Metoprolol Succinate (Toprol Xl) 25 mg PO DAILY [facility] Last Admin: 06/13/18 08:56 Dose: 25 mg Miscellaneous Information ([facility] Ordered Lab Info) 0 each OTHER ONCE ONE Stop: 06/15/18 21:46 Ondansetron HCl (Zofran Inj) 4 mg IV.PUSH Q6H PRN PRN Reason: NAUSEA OR VOMITING Patient Own Medication: Mometasone- Formoterol [Dulera] 2 Puff 0 each INH Q12H [facility] Pharmacy Profile Note ([facility] Consult Pharmacy) 1 each OTHER UNSCH PRN PRN Reason: PHARMACY DOCUMENTATION Pharmacy Profile Note (Vancomycin Consult Pharmacy) 1 each OTHER UNSCH PRN PRN Reason: Pharmacy to dose Sodium Chloride (Ns Flush) 2 ml IV.FLUSH BID [facility] Last Admin: 06/12/18 23:56 Dose: Not Given Sodium Chloride (Ns Flush) 2 ml IV.FLUSH PRN PRN PRN Reason: FLUSH AFTER USING IV ACCESS Sodium Chloride ([place] Nasal [place]) 2 spray EACH NARE Q4H PRN PRN Reason: dry nose Allergies Allergy/AdvReac Type Severity Reaction Status Date / Time No Known Allergies Allergy Verified 06/06/18 14:51 Home Medications Medication Instructions Recorded Confirmed Type amlodipine 10 mg PO DAILY 01/16/18 06/06/18 History atorvastatin 40 mg PO DAILY 01/16/18 06/06/18 History benazepril 40 mg PO DAILY 01/16/18 06/06/18 History cholecalciferol (vitamin D3) 5,000 unit PO DAILY 01/16/18 06/06/18 History [Vitamin D3] cyanocobalamin (vitamin B-12) 5,000 mcg SUBLINGUAL DAILY 01/16/18 06/06/18 History [Vitamin B-12] ferrous sulfate 325 mg PO DAILY 01/16/18 06/06/18 History hydrochlorothiazide 25 mg PO DAILY 01/16/18 06/06/18 History metoprolol succinate 100 mg PO DAILY 01/16/18 06/06/18 History mometasone-formoterol [Dulera] 2 puff INHALATION Q12H 01/16/18 06/06/18 History niacin 1,000 mg PO DAILY 01/16/18 06/06/18 History Advance Directives Today's verbally stated goals: Goals aggressive up to the point of cardiopulmonary resuscitation. Family/friends goals: Goals aggressive up to the point of cardiopulmonary resuscitation. Ethical and Legal Issues: No known ethical or legal issues at this time. Physical Exam Vital Signs: Vital Signs - 24 hr 06/12/18 16:00 06/12/18 20:00 06/12/18 21:33 Temperature 99.6 F 97.2 F L Pulse Rate 102 H 98 H Respiratory Rate 18 18 Blood Pressure 147/70 H 155/72 H Pulse Oximetry 92 L 98 95 06/13/18 04:59 06/13/18 05:14 06/13/18 05:23 Temperature 97.2 F L Pulse Rate 95 H 96 H Respiratory Rate 28 H 24 Blood Pressure 158/75 H Pulse Oximetry 92 L 98 06/13/18 08:54 06/13/18 09:22 Temperature 98.3 F Pulse Rate 106 H 107 H Respiratory Rate 40 H 30 H Blood Pressure 164/75 H Pulse Oximetry 90 L 93 L I&O: Intake & Output 06/11/18 06/12/18 06/13/18 06/14/18 06:59 06:59 06:59 06:59 Intake Total 6218 / 6218 4531 / 4531 4065 / 4065 1000 / 1000 Output Total 4925 / 4925 1425 / 1425 4400 / 4400 1190 / 1190 Balance 1293 / 1293 3106 / 3106 -335 / -335 -190 / -190 Weight 88.2 kg 88 kg 88.3 kg Physical Exam: CONSTITUTIONAL/GENERAL: This is an adequately nourished, chronically ill- appearing patient experiencing some shortness of breath TUBES/LINES/DRAINS: PIV,nasal cannula SKIN: No jaundice, rashes, or lesions. No wounds seen anteriorly. Skin temperature appropriate. Not diaphoretic. HEAD: Atraumatic. Normocephalic. EYES: Pupils equal and round and reactive. Extraocular motions intact. No scleral icterus. No injection or drainage. Fundi not examined. ENT: Hearing grossly normal. Nose without bleeding or purulent drainage. NECK: Trachea midline. Supple, nontender. No palpable thyroid enlargement or nodularity. CARDIOVASCULAR: Regular rate and rhythm without murmurs, gallops, or rubs. No JVD. Peripheral pulses symmetric. RESPIRATORY/CHEST: Tachypneic. Breath sounds diminished bilaterally. GASTROINTESTINAL: Abdomen soft, non-tender, nondistended. No guarding. Bowel sounds present. GENITOURINARY: Without palpable bladder distension. MUSCULOSKELETAL: Extremities without clubbing or cyanosis. 1+ pedal edema bilaterally LYMPHATICS: No palpable cervical or supraclavicular adenopathy. NEUROLOGICAL: Awake and alert. Answers questions. Follows commands. Moves all extremities. PSYCHIATRIC: Mild anxiety noted Diagnostic Tests Laboratory: Laboratory Results - last 72 hr 06/10/18 06/10/18 06/10/18 15:05 15:05 20:00 WBC 1.1 L RBC 2.45 L Hgb 6.9 L* Hct 19.9 L* MCV 81.0 D MCH 28.2 MCHC 34.8 RDW 25.2 H Plt Count 18 L* MPV 8.0 Prelim Diff (Auto) Slide review pending Neut % (Auto) 50.9 Lymph % (Auto) 37.9 [place] % (Auto) 4.5 Eos % (Auto) 5.5 H Baso % (Auto) 1.2 Neut # (Auto) 0.6 L Lymph # (Auto) 0.4 L [place] # (Auto) 0.1 Eos # (Auto) 0.1 Baso # (Auto) 0.0 WBC Differential Manual diff final Seg Neuts % (Manual) 35 Band Neuts % (Manual) 14 H Lymphocytes % (Manual) 37 Monocytes % (Manual) Eosinophils % (Manual) 8 H Basophils % (Manual) 3 H Metamyelocytes % (Man) Blast Cells % (Manual) 3 H Abs Neuts (Manual) 0.5 L* Differential Comment . Dohle Bodies Present H Platelet Estimate Low L Platelet Morphology Normal Ovalocytes 1+ H Keratocytes Occ H Sodium 141 Potassium 4.2 Chloride 112 H Carbon Dioxide 21.4 Anion Gap 8 BUN 10 Creatinine 1.24 Estimated GFR 57 L Random Glucose 110 H Calcium 7.8 L Total Bilirubin 0.5 AST 18 ALT 14 Alkaline Phosphatase 44 L Total Protein 6.4 Albumin 2.1 L Urine Color Urine Clarity Urine pH Ur Specific [place] Urine Protein Urine Glucose (UA) Urine Ketones Urine Occult Blood Urine Nitrate Urine Bilirubin Urine Urobilinogen Ur Leukocyte Esterase Urine RBC Ur Squamous Epith Cells Urine Mucus Micro UA Comment Ur Microscopic Review Vancomycin Trough Blood Type O Negative Antibody Screen Negative MTS Gel Crossmatch See Detail Bld Prod Order Comment 06/11/18 06/11/18 06/11/18 10:46 11:00 21:50 WBC 1.5 L RBC 3.06 L Hgb 8.6 L Hct 25.4 L MCV 83.1 MCH 28.1 MCHC 33.8 RDW 23.5 H Plt Count 15 L* MPV 8.0 Prelim Diff (Auto) Slide review pending Neut % (Auto) 49.1 Lymph % (Auto) 40.9 [place] % (Auto) 3.5 Eos % (Auto) 5.5 H Baso % (Auto) 1.0 Neut # (Auto) 0.7 L Lymph # (Auto) 0.6 L [place] # (Auto) 0.1 Eos # (Auto) 0.1 Baso # (Auto) 0.0 WBC Differential Manual diff final Seg Neuts % (Manual) 30 Band Neuts % (Manual) 23 H Lymphocytes % (Manual) 19 Monocytes % (Manual) 10 H Eosinophils % (Manual) 9 H Basophils % (Manual) 3 H Metamyelocytes % (Man) 3 H Blast Cells % (Manual) 3 H Abs Neuts (Manual) 0.8 L Differential Comment . Dohle Bodies Platelet Estimate Rare L Platelet Morphology Normal Ovalocytes Keratocytes Sodium Potassium Chloride Carbon Dioxide Anion Gap BUN Creatinine Estimated GFR Random Glucose Calcium Total Bilirubin AST ALT Alkaline Phosphatase Total Protein Albumin Urine Color Urine Clarity Urine pH Ur Specific [place] Urine Protein Urine Glucose (UA) Urine Ketones Urine Occult Blood Urine Nitrate Urine Bilirubin Urine Urobilinogen Ur Leukocyte Esterase Urine RBC Ur Squamous Epith Cells Urine Mucus Micro UA Comment Ur Microscopic Review Vancomycin Trough 18.5 H Blood Type Antibody Screen MTS Gel Crossmatch Bld Prod Order Comment 06/12/18 06/12/18 06/12/18 05:00 05:00 11:45 WBC 1.2 L RBC 2.78 L Hgb 8.0 L Hct 23.2 L MCV 83.2 MCH 28.6 MCHC 34.4 RDW 22.6 H Plt Count 23 L D MPV 8.2 Prelim Diff (Auto) Slide review pending Neut % (Auto) 49.9 Lymph % (Auto) 38.5 [place] % (Auto) 4.0 Eos % (Auto) 5.8 H Baso % (Auto) 1.8 Neut # (Auto) 0.6 L Lymph # (Auto) 0.5 L [place] # (Auto) 0.0 Eos # (Auto) 0.1 Baso # (Auto) 0.0 WBC Differential Manual diff final Seg Neuts % (Manual) 32 Band Neuts % (Manual) 15 H Lymphocytes % (Manual) 36 Monocytes % (Manual) 2 Eosinophils % (Manual) 7 H Basophils % (Manual) 3 H Metamyelocytes % (Man) Blast Cells % (Manual) 5 H Abs Neuts (Manual) 0.6 L Differential Comment . Dohle Bodies Platelet Estimate Rare L Platelet Morphology Normal Ovalocytes Keratocytes Sodium 146 H Potassium 3.8 Chloride 117 H Carbon Dioxide 19.9 L Anion Gap 9 BUN 9 Creatinine 1.18 Estimated GFR 61 L Random Glucose 110 H Calcium 7.6 L Total Bilirubin 0.4 AST 15 ALT 13 Alkaline Phosphatase 47 Total Protein 6.5 Albumin 2.1 L Urine Color Colorless Urine Clarity Clear Urine pH 6.0 Ur Specific [place] 1.002 Urine Protein Negative Urine Glucose (UA) Negative Urine Ketones Negative Urine Occult Blood Moderate H Urine Nitrate Negative Urine Bilirubin Negative Urine Urobilinogen Less than 2 Ur Leukocyte Esterase Negative Urine RBC Less than 1 Ur Squamous Epith Cells <1 Urine Mucus Few H Micro UA Comment Culture not ind Ur Microscopic Review Not Reportable Vancomycin Trough Blood Type Antibody Screen MTS Gel Crossmatch Bld Prod Order Comment 06/13/18 05:00 WBC 1.4 L RBC 2.59 L Hgb 7.4 L Hct 21.7 L MCV 83.6 MCH 28.7 MCHC 34.3 RDW 23.3 H Plt Count 25 L MPV 8.1 Prelim Diff (Auto) Manual diff required Neut % (Auto) Lymph % (Auto) [place] % (Auto) Eos % (Auto) Baso % (Auto) Neut # (Auto) Lymph # (Auto) [place] # (Auto) Eos # (Auto) Baso # (Auto) WBC Differential Manual diff final Seg Neuts % (Manual) 30 Band Neuts % (Manual) 21 H Lymphocytes % (Manual) 31 Monocytes % (Manual) 3 Eosinophils % (Manual) 8 H Basophils % (Manual) 3 H Metamyelocytes % (Man) Blast Cells % (Manual) 4 H Abs Neuts (Manual) 0.7 L Differential Comment . Dohle Bodies Platelet Estimate Low L Platelet Morphology Normal Ovalocytes Keratocytes Sodium Potassium Chloride Carbon Dioxide Anion Gap BUN Creatinine Estimated GFR Random Glucose Calcium Total Bilirubin AST ALT Alkaline Phosphatase Total Protein Albumin Urine Color Urine Clarity Urine pH Ur Specific [place] Urine Protein Urine Glucose (UA) Urine Ketones Urine Occult Blood Urine Nitrate Urine Bilirubin Urine Urobilinogen Ur Leukocyte Esterase Urine RBC Ur Squamous Epith Cells Urine Mucus Micro UA Comment Ur Microscopic Review Vancomycin Trough Blood Type Antibody Screen MTS Gel Crossmatch Bld Prod Order Comment Result Diagrams: 06/13/18 05:00 06/12/18 05:00 Microbiology: Microbiology 06/12/18 11:45 Urine Culture - Preliminary Clean Catch Urine No growth in 24 hours 06/12/18 19:30 Aerobic Blood Culture - Preliminary Blood - Peripheral No growth in 1 day Anaerobic Blood Culture - Preliminary No growth in 1 day 06/12/18 13:30 Aerobic Blood Culture - Preliminary Blood - Line No growth in 1 day Anaerobic Blood Culture - Preliminary No growth in 1 day 06/06/18 12:04 Aerobic Blood Culture - Final Blood - Peripheral No growth in 5 days Anaerobic Blood Culture - Final No growth in 5 days 06/06/18 11:59 Aerobic Blood Culture - Final Blood - Peripheral No growth in 5 days Anaerobic Blood Culture - Final No growth in 5 days Imaging: Chest X-Ray 06/12/18 00:00 CONCLUSION: Stable appearance of the chest with bilateral opacities. Chest CTA 06/13/18 12:29 CONCLUSION: 1. Bilateral effusions are increased. 2. Right lower lobe masslike areas decreased in prominence otherwise stable nodules and parenchymal infiltrates. 3. No evidence for pulmonary embolism. Patient/Family Conference Present at Family Conference: Met with patient and his at bedside Issues Discussed: * Palliative care role, purpose, approach * Additional medical, psychosocial, and spiritual history * Patients general health, functional status, and cognitive changes in the months leading up to the current hospitalization * Patient/family understanding of the current medical problems * Patient/family understanding of prognosis * Patients goals of care as best understood from advance directives and/or conversations and/or values * Current medical treatment options and benefits/burdens of those options * Likely scenarios comparing ongoing aggressive care with a transition to comfort measures only * Questions answered to the best of my ability * Palliative care contact information provided Assessment and Plan - Disease Oriented Problem List (1) Myelodysplastic syndrome (2) Sepsis (3) Pancytopenia (4) Pneumonia (5) COPD (chronic obstructive pulmonary disease) (6) Acute kidney injury (7) Elevated troponin Pertinent Non-Medical Issues: Psychosocial: Patient is originally from [facility] moving to the [facility] in 1983. Patient was living in [place] and moved to [place] in 2014. 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 Patient has been twice. He has been to his current for approximately 21 years. He has 2 adult children. Spiritual: Taoist kandis Legal: Ethical issues impacting care: No known ethical issues impacting care at this time. Important Contacts: Marianna Cabral, : [phone] Code Status: No Code DNR Plan: * NO CODE/DNR * Per [place] statutes in the absence of written advanced directives healthcare proxy decision making would fall to the patient's , Marianna. * Goals aggressive up to the point of cardiopulmonary hesitation * Discussed patient with Dr. Berkley Lombardi APRN and RN ([place]) * Palliative care contact information provided to the patient's . * Symptom management-dyspnea: Former smoker with a history of smoking 2-3 packs/ day. Patient was admitted earlier this month for management of sepsis with pneumonia. Patient having increasing tachypnea and shortness of breath. CTA this afternoon showed bilateral effusions have increased. Right lower lobe masslike area decreased in prominence otherwise stable nodules and parenchymal infiltrates. No evidence for pulmonary embolism. Chest x-ray on admission showed bilateral upper lobe densities. Currently on PRN/scheduled albuterol nebulizers, PRN Robitussin DM and IV antibiotics. * Symptom management-anxiety: Multifactoral. Contributing factors include dyspnea, hypoxia, fear, hospitalization, loss of independence. Patient had received 0.25 mg Lorazepam earlier this afternoon with slight improvement in symptoms. Discussed with Dr. Gooden. Will increase Lorazepam dose to 0.5 mg every 6 hours as needed. * Palliative care will continue to follow this patient to establish stress, assist with symptom management and clarification of medical treatment goals. Appreciation Thank you for the opportunity to participate in the care of Jeanine Cabral. Attestation Attestation: To help prompt me to consider important information that might be impacting today's encounter and assessment, information from prior notes written by myself or my colleagues may have been "brought forward" into today's note. My signature on this note, however, is an attestation that I personally performed the exam, history, and/or decision-making noted today, and, unless otherwise indicated, the interactions with patient, family, and staff as well as the review of records all occurred today. I also attest that the listed assessment and stated plan reflect my best clinical judgment today based on the combination of historical information, prior notes, and today's exam/ interactions. When time spent is documented, it refers only to time spent today by the signer, or if indicated, combined time spent today by collaborating physician/nurse practitioner.
--- NOTE | 2018-06-13 15:16 | CT ---
EXAM DATE: 06/13/2018 3:08 PM EST AGE/SEX: 72 years / Male INDICATIONS: Shortness of breath CLINICAL DATA: This is the patient's initial encounter. Patient reports that signs and symptoms have been present for 1 day and indicates a pain score of 0/10. MEDICAL/SURGICAL HISTORY: Carcinoma, prostatic. Carcinoma, lung. Chronic kidney disease. DVT Hyp ertension PVD Coronary artery stent. RADIATION DOSE: 21.65 CTDI (mGy) COMPARISON: [facility] [place], CHEST 2V PA&LAT, 06/12/2018. [facility] [place], CTA PULMONARY W CONTRAST W 3D, 05/24/2018. . TECHNIQUE: Volumetric scanning was performed using a multi-row detector CT scanner during bolus infu cristina of 74 ml Omnipaque 350 (iohexol) nonionic water-soluble contrast as a single exam dose. The cheo a was post processed with a variety of visualization algorithms including full volume maximum intensi ty projection and sliding thin slab reformation. Using automated exposure control and adjustment of the mA and/or kV according to patient size, radiation dose was kept as low as reasonably achievable t o obtain optimal diagnostic quality images. DICOM format image data is available electronically for review and comparison. FINDINGS: Port catheter is seen as before. There are moderate bilateral pleural effusions. Coronary artery calc ification, and atherosclerotic calcification of the aorta is noted. There is adenopathy in the medias tinum, which is unchanged with mildly prominent prevascular, right paratracheal, subcarinal and right hilar adenopathy identified. The subsegmental pulmonary arterial branches are poorly opacified secon kadi to timing of the contrast bolus. There is no obvious pulmonary embolism. There is focal consolid ative masslike opacity with air bronchograms in the left upper lobe which is unchanged, diffuse inter stitial prominence, right lower lobe nodule and patchy consolidative opacities again seen. The right lower lobe masslike area of consolidation is decreased in prominence. Right upper lobe nodule stable on image 34 as well as right upper lobe nodule on image 30. The pleural effusions have increased. Per sistent abnormal right apical consolidative opacity. CONCLUSION: 1. Bilateral effusions are increased. 2. Right lower lobe masslike areas decreased in prominence otherwise stable nodules and parenchymal infiltrates. 3. No evidence for pulmonary embolism. Electronically signed by: Pascual Osborne MD Board Certified Radiologist 06/13/2018 3:15 PM EST
--- NOTE | 2018-06-13 15:24 | P.PNIM ---
Subjective Interval history: The patient is in bed appears sob, now requiring 6L by NC patient doesn't want the mask. Patient feels very weak. He is also tachycardic. Not eating. No fever or chills overnight. No n/v/d/c. Denies chest pain. Physical Exam Vital signs: Vital Signs 06/12/18 16:00 06/12/18 20:00 06/12/18 21:33 Temperature 99.6 F 97.2 F L Pulse Rate 102 H 98 H Respiratory Rate 18 18 Blood Pressure 147/70 H 155/72 H Pulse Oximetry 92 L 98 95 06/13/18 04:59 06/13/18 05:14 06/13/18 05:23 Temperature 97.2 F L Pulse Rate 95 H 96 H Respiratory Rate 28 H 24 Blood Pressure 158/75 H Pulse Oximetry 92 L 98 06/13/18 08:54 06/13/18 09:22 Temperature 98.3 F Pulse Rate 106 H 107 H Respiratory Rate 40 H 30 H Blood Pressure 164/75 H Pulse Oximetry 90 L 93 L Intake & Output 06/12/18 06/13/18 06/13/18 18:59 06:59 18:59 Intake Total 2500 / 2500 1565 / 1565 1100 / 1100 Output Total 2500 / 2500 1900 / 1900 1190 / 1190 Balance 0 / 0 -335 / -335 -90 / -90 Weight 88.3 kg Intake: IV 1000 / 1000 965 / 965 1100 / 1100 NS Inj 1,000 ML @ 100 mls/hr IV 1000 / 1000 1000 / 1000 .CONT .Q10H D[facility]ON Rx#:[id number] Azithromycin Inj 250 MG In NS 250 / 250 Inj 250 ML @ 250 mls/hr IV.SIG Q24H D[facility]ON Rx#:[id number] Maxipime Inj 2,000 MG In NS Inj 200 / 200 100 / 100 100 ML @ 200 mls/hr IV.SIG Q8H D[facility]ON Rx#:[id number] Vancomycin Inj 1,500 MG In NS 515 / 515 Inj 500 ML @ 250 mls/hr IV.SIG Q24H D[facility]ON Rx#:[id number] Oral 1500 / 1500 600 / 600 Output: Urine 2500 / 2500 1900 / 1900 1190 / 1190 Other: Date of Last Bowel Movement 06/12/18 06/12/18 # Bowel Movements 1 1 Narrative: GENERAL: Well-nourished well-developed chronically ill-appearing elderly male, with shortness of breath, anxious. CARDIOVASCULAR: tachycardic. Regular rate and rhythm. RESPIRATORY: No accessory muscle use. Patient is sort of breath. No crackles, no wheezes, no rhonchi. GASTROINTESTINAL: Abdomen soft, non-tender, nondistended. Normoactive bowel sounds MUSCULOSKELETAL: Extremities without clubbing, cyanosis. 1+ bilat edema. NEUROLOGICAL: Awake and alert person place and time. No obvious cranial nerve deficits. Motor grossly within normal limits. Five out of 5 muscle strength in the arms and legs. Normal speech. SKIN: pale. No purpura. PSYCHIATRIC: Flat affect. Anxious. Results Labs CBC & Chem 7: 06/13/18 05:00 06/12/18 05:00 Labs: Microbiology 06/12/18 11:45 Clean Catch Urine Urine Culture - Preliminary No growth in 24 hours 06/12/18 19:30 Blood - Peripheral Aerobic Blood Culture - Preliminary No growth in 1 day 06/12/18 19:30 Blood - Peripheral Anaerobic Blood Culture - Preliminary No growth in 1 day 06/12/18 13:30 Blood - Line Aerobic Blood Culture - Preliminary No growth in 1 day 06/12/18 13:30 Blood - Line Anaerobic Blood Culture - Preliminary No growth in 1 day Imaging Imaging: Impressions Chest X-Ray 06/12/18 00:00 CONCLUSION: Stable appearance of the chest with bilateral opacities. Chest CTA 06/13/18 12:29 CONCLUSION: 1. Bilateral effusions are increased. 2. Right lower lobe masslike areas decreased in prominence otherwise stable nodules and parenchymal infiltrates. 3. No evidence for pulmonary embolism. 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 CTA ordered to r/o PE, however patient is not a candidate for anticoagulation he has an IVC filter. CXR reviewed. Palliative care consulted for goals of care. Suspect severe sepsis with presenting hypotension, HR >90 with probable bilateral pneumonia, leukopenia. Sepsis resolving Follow-up with blood cultures, UA unremarkable Due to recent hospitalization and course of antibiotics, will consult infectious disease for further recommendations IV cefepime increased to 2 g every 8 hours per infectious disease, continue azithromycin continue vancomycin IV per ID recommendations following Diarrhea. C. difficile is negative 06/09 . Add Imodium. Acute kidney injury superimposed on chronic kidney disease stage IIlikely due to poor oral intake, organ dysfunction due to sepsis-IV fluid hydration, avoid nephrotoxins, hold home TIESHA inhibitor due to also superimposed hypotension Elevated troponin Ipatient has no complaint of chest pain this may be due to his acute kidney injury, will trend troponin I due to history of CAD and follow- up clinically. High-grade myelodysplastic syndromeconsult Dr. Purdy who had seen the patient during the previous hospitalization. Pancytopenia -worsening platelets likely due to sepsis and myelodysplastic syndrome, monitor, transfusions as needed, if platelets less than 15 K. Transfuse if hemoglobin drops less than 7.5 per oncology recommendation Transfuse 1U PLT on 06/11 Hyponatremia due to hypovolemianormal saline DO NOT RESUSCITATE status Physical therapy evaluation Discussed with the patient, nurse Discharge plan: Discharge when improved and cleared by infectious disease patient still on IV antibiotics. PLT transfused 06/11 Patient to follow-up with his oncology Dr. Mckeon as outpatient. 06/12 patient was noted with fevers, antibiotic change per ID 06/13 patient with acute respiratory failure requiring 6L by NC. CTA, palliative care consulted Progress Note: Quality VTE Deep Vein Thrombosis/Pulmonary Embolism Present on Admission: No
[2018-06-13] MEDS: Azithromycin Inj 250 MG in Sodium Chlor 0.9% Inj 250 ML IV.SIG SCH (17:44)
[2018-06-13] MEDS: LORazepam 0.5 MG Tablet PO PRN (21:29)
[2018-06-13] MEDS: Vancomycin Inj 1,500 MG in Sodium Chlor 0.9% Inj 500 ML IV.SIG SCH (23:00)
[2018-06-14] MEDS: LORazepam 0.5 MG Tablet PO PRN ×2 (04:01→13:13)
[2018-06-14] MEDS: Clotrimazole 10 MG Troche BUCCAL SCH ×5 (05:29→23:20)
[2018-06-14] MEDS: Megestrol Acetate Liq 400 MG/10 ML UDC PO SCH (09:48)
[2018-06-14] MEDS: Ferrous Sulfate 325 MG Tablet PO SCH (09:48)
[2018-06-14 12:07] LABS: Eos # (Auto) 0.1 th/mm3 (0.0-0.4); Hematocrit 22.3 % (39.0-51.0); Hemoglobin 7.5 gm/dL (13.0-17.0); Lymph # (Auto) 0.7 th/mm3 (1.0-4.8); Lymph % (Auto) 42.9 % (9.0-44.0); Mean Corpuscular HGB Conc 33.6 % (32.0-36.0); Mean Corpuscular Hemoglobin 27.9 pg (27.0-34.0); Mean Corpuscular Volume 83.1 fL (80.0-100.0); Mean Platelet Volume 8.1 fL (7.0-11.0); Mono # (Auto) 0.2 th/mm3 (0.0-0.9); Mono % (Auto) 10.7 % (0.0-8.0); Neut # (Auto) 0.6 th/mm3 (1.8-7.7); Neut % (Auto) 39.4 % (16.0-70.0); Platelet Count 20 th/mm3 (150-450); Red Blood Count 2.69 mil/mm3 (4.50-5.90); White Blood Count 1.6 th/mm3 (4.0-11.0)
[2018-06-14 12:25] LABS: Calcium 8.2 mg/dL (8.5-10.1); Carbon Dioxide 21.3 meq/L (21.0-32.0)
[2018-06-14 13:14] LABS: Blast Cells 6 % (0-0); Eosinophils 1 % (0-4); Lymphocytes 31 % (9-44); Monocytes 4 % (0-8)
[2018-06-14 13:17] LABS: Platelet Estimate Rare (Normal); Platelet Morphology Normal (Normal)
[2018-06-14] MEDS ORDERED: MethylPREDNISolone Sod Succinate Inj 40 MG/ML Vial IM ONE (13:21)
[2018-06-14] MEDS: MethylPREDNISolone Sod Succinate Inj 40 MG/ML Vial IV.PUSH SCH (14:00)
[2018-06-14 14:09] LABS: ABG Base Excess -5.5 mmol/L (-2-2); ABG PCO2 28 mmHg (38-42); ABG PO2 70 mmHG (61-120)
--- NOTE | 2018-06-14 14:18 | P.DIET ---
Nutritional Evaluation Type of nutrition evaluation: follow-up Nutrition screening: Weight Loss > 10 lbs Objective - Diagnosis Pneumonia, DOM - Objective [place] body weight: 67 kg (148lb) % IBW: 140 Body Weight Used for Calculations: IBW (67kg), Actual Energy Needs - Lower Range (kCal/kg): 30 Energy Needs - Upper Range (kCal/kg): 35 Lower Limit kCal/kg (kCals): 2,010 Upper Limit kCal/kg (kCals): 2,345 Lower Limit Protein Factor (Grams per Kg): 1.2 (g/kg IBW) Upper Limit Protein Factor (Grams per Kg): 1.5 (g/kg IBW) Lower Protein Needs (Protein): 80 Upper Protein Needs (Protein): 100 Dietitian Reviewed in Medical Record: Current diet, Curent medications, Intake & Output, Labs, Medical history Diet Order: Regular Oral Diet Intake Amount: Fair 50-75% Objective Comments: PMH; prostate, lung ca, HTN, CKD, CAD Labs; nutritionally unremarkable Medications; Ferusal, lasix, megace Assessment Assessment: Spoke with RN Lisa who reports pt is not eating at all 2/2 severe respiratory distress. He is receiving multiple supplements daily which are also left untouched. Recent reports of diarrhea however now resolved per RN. Noted pt receiving Megace with no increase in appetite. At this time pt will require altered route for nutrition in order to meet increased energy requirements related to medical course. Will recommend to initiate feeding tube to provide nutrition.Will make feeding recommendations as appropriate. Dietitian following. Recommendations: 1. Consider initiation of enteral nutrition as pt is unable to meet his energy requirements PO Dietitian to Monitor: Lab values, Supplement acceptance, Weight change, PO Intake, Diet advancement, Medical course
--- NOTE | 2018-06-14 14:25 | P.PNONC ---
Subjective Interval history: Afebrile Patient lying in bed naked, tachypneic Per RN attending has just ordered Solu-Medrol and IV Lasix RT at bedside getting breathing ABG Objective Vital Signs/Intake & Output: Vital Signs 06/13/18 16:00 06/13/18 20:00 06/13/18 22:54 Temperature 97.7 F 98.3 F 97.9 F Pulse Rate 111 H 101 H 92 H Respiratory Rate 32 H 32 H 24 Blood Pressure 147/93 H 155/90 H 151/73 H Pulse Oximetry 90 L 93 L 93 L 06/14/18 03:57 06/14/18 08:00 06/14/18 10:50 Temperature 98.2 F 97.8 F Pulse Rate 90 108 H 99 H Respiratory Rate 36 H 28 H 24 Blood Pressure 144/71 H 146/75 H Pulse Oximetry 91 L 91 L 06/14/18 10:55 06/14/18 12:00 Temperature 97.4 F L Pulse Rate 104 H Respiratory Rate Blood Pressure 133/74 Pulse Oximetry 92 L 95 Intake & Output 06/13/18 06/14/18 06/14/18 18:59 06:59 18:59 Intake Total 3030 / 3030 715 / 715 1000 / 1000 Output Total 3600 / 3600 Balance -570 / -570 715 / 715 1000 / 1000 Weight 209 lb 7.026 oz Intake: IV 1350 / 1350 715 / 715 1000 / 1000 NS Inj 1,000 ML @ 100 mls/hr IV 1000 / 1000 1000 / 1000 .CONT .Q10H [facility] Rx#:[id number] Azithromycin Inj 250 MG In NS 250 / 250 Inj 250 ML @ 250 mls/hr IV.SIG Q24H [facility] Rx#:[id number] Maxipime Inj 2,000 MG In NS Inj 100 / 100 200 / 200 100 ML @ 200 mls/hr IV.SIG Q8H [facility] Rx#:[id number] Vancomycin Inj 1,500 MG In NS 515 / 515 Inj 500 ML @ 250 mls/hr IV.SIG Q24H [facility] Rx#:[id number] Oral 1680 / 1680 Output: Urine 3600 / 3600 Other: Date of Last Bowel Movement 06/13/18 Result Diagrams: 06/14/18 11:37 06/14/18 11:37 Laboratory Results: Laboratory Results - last 24 hr 06/14/18 06/14/18 06/14/18 11:37 11:37 13:58 WBC 1.6 L RBC 2.69 L Hgb 7.5 L Hct 22.3 L MCV 83.1 MCH 27.9 MCHC 33.6 RDW 23.0 H Plt Count 20 L MPV 8.1 Prelim Diff (Auto) Slide review pending Neut % (Auto) 39.4 Lymph % (Auto) 42.9 [place] % (Auto) 10.7 H Eos % (Auto) 5.0 H Baso % (Auto) 2.0 Neut # (Auto) 0.6 L Lymph # (Auto) 0.7 L [place] # (Auto) 0.2 Eos # (Auto) 0.1 Baso # (Auto) 0.0 WBC Differential Manual diff final Seg Neuts % (Manual) 32 Band Neuts % (Manual) 24 H Lymphocytes % (Manual) 31 Monocytes % (Manual) 4 Eosinophils % (Manual) 1 Basophils % (Manual) 2 Blast Cells % (Manual) 6 H Abs Neuts (Manual) 0.9 L Differential Comment . Platelet Estimate Rare L Platelet Morphology Normal Basophilic Stippling Faint H Keratocytes Occ H Puncture Site Left radial Patient Temperature 98.6 O2 Saturation 92 ABG pH 7.42 ABG pCO2 28 L ABG pO2 70 ABG HCO3 18 L ABG O2 Content 17.7 ABG Base Excess -5.5 L ABG Methemoglobin 1.4 Maurice Test Present Hemoglobin 13.6 Carboxyhemoglobin 1.6 O2 Delivery Device Simple mask Liter Flow 10.00 Critical Value No Sodium 143 Potassium 4.0 Chloride 116 H Carbon Dioxide 21.3 Anion Gap 6 BUN 8 Creatinine 1.10 Estimated GFR 66 L Random Glucose 86 Calcium 8.2 L Culture Results: Microbiology 06/12/18 19:30 Aerobic Blood Culture - Preliminary Blood - Peripheral No growth in 2 days Anaerobic Blood Culture - Preliminary No growth in 2 days 06/12/18 13:30 Aerobic Blood Culture - Preliminary Blood - Line No growth in 2 days Anaerobic Blood Culture - Preliminary No growth in 2 days 06/12/18 11:45 Urine Culture - Final Clean Catch Urine No growth in 48 hours 06/13/18 15:12 Stool Occult Blood (LLUVIA) - Final Stool Hemoccult negative 06/06/18 12:04 Aerobic Blood Culture - Final Blood - Peripheral No growth in 5 days Anaerobic Blood Culture - Final No growth in 5 days 06/06/18 11:59 Aerobic Blood Culture - Final Blood - Peripheral No growth in 5 days Anaerobic Blood Culture - Final No growth in 5 days Imaging Studies: Impressions Chest CTA 06/13/18 12:29 CONCLUSION: 1. Bilateral effusions are increased. 2. Right lower lobe masslike areas decreased in prominence otherwise stable nodules and parenchymal infiltrates. 3. No evidence for pulmonary embolism. Medications: Active Medications Generic Name Dose Route Start Last Admin Trade Name Freq PRN Reason Stop Dose Admin Acetaminophen 650 mg 06/06/18 14:14 06/11/18 23:53 Tylenol PO 650 mg Q4H PRN Administration Temp > 100.4 Acetaminophen 650 mg 06/11/18 12:00 06/11/18 14:01 Tylenol PO 650 mg Q4H PRN Administration SEE LABEL COMMENTS Albuterol 1 ampul 06/06/18 14:23 06/13/18 05:13 Duoneb Neb (Prn) NEB 1 ampul Q4HR NEB PRN Administration SHORTNESS OF BREATH Atorvastatin Calcium 40 mg 06/07/18 09:00 06/14/18 09:48 Lipitor PO 40 mg DAILY DILLON Administration Clotrimazole 10 mg 06/12/18 14:00 06/14/18 09:48 Mycelex Evangelist BUCCAL 10 mg 5 TIMES A DAY D[facility]ON Administration Diphenhydramine HCl 25 mg 06/10/18 19:31 06/10/18 23:55 Benadryl PO 25 mg Q4H PRN Administration SEE LABEL COMMENTS Diphenhydramine HCl 25 mg 06/11/18 11:00 06/11/18 14:01 Benadryl PO 25 mg Q4H PRN Administration SEE LABEL COMMENTS Diphenoxylate HCl/Atropine 1 tab 06/11/18 12:00 06/13/18 08:55 Lomotil PO 1 tab Q6H PRN Administration DIARRHEA Ferrous Sulfate 325 mg 06/07/18 09:00 06/14/18 09:48 Ferosul PO 325 mg DAILY DILLON Administration Guaifenesin/Dextromethorphan 10 ml 06/06/18 17:12 06/11/18 11:29 Robitussin Dm Liq PO 10 ml Q4H PRN Administration COUGH Azithromycin 250 mg/ Sodium 250 mls @ 250 mls/hr 06/06/18 16:00 02/28/19 18: 30 Chloride IV.SIG Infused Q24H [facility]ON Infusion Vancomycin HCl 1,500 mg/ 515 mls @ 250 mls/hr 06/08/18 22:00 06/14/18 01:05 Sodium Chloride IV.SIG Infused Q24H [facility] Infusion Cefepime HCl 2,000 mg/ Sodium 100 mls @ 200 mls/hr 06/12/18 21:00 06/14/18 12 :52 Chloride IV.SIG 50 mls/hr Q8H [facility] Administration Lorazepam 0.5 mg 06/13/18 16:49 06/14/18 13:13 Ativan PO 0.5 mg Q6H PRN Administration ANXIETY Megestrol Acetate 400 mg 06/09/18 18:00 06/14/18 09:48 Megace Liq PO 400 mg DAILY [facility]ON Administration Metoprolol Succinate 25 mg 06/07/18 09:00 06/14/18 09:48 Toprol Xl PO 25 mg DAILY DILLON Administration Sodium Chloride 2 ml 06/06/18 21:00 06/14/18 09:49 Ns Flush IV.FLUSH 2 ml BID DILLON Administration Objective Remarks: GENERAL: Acutely ill-appearing older male lying naked in bed on simple mask SKIN: Warm and dry. HEAD: Normocephalic. EYES: No scleral icterus. No injection or drainage. NECK: Supple, trachea midline. No JVD or lymphadenopathy. CARDIOVASCULAR: Regular rate and rhythm without murmurs. RESPIRATORY: Tachypneic. Scattered wheeze anteriorly. GASTROINTESTINAL: Abdomen soft, non-tender, nondistended. EXTREMITIES: No cyanosis, or edema. MUSCULOSKELETAL: Generalized weakness NEUROLOGICAL: No obvious focal deficit. Awake, alert, and oriented x3. Assessment/Plan - Plan This is a pleasant 72-year-old male with history of high-grade myelodysplastic syndrome. His most recent cycle of Dacogen was given under the care of Dr. Mckeon in April 2018. He was admitted 2 weeks ago with high-grade fever in the setting of neutropenia and was eventually discharged. He has come back with what appears to be failure to thrive. Plan: 1. Patient had chest CTA yesterday that showed increased bilateral effusions. There is no evidence for pulmonary embolism. He has stable parenchymal infiltrates. He is currently on antimicrobial therapy with azithromycin, vancomycin and cefepime. Attending has ordered Solu-Medrol and IV Lasix per RN. 2. Patient last received packed red blood cells on 06/10. Stool Hemoccult negative. Interestingly his ABG shows hemoglobin of 13.6. His CBC this morning showed hemoglobin of 7.5. We will obtain another H&H this evening to verify. 3. Continue to closely watch his respiratory status. Will order an H&H to be done at 5 PM this evening. Plan to transfuse 1 unit packed red blood cells for hemoglobin less than 7.5.
[2018-06-14] MEDS ORDERED: MethylPREDNISolone Sod Succinate Inj 40 MG/ML Vial IV.PUSH ONE (16:00)
--- NOTE | 2018-06-14 16:57 | P.PNPAL ---
Reason for Visit Reason for visit: a. To assist with evaluation and management of symptoms including: Dyspnea, anxiety b. To assist medical decision maker(s) with: better understanding of current medical conditions; weighing benefits/burdens of medical treatment options; making medical treatment decisions. Subjective Subjective/Interval History: Follow up visit for for symptom management of dyspnea and clarification of medical treatment goals. Patient with a known history of myelodysplastic syndrome who was admitted with pneumonia, DOM and elevated troponin. Patient seen and assessed in room 236 with his at bedside. Oxygen saturation in the low 90s on 6L via nasal cannula. Patient is tachypneic with pursed lipped breathing and accessory muscle usage. His insight and judgment related to his medical conditions is limited; he is having difficulty communicating verbally secondary to dyspnea. CTA on 06/13/2018 showed bilateral effusions have increased. Right lower lobe masslike area decreased in prominence otherwise stable nodules and parenchymal infiltrates. No evidence for pulmonary embolism. Spoke to patient's oncologist, Dr. Mckeon. Patient has had an acute decline in the past few months with recurrent hospitalizations and worsening symptoms. He states the patient is not a candidate for further aggressive interventions at this time and recommends comfort focused care. Per Dr. Mckeon, life expectancy is likely weeks to months. Palliative care met with the patient's to discuss aggressive versus comfort oriented goals. Dual visit with Emily Nielson LCSW. Hospice was introduced. was appropriately tearful and overwhelmed stating she did not know that they were "at that point." Initially she wanted to wait until tomorrow (06/15/2018) to speak with someone from hospice. However after returning to the room and seeing the patient in distress, she agreed to speak with the hospice admission nurse jon. Will admit patient to hospice inpatient and transfer the patient tomorrow. Discussed patient with Dr. Gooden, Dr. Mckeon, Alesia Proctor APRN, RN (Lisa). Hospice consult pending, discussed with Julissa Guzman in Hospice intake. Family/Friend Interactions: See interval history Advance Directives Significant change in goals:: Hospice consult pending. Objective Vital Signs: Vital Signs 06/13/18 20:00 06/13/18 22:54 06/14/18 03:57 Temperature 98.3 F 97.9 F 98.2 F Pulse Rate 101 H 92 H 90 Respiratory Rate 32 H 24 36 H Blood Pressure 155/90 H 151/73 H 144/71 H Pulse Oximetry 93 L 93 L 91 L 06/14/18 08:00 06/14/18 10:50 06/14/18 10:55 Temperature 97.8 F Pulse Rate 108 H 99 H Respiratory Rate 28 H 24 Blood Pressure 146/75 H Pulse Oximetry 91 L 92 L 06/14/18 12:00 06/14/18 14:35 06/14/18 14:36 Temperature 97.4 F L Pulse Rate 104 H 102 H Respiratory Rate 36 H Blood Pressure 133/74 Pulse Oximetry 95 90 L 06/14/18 15:19 Temperature 97.7 F Pulse Rate Respiratory Rate Blood Pressure 144/89 H Pulse Oximetry 92 L Intake & Output 06/13/18 06/14/18 06/14/18 18:59 06:59 18:59 Intake Total 3030 / 3030 715 / 715 1100 / 1100 Output Total 3600 / 3600 Balance -570 / -570 715 / 715 1100 / 1100 Weight 95 kg Intake: IV 1350 / 1350 715 / 715 1100 / 1100 NS Inj 1,000 ML @ 100 mls/hr IV 1000 / 1000 1000 / 1000 .CONT .Q10H [facility] Rx#:[id number] Azithromycin Inj 250 MG In NS 250 / 250 Inj 250 ML @ 250 mls/hr IV.SIG Q24H [facility] Rx#:[id number] Maxipime Inj 2,000 MG In NS Inj 100 / 100 200 / 200 100 / 100 100 ML @ 200 mls/hr IV.SIG Q8H [facility] Rx#:[id number] Vancomycin Inj 1,500 MG In NS 515 / 515 Inj 500 ML @ 250 mls/hr IV.SIG Q24H [facility] Rx#:[id number] Oral 1680 / 1680 Output: Urine 3600 / 3600 Other: Date of Last Bowel Movement 06/13/18 Physical Exam: CONSTITUTIONAL/GENERAL: This is an adequately nourished, chronically ill- appearing patient experiencing moderate to severe shortness of breath. TUBES/LINES/DRAINS: PIV,nasal cannula SKIN: No jaundice, rashes, or lesions. No wounds seen anteriorly. Skin temperature appropriate. Not diaphoretic. HEAD: Atraumatic. Normocephalic. EYES: Pupils equal and round and reactive. No scleral icterus. No injection or drainage. Fundi not examined. ENT: Hearing grossly normal. Nose without bleeding or purulent drainage. NECK: Trachea midline. Supple, nontender. No palpable thyroid enlargement or nodularity. CARDIOVASCULAR: Regular rate and rhythm without murmurs, gallops, or rubs. No JVD. Peripheral pulses symmetric. RESPIRATORY/CHEST: Tachypneic with pursed lipped breathing and accessory muscle usage. Oxygen saturations in the low 90s on 6 L via nasal cannula GASTROINTESTINAL: Abdomen soft, non-tender, nondistended. Bowel sounds present. GENITOURINARY: Without palpable bladder distension. MUSCULOSKELETAL: Extremities without clubbing or cyanosis. 1+ pedal edema bilaterally LYMPHATICS: No palpable cervical or supraclavicular adenopathy. NEUROLOGICAL: Obtunded. Not answering questions or following commands PSYCHIATRIC: Limited insight and judgement toward medical conditions. Diagnostic Tests Laboratory: Laboratory Results - last 72 hr 06/11/18 06/12/18 06/12/18 21:50 05:00 05:00 WBC 1.2 L RBC 2.78 L Hgb 8.0 L Hct 23.2 L MCV 83.2 MCH 28.6 MCHC 34.4 RDW 22.6 H Plt Count 23 L D MPV 8.2 Prelim Diff (Auto) Slide review pending Neut % (Auto) 49.9 Lymph % (Auto) 38.5 [place] % (Auto) 4.0 Eos % (Auto) 5.8 H Baso % (Auto) 1.8 Neut # (Auto) 0.6 L Lymph # (Auto) 0.5 L [place] # (Auto) 0.0 Eos # (Auto) 0.1 Baso # (Auto) 0.0 WBC Differential Manual diff final Seg Neuts % (Manual) 32 Band Neuts % (Manual) 15 H Lymphocytes % (Manual) 36 Monocytes % (Manual) 2 Eosinophils % (Manual) 7 H Basophils % (Manual) 3 H Blast Cells % (Manual) 5 H Abs Neuts (Manual) 0.6 L Differential Comment . Platelet Estimate Rare L Platelet Morphology Normal Basophilic Stippling Keratocytes Puncture Site Patient Temperature O2 Saturation ABG pH ABG pCO2 ABG pO2 ABG HCO3 ABG O2 Content ABG Base Excess ABG Methemoglobin Maurice Test Hemoglobin Carboxyhemoglobin O2 Delivery Device Liter Flow Critical Value Sodium 146 H Potassium 3.8 Chloride 117 H Carbon Dioxide 19.9 L Anion Gap 9 BUN 9 Creatinine 1.18 Estimated GFR 61 L Random Glucose 110 H Calcium 7.6 L Total Bilirubin 0.4 AST 15 ALT 13 Alkaline Phosphatase 47 Total Protein 6.5 Albumin 2.1 L Urine Color Urine Clarity Urine pH Ur Specific [place] Urine Protein Urine Glucose (UA) Urine Ketones Urine Occult Blood Urine Nitrate Urine Bilirubin Urine Urobilinogen Ur Leukocyte Esterase Urine RBC Ur Squamous Epith Cells Urine Mucus Micro UA Comment Ur Microscopic Review Vancomycin Trough 18.5 H 06/12/18 06/13/18 06/14/18 11:45 05:00 11:37 WBC 1.4 L 1.6 L RBC 2.59 L 2.69 L Hgb 7.4 L 7.5 L Hct 21.7 L 22.3 L MCV 83.6 83.1 MCH 28.7 27.9 MCHC 34.3 33.6 RDW 23.3 H 23.0 H Plt Count 25 L 20 L MPV 8.1 8.1 Prelim Diff (Auto) Manual diff required Slide review pending Neut % (Auto) 39.4 Lymph % (Auto) 42.9 [place] % (Auto) 10.7 H Eos % (Auto) 5.0 H Baso % (Auto) 2.0 Neut # (Auto) 0.6 L Lymph # (Auto) 0.7 L [place] # (Auto) 0.2 Eos # (Auto) 0.1 Baso # (Auto) 0.0 WBC Differential Manual diff final Manual diff final Seg Neuts % (Manual) 30 32 Band Neuts % (Manual) 21 H 24 H Lymphocytes % (Manual) 31 31 Monocytes % (Manual) 3 4 Eosinophils % (Manual) 8 H 1 Basophils % (Manual) 3 H 2 Blast Cells % (Manual) 4 H 6 H Abs Neuts (Manual) 0.7 L 0.9 L Differential Comment . . Platelet Estimate Low L Rare L Platelet Morphology Normal Normal Basophilic Stippling Faint H Keratocytes Occ H Puncture Site Patient Temperature O2 Saturation ABG pH ABG pCO2 ABG pO2 ABG HCO3 ABG O2 Content ABG Base Excess ABG Methemoglobin Maurice Test Hemoglobin Carboxyhemoglobin O2 Delivery Device Liter Flow Critical Value Sodium Potassium Chloride Carbon Dioxide Anion Gap BUN Creatinine Estimated GFR Random Glucose Calcium Total Bilirubin AST ALT Alkaline Phosphatase Total Protein Albumin Urine Color Colorless Urine Clarity Clear Urine pH 6.0 Ur Specific [place] 1.002 Urine Protein Negative Urine Glucose (UA) Negative Urine Ketones Negative Urine Occult Blood Moderate H Urine Nitrate Negative Urine Bilirubin Negative Urine Urobilinogen Less than 2 Ur Leukocyte Esterase Negative Urine RBC Less than 1 Ur Squamous Epith Cells <1 Urine Mucus Few H Micro UA Comment Culture not ind Ur Microscopic Review Not Reportable Vancomycin Trough 06/14/18 06/14/18 11:37 13:58 WBC RBC Hgb Hct MCV MCH MCHC RDW Plt Count MPV Prelim Diff (Auto) Neut % (Auto) Lymph % (Auto) [place] % (Auto) Eos % (Auto) Baso % (Auto) Neut # (Auto) Lymph # (Auto) [place] # (Auto) Eos # (Auto) Baso # (Auto) WBC Differential Seg Neuts % (Manual) Band Neuts % (Manual) Lymphocytes % (Manual) Monocytes % (Manual) Eosinophils % (Manual) Basophils % (Manual) Blast Cells % (Manual) Abs Neuts (Manual) Differential Comment Platelet Estimate Platelet Morphology Basophilic Stippling Keratocytes Puncture Site Left radial Patient Temperature 98.6 O2 Saturation 92 ABG pH 7.42 ABG pCO2 28 L ABG pO2 70 ABG HCO3 18 L ABG O2 Content 17.7 ABG Base Excess -5.5 L ABG Methemoglobin 1.4 Maurice Test Present Hemoglobin 13.6 Carboxyhemoglobin 1.6 O2 Delivery Device Simple mask Liter Flow 10.00 Critical Value No Sodium 143 Potassium 4.0 Chloride 116 H Carbon Dioxide 21.3 Anion Gap 6 BUN 8 Creatinine 1.10 Estimated GFR 66 L Random Glucose 86 Calcium 8.2 L Total Bilirubin AST ALT Alkaline Phosphatase Total Protein Albumin Urine Color Urine Clarity Urine pH Ur Specific [place] Urine Protein Urine Glucose (UA) Urine Ketones Urine Occult Blood Urine Nitrate Urine Bilirubin Urine Urobilinogen Ur Leukocyte Esterase Urine RBC Ur Squamous Epith Cells Urine Mucus Micro UA Comment Ur Microscopic Review Vancomycin Trough Result Diagrams: 06/14/18 11:37 06/14/18 11:37 Microbiology: Microbiology 06/12/18 19:30 Aerobic Blood Culture - Preliminary Blood - Peripheral No growth in 2 days Anaerobic Blood Culture - Preliminary No growth in 2 days 06/12/18 13:30 Aerobic Blood Culture - Preliminary Blood - Line No growth in 2 days Anaerobic Blood Culture - Preliminary No growth in 2 days 06/12/18 11:45 Urine Culture - Final Clean Catch Urine No growth in 48 hours 06/13/18 15:12 Stool Occult Blood ([facility]) - Final Stool Hemoccult negative Imaging: e test. Chest X-Ray 06/12/18 00:00 CONCLUSION: Stable appearance of the chest with bilateral opacities. Chest CTA 06/13/18 12:29 CONCLUSION: 1. Bilateral effusions are increased. 2. Right lower lobe masslike areas decreased in prominence otherwise stable nodules and parenchymal infiltrates. 3. No evidence for pulmonary embolism. Assessment and Plan - Disease Oriented Problem List (1) Myelodysplastic syndrome (2) Sepsis (3) Pancytopenia (4) Pneumonia (5) COPD (chronic obstructive pulmonary disease) (6) Acute kidney injury (7) Elevated troponin - Symptom Scale (1) Dyspnea 0-10 Scale: Unable to quantify (2) Anxiety 0-10 Scale: Unable to quantify Pertinent Non-Medical Issues: Psychosocial: Patient is originally from [facility] moving to the [facility] in 1983. Patient was living in [place] and moved to [place] in 2014. 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 Patient has been twice. He has been to his current for approximately 21 years. He has 2 adult children. Spiritual: [employer]ish kandis Legal: Ethical issues impacting care: No known ethical issues impacting care at this time. Important Contacts: Marianna Cabral, : [phone] Prognosis: Spoke to patient's oncologist, Dr. Mckeon. Patient has had an acute decline in the past few months with recurrent hospitalizations and worsening symptoms. He states the patient is not a candidate for further aggressive interventions at this time and recommends comfort focused care. Per Dr. Mckeon, life expectancy is likely weeks to months. If/when patient's goals become comfort oriented, hospice is an appropriate option for this patient. Code Status: No Code DNR Plan: * NO CODE/DNR * Per [place] statutes in the absence of written advanced directives healthcare proxy decision making would fall to the patient's , Marianna. * Spoke to patient's oncologist, Dr. Mckeon. Patient has had an acute decline in the past few months with recurrent hospitalizations and worsening symptoms. He states the patient is not a candidate for further aggressive interventions at this time and recommends comfort focused care. Per Dr. Mckeon, life expectancy is likely weeks to months. * Dual visit with Emily Nielson LCSW. Palliative care met with the patient's , Marianna. Discussed aggressive versus comfort oriented goals. Patient's was amenable to speaking with hospice; tentative plan to admit patient to hospice inpatient and transfer home or to care center in the morning. * Discussed patient with Dr. Gooden, Alesia Proctor APRN RN (Lisa). * Hospice consult pending, discussed with Julissa Thomas in Hospice intake. * Symptom management-dyspnea: Former smoker with a history of smoking 2-3 packs/ day. Patient was admitted earlier this month for management of sepsis with pneumonia. Patient having increasing tachypnea and shortness of breath. CTA on showed bilateral effusions have increased. Right lower lobe masslike area decreased in prominence otherwise stable nodules and parenchymal infiltrates. No evidence for pulmonary embolism. Chest x-ray on admission showed bilateral upper lobe densities. Currently on PRN/scheduled albuterol nebulizers, PRN Robitussin DM and IV antibiotics. Consider starting the patient on a small dose of PRN morphine to assist with dyspnea. * Symptom management-anxiety: Multifactorial. Contributing factors include dyspnea, hypoxia, fear, hospitalization, loss of independence. Patient had received 0.25 mg Lorazepam earlier this afternoon with slight improvement in symptoms. Lorazepam 0.5mg is available every 6 hours as needed. * Palliative care will continue to follow this patient to establish stress, assist with symptom management and clarification of medical treatment goals. ADDENDUM: Hospice admission nurse, Gabriel, met with the patient and his . Patient's is not ready to sign consents for hospice admission at this time. Hospice will follow up tomorrow 06/15/2018. Dr. Gooden notified. Attestation Attestation: To help prompt me to consider important information that might be impacting today's encounter and assessment, information from prior notes written by myself or my colleagues may have been "brought forward" into today's note. My signature on this note, however, is an attestation that I personally performed the exam, history, and/or decision-making noted today, and, unless otherwise indicated, the interactions with patient, family, and staff as well as the review of records all occurred today. I also attest that the listed assessment and stated plan reflect my best clinical judgment today based on the combination of historical information, prior notes, and today's exam/ interactions. When time spent is documented, it refers only to time spent today by the signer, or if indicated, combined time spent today by collaborating physician/nurse practitioner.
[2018-06-14] MEDS ORDERED: Morphine Inj 4 MG/ML Vial IV.PUSH PRN (17:00)
--- NOTE | 2018-06-14 17:00 | P.PNIM ---
Physical Exam Vital signs: Vital Signs 06/13/18 20:00 06/13/18 22:54 06/14/18 03:57 Temperature 98.3 F 97.9 F 98.2 F Pulse Rate 101 H 92 H 90 Respiratory Rate 32 H 24 36 H Blood Pressure 155/90 H 151/73 H 144/71 H Pulse Oximetry 93 L 93 L 91 L 06/14/18 08:00 06/14/18 10:50 06/14/18 10:55 Temperature 97.8 F Pulse Rate 108 H 99 H Respiratory Rate 28 H 24 Blood Pressure 146/75 H Pulse Oximetry 91 L 92 L 06/14/18 12:00 06/14/18 14:35 06/14/18 14:36 Temperature 97.4 F L Pulse Rate 104 H 102 H Respiratory Rate 36 H Blood Pressure 133/74 Pulse Oximetry 95 90 L 06/14/18 15:19 Temperature 97.7 F Pulse Rate Respiratory Rate Blood Pressure 144/89 H Pulse Oximetry 92 L Intake & Output 06/13/18 06/14/18 06/14/18 18:59 06:59 18:59 Intake Total 3030 / 3030 715 / 715 1100 / 1100 Output Total 3600 / 3600 Balance -570 / -570 715 / 715 1100 / 1100 Weight 95 kg Intake: IV 1350 / 1350 715 / 715 1100 / 1100 NS Inj 1,000 ML @ 100 mls/hr IV 1000 / 1000 1000 / 1000 .CONT .Q10H [facility] Rx#:[id number] Azithromycin Inj 250 MG In NS 250 / 250 Inj 250 ML @ 250 mls/hr IV.SIG Q24H [facility] Rx#:[id number] Maxipime Inj 2,000 MG In NS Inj 100 / 100 200 / 200 100 / 100 100 ML @ 200 mls/hr IV.SIG Q8H [facility] Rx#:[id number] Vancomycin Inj 1,500 MG In NS 515 / 515 Inj 500 ML @ 250 mls/hr IV.SIG Q24H [facility] Rx#:[id number] Oral 1680 / 1680 Output: Urine 3600 / 3600 Other: Date of Last Bowel Movement 06/13/18 Narrative: GENERAL: Well-nourished well-developed chronically ill-appearing elderly male, with shortness of breath, anxious. CARDIOVASCULAR: tachycardic. Regular rate and rhythm. RESPIRATORY: No accessory muscle use. Patient is sort of breath. Bibasilar crackles, decreased breath sounds, sob. GASTROINTESTINAL: Abdomen soft, non-tender, nondistended. Normoactive bowel sounds MUSCULOSKELETAL: Extremities without clubbing, cyanosis. 1+ bilat edema. NEUROLOGICAL: Awake and alert person place and time. No obvious cranial nerve deficits. Motor grossly within normal limits. Five out of 5 muscle strength in the arms and legs. Normal speech. SKIN: pale. No purpura. PSYCHIATRIC: Flat affect. Anxious. Results Labs CBC & Chem 7: 06/14/18 11:37 06/14/18 11:37 Labs: Microbiology 06/12/18 19:30 Blood - Peripheral Aerobic Blood Culture - Preliminary No growth in 2 days 06/12/18 19:30 Blood - Peripheral Anaerobic Blood Culture - Preliminary No growth in 2 days 06/12/18 13:30 Blood - Line Aerobic Blood Culture - Preliminary No growth in 2 days 06/12/18 13:30 Blood - Line Anaerobic Blood Culture - Preliminary No growth in 2 days 06/12/18 11:45 Clean Catch Urine Urine Culture - Final No growth in 48 hours 06/13/18 15:12 Stool Stool Occult Blood ([facility]) - Final Hemoccult negative Assessment and Plan Plan 72-year-old male with history of 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 CTA ordered to r/o PE, however patient is not a candidate for anticoagulation he has an IVC filter. CXR reviewed. Palliative care consulted for goals of care. Suspect severe sepsis with presenting hypotension, HR >90 with probable bilateral pneumonia, leukopenia. Sepsis resolving Follow-up with blood cultures, UA unremarkable Due to recent hospitalization and course of antibiotics, will consult infectious disease for further recommendations IV cefepime increased to 2 g every 8 hours per infectious disease, continue azithromycin continue vancomycin IV per ID recommendations following Diarrhea. C. difficile is negative 06/09 . Add Imodium. Acute kidney injury superimposed on chronic kidney disease stage IIlikely due to poor oral intake, organ dysfunction due to sepsis-IV fluid hydration, avoid nephrotoxins, hold home TIESHA inhibitor due to also superimposed hypotension Elevated troponin Ipatient has no complaint of chest pain this may be due to his acute kidney injury, will trend troponin I due to history of CAD and follow- up clinically. High-grade myelodysplastic syndromeconsult Dr. Purdy who had seen the patient during the previous hospitalization. Pancytopenia -worsening platelets likely due to sepsis and myelodysplastic syndrome, monitor, transfusions as needed, if platelets less than 15 K. Transfuse if hemoglobin drops less than 7.5 per oncology recommendation Transfuse 1U PLT on 06/11 Hyponatremia due to hypovolemianormal saline DO NOT RESUSCITATE status Physical therapy evaluation Discussed with the patient, nurse Discharge plan: Discharge when improved and cleared by infectious disease patient still on IV antibiotics. PLT transfused 06/11 Patient to follow-up with his oncology Dr. Mckeon as outpatient. 06/12 patient was noted with fevers, antibiotic change per ID 06/13 patient with acute respiratory failure requiring 6L by NC. CTA, palliative care consulted 06/14 patient is deteriorating, dessating, not compliant with O2 mask, he is on 7L by NC, abx reassuring, compensating. CTA no PE however with bibasilar effusions. Started on Lasix , IVF stopped 06/13. Palliative care is following. Per Dr Mckeon his oncology Dr patient cancer is terminal amd has short term survival. [facility] Dr [facility] patient symptoms are related to Ca and not infectious , OK to DC abx Patient is deteriorating, patient and decided for confort measures hospice tomorrow. Prognosis is guarded. Will DC abx, add morphine and continue lorazepam. Add duonebs, solumedrol Progress Note: Quality VTE Deep Vein Thrombosis/Pulmonary Embolism Present on Admission: No
--- NOTE | 2018-06-14 20:14 | P.PNID ---
Subjective Remarks: more SOB Now on ventimask no fever since 06/11 BC ne @ 2 days Antibiotics: vanco iv cefepime azithro Allergies/Adverse Reactions: Allergies No Known Allergies Allergy (Verified 06/06/18 14:51) Objective Vital Signs 06/13/18 22:54 06/14/18 03:57 06/14/18 08:00 Temperature 97.9 F 98.2 F 97.8 F Pulse Rate 92 H 90 108 H Respiratory Rate 24 36 H 28 H Blood Pressure 151/73 H 144/71 H 146/75 H Pulse Oximetry 93 L 91 L 91 L 06/14/18 10:50 06/14/18 10:55 06/14/18 12:00 Temperature 97.4 F L Pulse Rate 99 H 104 H Respiratory Rate 24 Blood Pressure 133/74 Pulse Oximetry 92 L 95 06/14/18 14:35 06/14/18 14:36 06/14/18 15:19 Temperature 97.7 F Pulse Rate 102 H Respiratory Rate 36 H Blood Pressure 144/89 H Pulse Oximetry 90 L 92 L Intake & Output 06/14/18 06/14/18 06/15/18 06:59 18:59 06:59 Intake Total 715 / 715 1100 / 1100 Balance 715 / 715 1100 / 1100 Weight 95 kg Intake: IV 715 / 715 1100 / 1100 NS Inj 1,000 ML @ 100 mls/hr IV 1000 / 1000 .CONT .Q10H [facility] Rx#:[id number] Maxipime Inj 2,000 MG In NS Inj 200 / 200 100 / 100 100 ML @ 200 mls/hr IV.SIG Q8H [facility] Rx#:[id number] Vancomycin Inj 1,500 MG In NS 515 / 515 Inj 500 ML @ 250 mls/hr IV.SIG Q24H [facility] Rx#:[id number] Other: Date of Last Bowel Movement 06/13/18 06/12/18 19:30 Blood - Peripheral Aerobic Blood Culture - Preliminary No growth in 2 days 06/12/18 19:30 Blood - Peripheral Anaerobic Blood Culture - Preliminary No growth in 2 days 06/12/18 13:30 Blood - Line Aerobic Blood Culture - Preliminary No growth in 2 days 06/12/18 13:30 Blood - Line Anaerobic Blood Culture - Preliminary No growth in 2 days 06/12/18 11:45 Clean Catch Urine Urine Culture - Final No growth in 48 hours 06/13/18 15:12 Stool Stool Occult Blood ([facility]) - Final Hemoccult negative Lab - Hematology Results 06/13/18 06/14/18 05:00 11:37 WBC 1.4 L 1.6 L RBC 2.59 L 2.69 L Hgb 7.4 L 7.5 L Hct 21.7 L 22.3 L MCV 83.6 83.1 MCH 28.7 27.9 MCHC 34.3 33.6 RDW 23.3 H 23.0 H Plt Count 25 L 20 L MPV 8.1 8.1 Prelim Diff (Auto) Manual diff required Slide review pending Neut % (Auto) 39.4 Lymph % (Auto) 42.9 [place] % (Auto) 10.7 H Eos % (Auto) 5.0 H Baso % (Auto) 2.0 Neut # (Auto) 0.6 L Lymph # (Auto) 0.7 L [place] # (Auto) 0.2 Eos # (Auto) 0.1 Baso # (Auto) 0.0 WBC Differential Manual diff final Manual diff final Seg Neuts % (Manual) 30 32 Band Neuts % (Manual) 21 H 24 H Lymphocytes % (Manual) 31 31 Monocytes % (Manual) 3 4 Eosinophils % (Manual) 8 H 1 Basophils % (Manual) 3 H 2 Blast Cells % (Manual) 4 H 6 H Abs Neuts (Manual) 0.7 L 0.9 L Differential Comment . . Platelet Estimate Low L Rare L Platelet Morphology Normal Normal Basophilic Stippling Faint H Keratocytes Occ H Lab - Chemistry Results 06/14/18 11:37 Sodium 143 Potassium 4.0 Chloride 116 H Carbon Dioxide 21.3 Anion Gap 6 BUN 8 Creatinine 1.10 Estimated GFR 66 L Random Glucose 86 Calcium 8.2 L Imaging: ITS Impressions Chest X-Ray 06/12/18 00:00 CONCLUSION: Stable appearance of the chest with bilateral opacities. Chest CTA 06/13/18 12:29 CONCLUSION: 1. Bilateral effusions are increased. 2. Right lower lobe masslike areas decreased in prominence otherwise stable nodules and parenchymal infiltrates. 3. No evidence for pulmonary embolism. Physical Exam: GENERAL: NAd chroniclally ill appearing desats easily when takes mask off SKIN: Warm and dry. no rash HEAD: Atraumatic. Normocephalic. EYES: Pupils equal and round. No scleral icterus. No injection or drainage. ENT: No nasal bleeding or discharge. Mucous membranes pink and moist. NECK: Trachea midline. No JVD. CARDIOVASCULAR: Regular rate and rhythm. RESPIRATORY: No accessory muscle use. Wheezing to auscultation. GASTROINTESTINAL: Abdomen soft, non-tender, nondistended. Hepatic and splenic margins not palpable. MUSCULOSKELETAL: Extremities without clubbing, cyanosis, or + mild edema. NEUROLOGICAL: Awake and alert. Non focal Normal speech. PSYCHIATRIC: calm Assessment and Plan - Plan Myelodysplastic syndrome with resultant pancytopenia: ANC improved to 900 Continue supportive care, previously received Dacogen x3 cycles. He remains cytopenic, supportive transfusions to maintain hemoglobin above 7.5 g/dL and platelet transfusion to maintain platelet count over 15,000/mcL. At previous visit I did treat him briefly with Neupogen for growth factor support for severe neutropenia. Should be noted that his most recent bone marrow biopsy from April 2018 revealed approximately 10% myeloblasts in the bone marrow. This represents a moderate reduction in absolute blast percentage which prior to initiation of Dacogen in the fall 2017 was noted to be closer to 17%. Pneumonia: PET scan fro October and chest CTA from 05/24 were dw radiologist: atypical PNA vs malignancy Diarrhea: Stool for C. difficile PCR negative History of lung cancer, prostate cancer and bladder cancer: These have been previously treated based on PET/CT imaging performed in the summer 2017 his solid tumor oncologic diagnoses are in remission. sputum clx cont cefepime, 2 gm Q 8 fu repeat blood clx cont azithromycin x 5 days total - d/c'd by Dr Josafat hamm Vancomycin repeat CXR in am fu temburt calderon RN @ b/s
--- NOTE | 2018-06-15 05:34 | XR ---
EXAM DATE: 06/15/2018 4:48 AM EST AGE/SEX: 72 years / Male INDICATIONS: Cough, chest congestion. CLINICAL DATA: This is the patient's subsequent encounter. Patient reports that signs and symptoms h ave been present for 1 week and indicates a pain score of 0/10. MEDICAL/SURGICAL HISTORY: . Leukemia. . Infusaport. Cardiac stents. COMPARISON: C, CHEST 1V SINGLE AP, 06/09/2018. . FINDINGS: Right [id number] tip in right atrium. Mild basilar airspace disease, increased on the left since ebru. Right apical pleural thickening. No pneumothorax. CONCLUSION: Mild basilar airspace disease slightly increased on the left since June 09. Differential diagnosi s includes bronchopneumonia. Stable right apical scarring. Electronically signed by: Fredrick Souza MD Board Certified Radiologist 06/15/2018 5:33 AM EST
[2018-06-15] MEDS ORDERED: Heparin Central Flush 100 UNIT/ML 5 ML Vial IV.FLUSH PRN ×2 (05:52)
[2018-06-15 07:18] LABS: Calcium 8.2 mg/dL (8.5-10.1); Carbon Dioxide 22.6 meq/L (21.0-32.0); Potassium 4.1 meq/L (3.5-5.1)
[2018-06-15 07:40] LABS: Baso % (Auto) 1.3 % (0.0-2.0); Eos % (Auto) 0.7 % (0.0-4.0); Lymph # (Auto) 0.4 th/mm3 (1.0-4.8); Lymph % (Auto) 31.5 % (9.0-44.0); Mean Corpuscular HGB Conc 34.2 % (32.0-36.0); Mean Corpuscular Hemoglobin 28.3 pg (27.0-34.0); Mean Corpuscular Volume 82.6 fL (80.0-100.0); Mean Platelet Volume 8.3 fL (7.0-11.0); Mono # (Auto) 0.1 th/mm3 (0.0-0.9); Mono % (Auto) 8.9 % (0.0-8.0); Neut # (Auto) 0.8 th/mm3 (1.8-7.7); Neut % (Auto) 57.6 % (16.0-70.0); Red Blood Count 2.37 mil/mm3 (4.50-5.90); Red Cell Distribution Width 22.8 % (11.6-17.2); White Blood Count 1.3 th/mm3 (4.0-11.0)
[2018-06-15 07:45] LABS: Hematocrit 19.6 % (39.0-51.0); Hemoglobin 6.7 gm/dL (13.0-17.0); Platelet Count 21 th/mm3 (150-450)
[2018-06-15] MEDS ORDERED: Acetaminophen 325 MG Tablet PO PRN (08:26)
[2018-06-15] MEDS: MethylPREDNISolone Sod Succinate Inj 40 MG/ML Vial IV.PUSH SCH ×4 (08:57→17:19)
[2018-06-15] MEDS: Clotrimazole 10 MG Troche BUCCAL SCH ×4 (08:57→17:19)
[2018-06-15] MEDS ORDERED: Sodium Chlor 0.9% Inj 250 ML IV.SIG SCH (09:00)
[2018-06-15] MEDS: Ferrous Sulfate 325 MG Tablet PO SCH (10:04)
[2018-06-15] MEDS: Megestrol Acetate Liq 400 MG/10 ML UDC PO SCH (10:05)
[2018-06-15 11:06] LABS: Blast Cells 5 % (0-0); Eosinophils 2 % (0-4); Lymphocytes 28 % (9-44); Monocytes 5 % (0-8); Platelet Estimate Rare (Normal); Platelet Morphology Normal (Normal)
--- NOTE | 2018-06-15 11:49 | P.PNONC ---
Subjective Interval history: Patient sitting on side of bed, mild distress noted. States that he wants to be discharged home tomorrow. Denies any chest pain or bleeding. Continues with shortness of breath. Objective Vital Signs/Intake & Output: Vital Signs 06/14/18 12:00 06/14/18 14:35 06/14/18 14:36 Temperature 97.4 F L Pulse Rate 104 H 102 H Respiratory Rate 36 H Blood Pressure 133/74 Pulse Oximetry 95 90 L 06/14/18 15:19 06/14/18 20:00 06/14/18 21:17 Temperature 97.7 F 97.4 F L Pulse Rate 99 H 92 H Respiratory Rate 22 18 Blood Pressure 144/89 H 158/85 H Pulse Oximetry 92 L 90 L 96 06/15/18 00:00 06/15/18 04:00 06/15/18 06:54 Temperature Pulse Rate 89 82 86 Respiratory Rate 22 18 16 Blood Pressure 130/57 L 128/53 L Pulse Oximetry 89 L 91 L 94 L 06/15/18 09:57 Temperature 97.5 F L Pulse Rate 102 H Respiratory Rate 20 Blood Pressure 145/76 H Pulse Oximetry 97 Intake & Output 06/14/18 06/15/18 06/15/18 18:59 06:59 18:59 Intake Total 1100 / 1100 200 / 200 Output Total 1400 / 1400 Balance 1100 / 1100 -1200 / -1200 Weight 95 kg Intake: IV 1100 / 1100 NS Inj 1,000 ML @ 100 mls/hr IV 1000 / 1000 .CONT .Q10H [facility] Rx#:[id number] Maxipime Inj 2,000 MG In NS Inj 100 / 100 100 ML @ 200 mls/hr IV.SIG Q8H [facility] Rx#:[id number] Oral 200 / 200 Output: Urine 1400 / 1400 Other: # Urine Diapers 2 Date of Last Bowel Movement 06/13/18 06/14/18 Result Diagrams: 06/15/18 06:15 06/15/18 06:15 Laboratory Results: Laboratory Results - last 24 hr 06/14/18 06/14/18 06/14/18 11:37 11:37 13:58 WBC 1.6 L RBC 2.69 L Hgb 7.5 L Hct 22.3 L MCV 83.1 MCH 27.9 MCHC 33.6 RDW 23.0 H Plt Count 20 L MPV 8.1 Prelim Diff (Auto) Slide review pending Neut % (Auto) 39.4 Lymph % (Auto) 42.9 [place] % (Auto) 10.7 H Eos % (Auto) 5.0 H Baso % (Auto) 2.0 Neut # (Auto) 0.6 L Lymph # (Auto) 0.7 L Dare # (Auto) 0.2 Eos # (Auto) 0.1 Baso # (Auto) 0.0 WBC Differential Manual diff final Seg Neuts % (Manual) 32 Band Neuts % (Manual) 24 H Lymphocytes % (Manual) 31 Monocytes % (Manual) 4 Eosinophils % (Manual) 1 Basophils % (Manual) 2 Blast Cells % (Manual) 6 H Abs Neuts (Manual) 0.9 L Differential Comment . Platelet Estimate Rare L Platelet Morphology Normal Basophilic Stippling Faint H Keratocytes Occ H Puncture Site Left radial Patient Temperature 98.6 O2 Saturation 92 ABG pH 7.42 ABG pCO2 28 L ABG pO2 70 ABG HCO3 18 L ABG O2 Content 17.7 ABG Base Excess -5.5 L ABG Methemoglobin 1.4 Maurice Test Present Hemoglobin 13.6 Carboxyhemoglobin 1.6 O2 Delivery Device Simple mask Liter Flow 10.00 Critical Value No Sodium 143 Potassium 4.0 Chloride 116 H Carbon Dioxide 21.3 Anion Gap 6 BUN 8 Creatinine 1.10 Estimated GFR 66 L Random Glucose 86 Calcium 8.2 L Blood Type Antibody Screen MTS Gel Crossmatch 06/15/18 06/15/18 06/15/18 06:15 06:15 10:10 WBC 1.3 L RBC 2.37 L Hgb 6.7 L* Hct 19.6 L* MCV 82.6 MCH 28.3 MCHC 34.2 RDW 22.8 H Plt Count 21 L MPV 8.3 Prelim Diff (Auto) Slide review pending Neut % (Auto) 57.6 Lymph % (Auto) 31.5 [place]are % (Auto) 8.9 H Eos % (Auto) 0.7 Baso % (Auto) 1.3 Neut # (Auto) 0.8 L Lymph # (Auto) 0.4 L Dare # (Auto) 0.1 Eos # (Auto) 0.0 Baso # (Auto) 0.0 WBC Differential Manual diff final Seg Neuts % (Manual) 36 Band Neuts % (Manual) 22 H Lymphocytes % (Manual) 28 Monocytes % (Manual) 5 Eosinophils % (Manual) 2 Basophils % (Manual) 2 Blast Cells % (Manual) 5 H Abs Neuts (Manual) 0.8 L Differential Comment . Platelet Estimate Rare L Platelet Morphology Normal Basophilic Stippling Keratocytes Puncture Site Patient Temperature O2 Saturation ABG pH ABG pCO2 ABG pO2 ABG HCO3 ABG O2 Content ABG Base Excess ABG Methemoglobin Maurice Test Hemoglobin Carboxyhemoglobin O2 Delivery Device Liter Flow Critical Value Sodium 141 Potassium 4.1 Chloride 110 H Carbon Dioxide 22.6 Anion Gap 8 BUN 12 Creatinine 1.18 Estimated GFR 61 L Random Glucose 128 H Calcium 8.2 L Blood Type O Negative Antibody Screen Negative MTS Gel Crossmatch See Detail Culture Results: Microbiology 06/12/18 19:30 Aerobic Blood Culture - Preliminary Blood - Peripheral No growth in 3 days Anaerobic Blood Culture - Preliminary No growth in 3 days 06/12/18 13:30 Aerobic Blood Culture - Preliminary Blood - Line No growth in 3 days Anaerobic Blood Culture - Preliminary No growth in 3 days 06/12/18 11:45 Urine Culture - Final Clean Catch Urine No growth in 48 hours 06/13/18 15:12 Stool Occult Blood ([facility]) - Final Stool Hemoccult negative Imaging Studies: Impressions Chest X-Ray 06/15/18 06:00 CONCLUSION: Mild basilar airspace disease slightly increased on the left since June 09. Differential diagnosis includes bronchopneumonia. Stable right apical scarring. Medications: Active Medications Generic Name Dose Route Start Last Admin Trade Name Freq PRN Reason Stop Dose Admin Acetaminophen 650 mg 06/06/18 14:14 06/11/18 23:53 Tylenol PO 650 mg Q4H PRN Administration Temp > 100.4 Acetaminophen 650 mg 06/11/18 12:00 06/11/18 14:01 Tylenol PO 650 mg Q4H PRN Administration SEE LABEL COMMENTS Albuterol 1 ampul 06/06/18 14:23 06/13/18 05:13 Duoneb Neb (Prn) NEB 1 ampul Q4HR NEB PRN Administration SHORTNESS OF BREATH Albuterol 1 ampul 06/14/18 14:00 06/15/18 06:52 Duoneb Neb (Ally) NEB 1 ampul Q6HR WHILE AWAKE NEB ALLY Administration Atorvastatin Calcium 40 mg 06/07/18 09:00 06/15/18 10:05 Lipitor PO 40 mg DAILY ALLY Administration Clotrimazole 10 mg 06/12/18 14:00 06/15/18 10:04 Mycelex Evangelist BUCCAL 10 mg 5 TIMES A DAY ALLY Administration Diphenhydramine HCl 25 mg 06/10/18 19:31 06/10/18 23:55 Benadryl PO 25 mg Q4H PRN Administration SEE LABEL COMMENTS Diphenhydramine HCl 25 mg 06/11/18 11:00 06/11/18 14:01 Benadryl PO 25 mg Q4H PRN Administration SEE LABEL COMMENTS Diphenoxylate HCl/Atropine 1 tab 06/11/18 12:00 06/13/18 08:55 Lomotil PO 1 tab Q6H PRN Administration DIARRHEA Ferrous Sulfate 325 mg 06/07/18 09:00 06/15/18 10:04 Ferosul PO 325 mg DAILY ALLY Administration Furosemide 40 mg 06/14/18 18:00 06/15/18 10:04 Lasix Inj IV.PUSH 40 mg BID@0900,1800 ALLY Administration Guaifenesin/Dextromethorphan 10 ml 06/06/18 17:12 06/11/18 11:29 Robitussin Dm Liq PO 10 ml Q4H PRN Administration COUGH Lorazepam 0.5 mg 06/13/18 16:49 06/14/18 13:13 Ativan PO 0.5 mg Q6H PRN Administration ANXIETY Megestrol Acetate 400 mg 06/09/18 18:00 06/15/18 10:05 Megace Liq PO 400 mg DAILY ALLY Administration Methylprednisolone Sodium Succinate 40 mg 06/14/18 18:00 06/15/18 08:57 Solumedrol Inj IV.PUSH 40 mg Q6H ALLY Administration Metoprolol Succinate 25 mg 06/07/18 09:00 06/15/18 10:04 Toprol Xl PO 25 mg DAILY ALLY Administration Potassium Chloride 20 meq 06/15/18 09:00 06/15/18 10:03 K-Dur PO 20 meq DAILY ALLY Administration Sodium Chloride 2 ml 06/06/18 21:00 06/15/18 10:05 Ns Flush IV.FLUSH 2 ml BID ALLY Administration Objective Remarks: GENERAL: Pale elderly male, in mild distress, sitting on the side of the bed on approach. SKIN: Pale, warm and dry. HEAD: Normocephalic. EYES: No scleral icterus. No injection or drainage. NECK: Supple, trachea midline. CARDIOVASCULAR: Regular rate and rhythm without murmurs. RESPIRATORY: Tachypneic. Scattered wheeze anteriorly. GASTROINTESTINAL: Abdomen soft, non-tender, nondistended. EXTREMITIES: No cyanosis, or edema. MUSCULOSKELETAL: Generalized weakness NEUROLOGICAL: No obvious focal deficit. Awake, alert, and oriented x3. Assessment/Plan - Plan This is a pleasant 72-year-old male with history of high-grade myelodysplastic syndrome. His most recent cycle of Dacogen was given under the care of Dr. Mckeon in April 2018. He was admitted 2 weeks ago with high-grade fever in the setting of neutropenia and was eventually discharged. He has come back with what appears to be failure to thrive. Plan: 1. Shortness of breath, CTA of the chest negative for pulmonary embolism. Stable parenchymal infiltrates noted completed antimicrobial therapy of azithromycin, vancomycin and cefepime on 06/14/2018. Solu-Medrol 40 mg IV push every 6 hours. 2. Anemia, hemoglobin 6.7 g/dL. 1 unit PRBCs ordered for today. CBC in a.m. 3. Continue to closely watch his respiratory status. 4. Continue supportive measures - Attending Statement The exam, history, and the medical decision-making described in the above note were completed with the assistance of the mid-level provider. I reviewed and agree with the findings presented. I attest that I had a [id number] encounter with the patient on the same day, and personally performed and documented my assessment and findings in the medical record. 72 yoM with AML. Currently receiving antibiotic therapy. Transfusion support for cytopenia due to disease and therapy.
[2018-06-15] MEDS: Acetaminophen 325 MG Tablet PO PRN (11:55)
--- NOTE | 2018-06-15 14:58 | P.PNIM ---
Subjective Interval history: Feels tired however says he is a little bit improved since yesterday. Still requiring 6 L by nasal cannula. Not coughing. He is desaturating with every movement. No nausea or vomiting. Has good urine output. Physical Exam Vital signs: Vital Signs 06/14/18 15:19 06/14/18 20:00 06/14/18 21:17 Temperature 97.7 F 97.4 F L Pulse Rate 99 H 92 H Respiratory Rate 22 18 Blood Pressure 144/89 H 158/85 H Pulse Oximetry 92 L 90 L 96 06/15/18 00:00 06/15/18 04:00 06/15/18 06:54 Temperature Pulse Rate 89 82 86 Respiratory Rate 22 18 16 Blood Pressure 130/57 L 128/53 L Pulse Oximetry 89 L 91 L 94 L 06/15/18 09:57 06/15/18 12:42 06/15/18 13:07 Temperature 97.5 F L 97.5 F L 97 F L Pulse Rate 102 H 85 84 Respiratory Rate 20 20 20 Blood Pressure 145/76 H 132/62 148/81 H Pulse Oximetry 97 96 96 06/15/18 13:39 Temperature Pulse Rate 85 Respiratory Rate 14 Blood Pressure Pulse Oximetry Intake & Output 06/14/18 06/15/18 06/15/18 18:59 06:59 18:59 Intake Total 1100 / 1100 200 / 200 0 / 0 Output Total 1400 / 1400 Balance 1100 / 1100 -1200 / -1200 0 / 0 Weight 95 kg Intake: IV 1100 / 1100 NS Inj 1,000 ML @ 100 mls/hr IV 1000 / 1000 .CONT .Q10H [facility] Rx#:[id number] Maxipime Inj 2,000 MG In NS Inj 100 / 100 100 ML @ 200 mls/hr IV.SIG Q8H [facility] Rx#:[id number] Oral 200 / 200 Intake (Blood Product) Amt 0 / 0 Rbc As-3 Leukoreduced Unit 0 / 0 [id number] Output: Urine 1400 / 1400 Other: # Urine Diapers 2 Date of Last Bowel Movement 06/13/18 06/14/18 Narrative: GENERAL: Well-nourished well-developed chronically ill-appearing elderly male, with shortness of breath, anxious. CARDIOVASCULAR: tachycardic. Regular rate and rhythm. RESPIRATORY: No accessory muscle use. Patient is sort of breath. Bibasilar crackles, decreased breath sounds, sob. GASTROINTESTINAL: Abdomen soft, non-tender, nondistended. Normoactive bowel sounds MUSCULOSKELETAL: Extremities without clubbing, cyanosis. 1+ bilat edema. NEUROLOGICAL: Awake and alert person place and time. No obvious cranial nerve deficits. Motor grossly within normal limits. Five out of 5 muscle strength in the arms and legs. Normal speech. SKIN: pale. No purpura. PSYCHIATRIC: Flat affect. Anxious. Results Labs CBC & Chem 7: 06/15/18 06:15 06/15/18 06:15 Labs: Microbiology 06/12/18 19:30 Blood - Peripheral Aerobic Blood Culture - Preliminary No growth in 3 days 06/12/18 19:30 Blood - Peripheral Anaerobic Blood Culture - Preliminary No growth in 3 days 06/12/18 13:30 Blood - Line Aerobic Blood Culture - Preliminary No growth in 3 days 06/12/18 13:30 Blood - Line Anaerobic Blood Culture - Preliminary No growth in 3 days 06/12/18 11:45 Clean Catch Urine Urine Culture - Final No growth in 48 hours Imaging Imaging: Impressions Chest X-Ray 06/15/18 06:00 CONCLUSION: Mild basilar airspace disease slightly increased on the left since June 09. Differential diagnosis includes bronchopneumonia. Stable right apical scarring. 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 CTA ordered to r/o PE, however patient is not a candidate for anticoagulation he has an IVC filter. CXR reviewed. Palliative care consulted for goals of care. Suspect severe sepsis with presenting hypotension, HR >90 with probable bilateral pneumonia, leukopenia. Sepsis resolving Follow-up with blood cultures, UA unremarkable Due to recent hospitalization and course of antibiotics, will consult infectious disease for further recommendations IV cefepime increased to 2 g every 8 hours per infectious disease, continue azithromycin continue vancomycin IV per ID recommendations following Diarrhea. C. difficile is negative 06/09 . Add Imodium. Acute kidney injury superimposed on chronic kidney disease stage IIlikely due to poor oral intake, organ dysfunction due to sepsis-IV fluid hydration, avoid nephrotoxins, hold home TIESHA inhibitor due to also superimposed hypotension Elevated troponin Ipatient has no complaint of chest pain this may be due to his acute kidney injury, will trend troponin I due to history of CAD and follow- up clinically. High-grade myelodysplastic syndromeconsult Dr. Purdy who had seen the patient during the previous hospitalization. Pancytopenia -worsening platelets likely due to sepsis and myelodysplastic syndrome, monitor, transfusions as needed, if platelets less than 15 K. Transfuse if hemoglobin drops less than 7.5 per oncology recommendation Transfuse 1U PLT on 06/11 Hyponatremia due to hypovolemianormal saline DO NOT RESUSCITATE status Physical therapy evaluation Discussed with the patient, nurse Discharge plan: Discharge when improved and cleared by infectious disease patient still on IV antibiotics. PLT transfused 06/11 Patient to follow-up with his oncology Dr. Mckeon as outpatient. 06/12 patient was noted with fevers, antibiotic change per ID 06/13 patient with acute respiratory failure requiring 6L by NC. CTA, palliative care consulted 06/14 patient is deteriorating, dessating, not compliant with O2 mask, he is on 7L by NC, abx reassuring, compensating. CTA no PE however with bibasilar effusions. Started on Lasix , IVF stopped 06/13. Palliative care is following. Per Dr Mckeon his oncology Dr patient cancer is terminal amd has short term survival. Discussed with Dr Davila from ID and [facility] patient symptoms are related to Ca and not infectious , OK to DC abx Patient is deteriorating, patient and decided for comfort measures hospice tomorrow. Prognosis is guarded. Will DC abx, add morphine and continue lorazepam. Add duonebs, solumedrol 06/15 patient still requiring 6L by NC. Hospice following Progress Note: Quality VTE Deep Vein Thrombosis/Pulmonary Embolism Present on Admission: No
[2018-06-15 15:26] VITALS: BP 114/60; TEMP 97.3
[2018-06-15 20:03] VITALS: PULSE 100; RESP 17
[2018-06-15 20:43] VITALS: O2SAT 90
[2018-06-15] MEDS ORDERED: Pharmacy Ordered Lab Info OTHER ONE (21:45)
--- NOTE | 2018-06-16 19:01 | P.DS ---
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 Notified:: Office Spoke with:: Raquel Date Notified:: 06/06/18 Time Notified:: 14:28 Ordering Provider: MAULIK 06/06/18 17:13 Consult to Infectious Diseases Routine Consulting Provider: Winnie Han Reason for Consultation: pneumonia, recent admission, immunosuppression with myleodysplastic syndrome. Notified:: Service Spoke with:: Molly Date Notified:: 06/06/18 Time Notified:: 17:16 Ordering Provider: MAULIK 06/07/18 08:31 Consult to Infectious Diseases Routine Consulting Provider: Sherrell Corona Preferred Glue Sprayer:: Sherrell Corona Patient known to:: Sherrell Corona Reason for Consultation: Pt known to last seen 05/27/18. Notified:: Service Spoke with:: Kallie Date Notified:: 06/07/18 Time Notified:: 08:49 Comments:: Ordering Provider: MARIO 06/13/18 12:29 Consult to Palliative Care Routine Consulting Provider: Kenna Ames Reason for Consultation: goals of care Notified:: Service Spoke with:: Ashley Date Notified:: 06/13/18 Time Notified:: 12:39 Ordering Provider: ZONIA Brief History from admission: 72 -year-old white male with a history of myelodysplastic syndrome on recent systemic chemotherapy back in April with Dr. Mckeon, prostate cancer, previous right-sided lung cancer status post resection and radiation, hypertension who was recently admitted on May 24 for sepsis with bilateral pneumonia and discharged on 05/29 with 7-day course of Levaquin, Zithromax, and steroids taper presented back with a 2-day history of increased weakness to the point where he is unable to get up and ambulate independently which is his baseline with also complains of chills and fevers. In addition he has had poor appetite for 2 days with increased nausea and episode of nonbilious vomiting today. He denies any abdominal pain or any diarrhea. He denies any dysuria urinary frequency or urgency. He reports dry cough no active shortness of breath or chest pain. He did follow-up with Dr. Mckeon post discharge and was given a blood transfusion 4 days ago on Sunday at [facility]. His chemo is currently still on hold. His who is at bedside is wanting to switch him over to Dr. Purdy as he was seen by him during the previous admission. During the previous admission, patient was on IV Zosyn , azithromycin, vancomycin. He did not require oxygen upon discharge to home. 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 CTA ordered to r/o PE, however patient is not a candidate for anticoagulation he has an IVC filter. CXR reviewed. Palliative care consulted for goals of care. Suspect severe sepsis with presenting hypotension, HR >90 with probable bilateral pneumonia, leukopenia. Sepsis resolving Follow-up with blood cultures, UA unremarkable Due to recent hospitalization and course of antibiotics, will consult infectious disease for further recommendations IV cefepime increased to 2 g every 8 hours per infectious disease, continue azithromycin continue vancomycin IV per ID recommendations following Diarrhea. C. difficile is negative 06/09 . Add Imodium. Acute kidney injury superimposed on chronic kidney disease stage IIlikely due to poor oral intake, organ dysfunction due to sepsis-IV fluid hydration, avoid nephrotoxins, hold home TIESHA inhibitor due to also superimposed hypotension Elevated troponin Ipatient has no complaint of chest pain this may be due to his acute kidney injury, will trend troponin I due to history of CAD and follow- up clinically. High-grade myelodysplastic syndromeconsult Dr. Purdy who had seen the patient during the previous hospitalization. Pancytopenia -worsening platelets likely due to sepsis and myelodysplastic syndrome, monitor, transfusions as needed, if platelets less than 15 K. Transfuse if hemoglobin drops less than 7.5 per oncology recommendation Transfuse 1U PLT on 06/11 Hyponatremia due to hypovolemianormal saline DO NOT RESUSCITATE status Physical therapy evaluation Discussed with the patient, nurse Discharge plan: Discharge when improved and cleared by infectious disease patient still on IV antibiotics. PLT transfused 06/11 Patient to follow-up with his oncology Dr. Mckeon as outpatient. 06/12 patient was noted with fevers, antibiotic change per ID 06/13 patient with acute respiratory failure requiring 6L by [place]. CTA, palliative care consulted 06/14 patient is deteriorating, dessating, not compliant with O2 mask, he is on 7L by [place], abx reassuring, compensating. CTA no PE however with bibasilar effusions. Started on Lasix , IVF stopped 06/13. Palliative care is following. Per Dr Mckeon his oncology patient cancer is terminal amd has short term survival. Discussed with Dr Davila from ID and belives patient symptoms are related to Ca and not infectious , OK to DC abx Patient is deteriorating, patient and decided for comfort measures hospice tomorrow. Prognosis is guarded. Will DC abx, add morphine and continue lorazepam. Add duonebs, solumedrol 06/15 patient still requiring 6L by [place]. Hospice following Patient is DC to hospice in deteriorating condition Time Spent with Patient Total time spent providing and/or coordinating discharge services: > 30 min Quality: VTE Deep Vein Thrombosis/Pulmonary Embolism Present on Admission: No Exam Narrative Exam Narrative: GENERAL: Well-nourished well-developed chronically ill- appearing elderly male, with shortness of breath, anxious. CARDIOVASCULAR: tachycardic. Regular rate and rhythm. RESPIRATORY: No accessory muscle use. Patient is sort of breath. Bibasilar crackles, decreased breath sounds, sob. GASTROINTESTINAL: Abdomen soft, non-tender, nondistended. Normoactive bowel sounds MUSCULOSKELETAL: Extremities without clubbing, cyanosis. 1+ bilat edema. NEUROLOGICAL: Awake and alert person place and time. No obvious cranial nerve deficits. Motor grossly within normal limits. Five out of 5 muscle strength in the arms and legs. Normal speech. SKIN: pale. No purpura. PSYCHIATRIC: Flat affect. Anxious. Results Labs on day of discharge: Preliminary micro results at discharge 06/12/18 19:30 Aerobic Blood Culture - Preliminary Blood - Peripheral No growth in 4 days Anaerobic Blood Culture - Preliminary No growth in 4 days 06/12/18 13:30 Aerobic Blood Culture - Preliminary Blood - Line No growth in 4 days Anaerobic Blood Culture - Preliminary No growth in 4 days Impressions ITS Impressions Chest CTA 06/13/18 12:29 CONCLUSION: 1. Bilateral effusions are increased. 2. Right lower lobe masslike areas decreased in prominence otherwise stable nodules and parenchymal infiltrates. 3. No evidence for pulmonary embolism. Chest X-Ray 06/15/18 06:00 CONCLUSION: Mild basilar airspace disease slightly increased on the left since June 09. Differential diagnosis includes bronchopneumonia. Stable right apical scarring. Discharge Plan Discharge Disposition Patient Disposition: [facility] Hospice[facility]Med Facility Discharge Condition Condition: Critical Discharge Order Discharge Orders: Discharge Order (Routine); Ordered 06/15/18 Ordered By: Promise Gooden Discharge Details Discharge Comment: DC to hospice when arrangements are done Physicians Team Primary Care Provider: Vadim Myrick Attending Provider: Promise Gooden Other Providers: Eder Purdy ; Winnie Han ; Sherrell Corona ; Kenna Ames Rxs /Orders / Referrals /Forms Prescriptions: Continue atorvastatin 40 mg Tablet 40 mg PO DAILY RF: 0 amlodipine 10 mg Tablet 10 mg PO DAILY RF: 0 benazepril 40 mg Tablet 40 mg PO DAILY RF: 0 ferrous sulfate 325 mg (65 mg iron) Tablet,Delayed Release (Dr/Ec) 325 mg PO DAILY RF: 0 mometasone-formoterol [Dulera] 100-5 mcg/actuation Hfa Aerosol Inhaler 2 puff INHALATION Q12H RF: 0 cyanocobalamin (vitamin B-12) [Vitamin B-12] 5,000 mcg Tablet, Sublingual 5,000 mcg SUBLINGUAL DAILY RF: 0 niacin 1,000 mg Tablet Extended Release 24 Hr 1,000 mg PO DAILY RF: 0 hydrochlorothiazide 25 mg Tablet 25 mg PO DAILY RF: 0 cholecalciferol (vitamin D3) [Vitamin D3] 5,000 unit Tablet 5,000 unit PO DAILY RF: 0 metoprolol succinate 100 mg Cap,Sprinkle,Er 24hr Dose Pack 100 mg PO DAILY RF: 0 Referrals: Vadim Myrick MD [Primary Care Provider] - See Instructions Discharge Instructions Patient Printed Instructions: Metoprolol (By mouth) Status ED Status: Left Department Discharge Information Discharge Date/Time: 06/15/18 20:55
== END 2018-06-15 20:55 | disposition hospice, inpatient (51) | DRG 871 ==
LOC: NEPD 11:00 → NEDA 14:01 → NEDH 16:52 → HCIN 18:18
PROVIDERS: ADMIT Hospitalist; ATTEND Hospitalist
CPT/HCPCS: 36430; 36600; 71010; 71020; 71045; 71046; 71275; 76937; 80048; 80053; 80202; 81001; 82272; 82550; 82565; 82805; 83605; 83735; 84443; 84484; 85025; 85610; 85730; 86850; 86900; 86901; 86923; 87040; 87086; 87275; 87276; 87493; 87804; 90761; 90774; 90784; 93005; 94640; 94664; 94665; 96361; 96374; 97110; 97162; 97530; 99285; C1014; C1018; C8952; J0456; J0692; J1940; J2020; J2405; J2920; J3370; J7030; J7040; J7050; P9016; P9035; P9040; Q9967